=== PATIENT | male | born 1960 | race Caucasian/White ===

== ENCOUNTER 2016-06-28 21:56 | Observation (INO) | payer BC ==
[2016-06-28] MEDS ORDERED: NITROGLYCERIN OINT 1 INCH/GM PACKET TOPICAL STA (22:24)
[2016-06-28] MEDS ORDERED: ASPIRIN 81 MG CHEW PO STA (22:25)
--- NOTE | 2016-06-28 22:28 | ED ---
General Adult HPI - General Chief complaint: Chest Pain Stated complaint: shoulder, arm, facial tingling Time Seen by Provider: 06/28/16 22:15 Source: patient, family, RN notes reviewed Mode of arrival: ambulatory Limitations: no limitations - History of Present Illness Initial comments: Patient is a pleasant 46-year-old male presenting to the emergency Department with complaints of paresthesias. Onset was several days ago. Patient has been under increased stress with loss of his mother. Patient has complaints of paresthesias on both sides of his face. Patient feels like his skin is been burned and he needs to stretch it out. Patient does have an ache in his left shoulder. Patient also has 8 somewhat of his left arm and both of his legs. Patient has some sort of on sensation in his chest however this is difficult to describe. Patient states it is not pain. Patient states he does not discomfort. Patient does not feel stressed at this time. No history of similar symptoms previously. No weakness or confusion. - Related Data Home Medications Medication Instructions Recorded Confirmed Aspirin [Adult Low Dose Aspirin EC] 81 mg PO BID 06/28/16 06/28/16 Atenolol [Tenormin] 25 mg PO BID 06/28/16 06/28/16 Glucosam/Aman-Msm1/C/Steven/Bosw 1 tab PO HS 06/28/16 06/28/16 [Glucosamine-Chondroitin Tablet] Lisinopril-Hctz 10-12.5 mg 1 tab PO DAILY 06/28/16 06/28/16 [Zestoretic 10-12.5] Ranitidine HCl [Zantac] 150 mg PO HS 06/28/16 06/28/16 amLODIPine [Norvasc] 5 mg PO HS 06/28/16 06/28/16 Allergies Allergy/AdvReac Type Severity Reaction Status Date / Time No Known Allergies Allergy Verified 06/28/16 22:35 Review of Systems ROS Statement: Those systems with pertinent positive or pertinent negative responses have been documented in the HPI. ROS Other: All systems not noted in ROS Statement are negative. Constitutional: Denies: fever Eyes: Denies: eye pain ENT: Denies: ear pain Respiratory: Denies: cough, dyspnea Cardiovascular: Denies: palpitations Endocrine: Reports: fatigue Gastrointestinal: Denies: abdominal pain Genitourinary: Denies: urgency Musculoskeletal: Denies: arthralgia Skin: Denies: rash Neurological: Denies: weakness Past Medical History Past Medical History: Hyperlipidemia, Hypertension, Supraventricular Tachycardia (SVT) History of Any Multi-Drug Resistant Organisms: None Reported Past Surgical History: No Surgical Hx Reported Past Psychological History: No Psychological Hx Reported Smoking Status: Never smoker Past Alcohol Use History: None Reported Past Drug Use History: None Reported General Exam Limitations: no limitations General appearance: alert, in no apparent distress Head exam: Present: atraumatic Eye exam: Present: normal appearance, PERRL ENT exam: Present: normal oropharynx Neck exam: Present: normal inspection Respiratory exam: Present: normal lung sounds bilaterally. Absent: chest wall tenderness Cardiovascular Exam: Present: regular rate, normal rhythm Expanded Peripheral pulses: 2+: Radial (R), Radial (L), Posterior Tibialis (R), Posterior Tibialis (L) GI/Abdominal exam: Present: soft. Absent: tenderness Extremities exam: Present: normal inspection. Absent: pedal edema, calf tenderness Neurological exam: Present: alert, oriented X3, CN II-XII intact. Absent: motor sensory deficit Expanded Speech: Present: fluid speech Cranial nerves: EOM's Intact: Normal, Facial Sensation: Normal Sensory exam: Upper Extremity Light Touch: Normal, Lower Extremity Light Touch: Normal Motor strength exam: RUE: 5, LUE: 5, RLE: 5, LLE: 5 Eye Response: (4) open spontaneously Motor Response: (6) obeys commands Verbal Response: (5) oriented Psychiatric exam: Present: normal affect, normal mood Skin exam: Present: normal color Course Vital Signs 06/28/16 06/28/16 22:03 23:17 Temperature 99.6 F Pulse Rate 59 L 69 Respiratory 16 18 Rate Blood Pressure 146/72 116/57 O2 Sat by Pulse 95 95 Oximetry EKG Findings - EKG Comments: EKG Findings:: Normal sinus rhythm 64. For screening AV block with a W[place] of 206. QRS 112. QT 408. QTC 420. Normal axis. LVH criteria. Septal and inferior Q waves. No acute ST change. Medical Decision Making - Medical Decision Making Patient reevaluated and resting comfortably in bed. Patient and family updated on results and plan. Dr. vines notified for admission for Dr. Sullivan. - Lab Data Result diagrams: 06/28/16 22:53 06/28/16 22:53 Lab Results 06/28/16 06/28/16 06/28/16 Range/Units 22:53 22:53 22:53 WBC (3.8-10.6) k/uL RBC (4.30-5.90) m/uL Hgb (13.0-17.5) gm/dL Hct (39.0-53.0) % MCV (80.0-100.0) fL MCH (25.0-35.0) pg MCHC (31.0-37.0) g/dL RDW (11.5-15.5) % Plt Count (150-450) k/uL Neutrophils % % Lymphocytes % % Monocytes % % Eosinophils % % Basophils % % Neutrophils # (1.3-7.7) k/uL Lymphocytes # (1.0-4.8) k/uL Monocytes # (0-1.0) k/uL Eosinophils # (0-0.7) k/uL Basophils # (0-0.2) k/uL PT 10.4 (9.0-12.0) sec INR 1.0 (<1.1) APTT 23.0 (22.0-30.0) sec D-Dimer 0.42 (<0.60) mg/L FEU Sodium 139 (137-145) mmol/L Potassium 4.1 (3.5-5.1) mmol/L Chloride 103 (98-107) mmol/L Carbon Dioxide 24 (22-30) mmol/L Anion Gap 12 mmol/L BUN 18 (9-20) mg/dL Creatinine 0.99 (0.66-1.25) mg/dL Est GFR (MDRD) Af Amer >60 (>60 ml/min/1.73 sqM) Est GFR (MDRD) Non-Af >60 (>60 ml/min/1.73 sqM) Glucose 201 H (74-99) mg/dL Calcium 9.4 (8.4-10.2) mg/dL Magnesium 1.7 (1.6-2.3) mg/dL Total Bilirubin 0.6 (0.2-1.3) mg/dL AST 29 (17-59) U/L ALT 52 (21-72) U/L Alkaline Phosphatase 65 (38-126) U/L Total Creatine Kinase 134 (55-170) U/L CK-MB (CK-2) 1.0 (0.0-2.4) ng/mL CK-MB (CK-2) Rel Index 0.7 Troponin I <0.012 (0.000-0.034) ng/mL Total Protein 7.1 (6.3-8.2) g/dL Albumin 4.0 (3.5-5.0) g/dL 06/28/16 Range/Units 22:53 WBC 7.3 (3.8-10.6) k/uL RBC 4.84 (4.30-5.90) m/uL Hgb 15.6 (13.0-17.5) gm/dL Hct 44.3 (39.0-53.0) % MCV 91.4 (80.0-100.0) fL MCH 32.2 (25.0-35.0) pg MCHC 35.2 (31.0-37.0) g/dL RDW 13.3 (11.5-15.5) % Plt Count 190 (150-450) k/uL Neutrophils % 52 % Lymphocytes % 38 % Monocytes % 6 % Eosinophils % 1 % Basophils % 1 % Neutrophils # 3.8 (1.3-7.7) k/uL Lymphocytes # 2.8 (1.0-4.8) k/uL Monocytes # 0.5 (0-1.0) k/uL Eosinophils # 0.1 (0-0.7) k/uL Basophils # 0.1 (0-0.2) k/uL PT (9.0-12.0) sec INR (<1.1) APTT (22.0-30.0) sec D-Dimer (<0.60) mg/L FEU Sodium (137-145) mmol/L Potassium (3.5-5.1) mmol/L Chloride (98-107) mmol/L Carbon Dioxide (22-30) mmol/L Anion Gap mmol/L BUN (9-20) mg/dL Creatinine (0.66-1.25) mg/dL Est GFR (MDRD) Af Amer (>60 ml/min/1.73 sqM) Est GFR (MDRD) Non-Af (>60 ml/min/1.73 sqM) Glucose (74-99) mg/dL Calcium (8.4-10.2) mg/dL Magnesium (1.6-2.3) mg/dL Total Bilirubin (0.2-1.3) mg/dL AST (17-59) U/L ALT (21-72) U/L Alkaline Phosphatase (38-126) U/L Total Creatine Kinase (55-170) U/L CK-MB (CK-2) (0.0-2.4) ng/mL CK-MB (CK-2) Rel Index Troponin I (0.000-0.034) ng/mL Total Protein (6.3-8.2) g/dL Albumin (3.5-5.0) g/dL - Radiology Data Radiology results: image reviewed (Two-view chest x-ray shows no acute process) Disposition Clinical Impression: Chest pain, Hyperglycemia Disposition: ADMITTED IP TO THIS [facility] Referrals: Nba Sullivan DO [Primary Care Provider] - 1-2 days Decision Time: 00:09
[2016-06-28 23:03] LABS: Basophils # (A) 0.1 k/uL (0-0.2); Basophils % (A) 1 %; CH 32.2; CHCM 35.3; Eosinophils # (A) 0.1 k/uL (0-0.7); Eosinophils % (A) 1 %; HCT 44.3 % (39.0-53.0); HDW 2.84; HGB 15.6 gm/dL (13.0-17.5); Luc # (Auto) 0.11; Luc % (Auto) 2; Lymphocytes # (A) 2.8 k/uL (1.0-4.8); Lymphocytes % (A) 38 %; MCH 32.2 pg (25.0-35.0); MCHC 35.2 g/dL (31.0-37.0); MCV 91.4 fL (80.0-100.0); Mean Platelet Volume 7.3; Monocytes # (A) 0.5 k/uL (0-1.0); Monocytes % (A) 6 %; Neutrophils # (A) 3.8 k/uL (1.3-7.7); Neutrophils % (A) 52 %; RBC 4.84 m/uL (4.30-5.90); RDW 13.3 % (11.5-15.5); WBC 7.3 k/uL (3.8-10.6); WBC (Perox) 7.39
[2016-06-28 23:14] LABS: ALT 52 U/L (21-72); AST 29 U/L (17-59); Alkaline Phosphatase 65 U/L (38-126); Anion Gap 12 mmol/L; Blood Urea Nitrogen 18 mg/dL (9-20); Calcium 9.4 mg/dL (8.4-10.2); Carbon Dioxide 24 mmol/L (22-30); Chloride 103 mmol/L (98-107); Glucose 201 mg/dL (74-99); Magnesium 1.7 mg/dL (1.6-2.3); Non-African American GFR(MDRD) >60 (>60 ml/min/1.73 sqM); Potassium 4.1 mmol/L (3.5-5.1); Sodium 139 mmol/L (137-145); Total Bilirubin 0.6 mg/dL (0.2-1.3); Total Protein 7.1 g/dL (6.3-8.2)
[2016-06-28 23:21] LABS: Prothrombin Time 10.4 sec (9.0-12.0)
--- NOTE | 2016-06-28 23:31 | XR ---
EXAM: XR Chest, 2 Views CLINICAL HISTORY: Reason: Chest Pain TECHNIQUE: Frontal and lateral views of the chest. COMPARISON: No relevant prior studies available. FINDINGS: Lungs: Unremarkable. No consolidation. Pleural space: No pleural effusion. No pneumothorax. Heart: Unremarkable. No cardiomegaly. Mediastinum: Unremarkable. Bones/joints: Unremarkable. IMPRESSION: No acute cardiopulmonary disease.
[2016-06-28 23:41] LABS: Creatine Kinase 134 U/L (55-170)
[2016-06-28 23:55] LABS: Troponin I <0.012 ng/mL (0.000-0.034)
[2016-06-29] MEDS ORDERED: NITROGLYCERIN SL TABS 0.4 MG TAB SUBLINGUAL PRN (00:09)
[2016-06-29 01:06] VITALS: BMI 43.4
[2016-06-29] MEDS: NITROGLYCERIN OINT 1 INCH/GM PACKET TOPICAL SCH ×2 (06:44→12:57)
[2016-06-29 07:10] LABS: Creatine Kinase 92 U/L (55-170)
[2016-06-29 07:23] LABS: Creatine Kinase MB 0.6 ng/mL (0.0-2.4); Troponin I <0.012 ng/mL (0.000-0.034)
[2016-06-29] MEDS ORDERED: ASPIRIN 81 MG CHEW PO SCH (09:00)
[2016-06-29] MEDS ORDERED: LISINOPRIL-HCTZ 10-12.5 MG 1 EACH TAB PO SCH (09:00)
[2016-06-29] MEDS ORDERED: ATENOLOL 25 MG TAB PO SCH (09:00)
[2016-06-29] MEDS ORDERED: ENOXAPARIN 40 MG/0.4 ML SYRINGE SQ SCH (09:00)
[2016-06-29] MEDS ORDERED: FAMOTIDINE 20 MG TAB PO SCH (09:00)
--- NOTE | 2016-06-29 11:18 | CONS ---
DATE OF CONSULTATION: Nirmal Marks is a 56-year-old obese male who has been under a considerable amount of stress ( ) with his mother's . He has not been taking care of himself. His weight has gone up and he has been drinking pop regularly. His blood sugars are consistently in the 200s. He presented with numbness and tingling in the face, funny sensations behind his eyes, visual symptoms, paresthesias in the left arm, vague sensation in the left shoulder, and paresthesias and vague sensation in the leg on the left side. His 12-lead ECG shows sinus tachycardia and Q waves in the inferior leads and ( ) R waves in the precordial leads. His cardiac enzymes are normal. His blood sugar is 201. Liver functions are normal, but he has had a past history of abnormal LFTs and he is on statins. Statins were discontinued. Hemoglobin is normal. REVIEW OF SYSTEMS: No fever, chills or rigors. No cough or expectoration. No nausea, vomiting, or diarrhea. No hematuria or dysuria. No strokes. No recent seizures. Past medical history of hypertension, dyslipidemia, possibly nonsustained ventricular tachycardia. On examination, his blood pressure is in the normal range 111/56 mmHg, heart rate in the 60s, afebrile, 98.1 degrees Fahrenheit. Head and neck examination is normal. No JVD, thyromegaly or carotid bruit. Heart sounds, S1 and S2 are normal. Breath sounds are normal. Abdomen is soft, nontender. Extremities are warm, no edema. IMPRESSION: 1. Paresthesias in the face, right side of the face, left arm and left leg with no motor symptoms. 2. Elevated blood sugar levels and likely diabetes. 3. Dyslipidemia, but has intolerance to statins on account of liver function abnormalities. 4. Hypertension. Blood pressure is well controlled. 5. His cardiac testing last year showed nonsustained ventricular tachycardia. Currently, the stress test was normal. SUGGEST: From a cardiac standpoint, this gentleman has not had an acute myocardial infarction nor are his symptoms consistent with angina. He is having paresthesias on the right side of the face and the left side of the body and by neurologic workup may be appropriate I would look at metabolic factors such as diabetes. Also he will see Dr. Sullivan in the next 10 days. I would recommend that he sees Dr. Nancy Sheriff in the next 1 to 2 weeks and reassessment of LV function either with 2-D echo or with cardiac ( ) may be considered. This was discussed with the patient and his daughters.
[2016-06-29 11:52] LABS: Creatine Kinase MB 0.6 ng/mL (0.0-2.4); Troponin I 0.013 ng/mL (0.000-0.034)
[2016-06-29] MEDS ORDERED: RX INFO: IV CONTRAST WAS GIVEN 1 EACH MISC MISCELLANE PRN (12:59)
[2016-06-29] MEDS ORDERED: metFORMIN 500 MG TAB PO SCH (13:30)
--- NOTE | 2016-06-29 14:02 | HP ---
DATE OF ADMISSION: 06/29/2016 PRESENTING COMPLAINT: Multiple histories. HISTORY OF PRESENTING COMPLAINT: This is a very pleasant 56-year-old patient of Dr. Sullivan whose chronic stable medical conditions include hypertension, hyperlipidemia, kidney stones, and a fatty Patient just lost his mother about a week ago. Since then is rather grieving. At the same time, the patient has a multitude of symptoms. Patient has not been sleeping well. Maybe about 4 or 5 hours a night. Patient has some diffuse disease. Sometimes felt chest discomfort. All the time he feels some tingling in the left arm, and sometimes in the right arm. Sometimes feels like a floating sensation. Patient's sugars have been running high. Close to 160 in the morning. Patient was also trying to lose weight. Patient has had a cardiac work-up by Dr. Sheriff as an outpatient that was negative. Because of multitude of these symptoms, he presented. REVIEW OF SYSTEMS: CONSTITUTIONAL: Tired. HEENT: As above. RESPIRATORY: None. CARDIOVASCULAR: As above. GASTROINTESTINAL: None. GENITOURINARY: None. . MUSCULOSKELETAL: None. DERMATOLOGIC: None. HEMATOLOGIC: None. LYMPHATIC: None. PSYCHIATRY: Anxious. NEUROLOGICAL: Nonspecific. No focal. PAST MEDICAL HISTORY: History of hypertension, hyperlipidemia, renal stones, fatty liver. PAST SURGICAL HISTORY: None. SOCIAL HISTORY: Patient lives with is 4 children. Works at a [employer]. No smoking, alcohol. FAMILY HISTORY: Noncontributory to presentation. HOME MEDICATIONS: 1. Norvasc 5 mg p.o. q.h.s. 2. Zantac 150 mg p.o. q.h.s. 3. Zestoretic one tablet p.o. daily. 4. Glucosamine/chondroitin 1 tablet p.o. q.h.s. 5. Tenormin 25 mg p.o. b.i.d. 6. Aspirin 81 mg p.o. b.i.d. ALLERGIES: None. On examination, temperature 99.6, pulse 59, respiratory rate 16, blood pressure 146/92, pulse ox 95% on 2 L. GENERAL APPEARANCE: Well built, BMI of 43.4. Patient sitting up, anxious-appearing. EYES: Pupil equal, conjunctivae normal. HEENT: Oral cavity normal. NECK: JVD not raised. Mass not palpable. RESPIRATORY: Effort normal. LUNGS: Clear. CARDIOVASCULAR: First and second sounds normal. No edema. ABDOMEN: Soft, nontender, liver and spleen not palpable. LYMPHATIC: No lymph nodes palpable in neck or axillae. PSYCHIATRY: Alert and oriented x3. Mood and affect anxious-appearing. NEUROLOGICAL: Pupils equal. Cranial nerves grossly intact. Power and sensation grossly intact. INVESTIGATIONS: White count 7.3, hemoglobin 15.6, potassium 4.1, glucose 201. Troponin x3 negative. Chest x-ray negative. EKG normal sinus rhythm, poor R-wave progression. ASSESSMENT: 1. The patient present with multitude of symptoms, with no anatomical definition, has not been sleeping well. His symptoms are more psychosomatic. 2. Diabetes mellitus type 2, new diagnosis. 3. Essential hypertension. 4. Hyperlipidemia. 5. Fatty liver. 6. Morbid obesity, body mass index below 43.4. PLAN: Cardiology was consulted, but highly doubt this to be cardiac presentation. Negative cardiac work-up as outpatient. Patient will be started on metformin 500 mg twice a day. Will give patient melatonin so that he can sleep at night. Will do a CT scan of the brain with contrast, though highly doubt this to be a neuro presentation, mainly psychosomatic given the grieving from the loss of his mother.
--- NOTE | 2016-06-29 15:38 | CT ---
EXAMINATION TYPE: CT brain w con DATE OF EXAM: 06/29/2016 3:27 PM COMPARISON: NONE HISTORY: 56-year-old male with facial numbness and left arm numbness. CT DLP: 1071.00 mGycm Automated exposure control for dose reduction was used. Technique: Contiguous axial scanning of the brain is performed with IV Contrast, patient injected wit h 100 mL of Omnipaque 300. Coronal/sagittal reconstructions performed. FINDINGS: There is mild to moderate cerebral cortical volume loss. There is no abnormal enhancing mass or midl ine shift identified. No hydrocephalus. Large polyp or mucosal retention cyst within the left maxillary sinus. Additional lobulated mucosal t hickening within the right maxillary sinus. Mild mucosal thickening right ethmoid air cells. Trace opacification in inferior left mastoid air cells. There is rightward nasal septal deviation. Or bits and globes are intact. IMPRESSION: 1. Aside from mild to moderate cerebral cortical atrophy, negative contrast enhanced head CT exam. 2. Moderate chronic paranasal sinus disease. 3. Minimal trapped fluid in the inferior left mastoid air cells. Correlate for any mastoid pain to ex clude mastoiditis.
[2016-06-29 17:28] VITALS: BP 146/70; PULSE 61; RESP 18; TEMP 99.1
[2016-06-29] MEDS ORDERED: amLODIPine 5 MG TAB PO SCH (21:00)
--- NOTE | 2016-06-30 08:45 | DS ---
DATE OF ADMISSION: 06/29/2016 DATE OF DISCHARGE: 06/29/2016 FINAL DIAGNOSIS(ES): 1. Aches and pains, psychosomatic acute from bereavement in the family. 2. Diabetes mellitus type 2, on oral hypoglycemic. New diagnosis. 3. Essential hypertension. 4. Hyperlipidemia. 5. Fatty liver. 6. Morbid obesity; body mass index of 43.4. HOSPITAL COURSE: This patient who recently lost his mother presented with multiple symptoms no in an anatomical distribution. More compatible with bereavement, sleep deprivation. Sugars have been running high. Started on metformin. Seen by cardiology and did have a CT scan of the brain to make sure nothing really showed up. Did counselling over getting enough sleep, grief and grieving counselor [employer]. INVESTIGATIONS: The patient troponins are negative. CT scan of the brain with contrast was negative. CONSULTATIONS: Dr. Marv Arana from cardiology. DISCHARGE MEDICATIONS: 1. Aspirin 81 mg a day. 2. Tenormin 25 mg b.i.d. 3. Glucosamine/chondroitin 1 tablet p.o. q.h.s. 4. Zestoretic 11/18.5 1 tablet p.o. daily. 5. Zantac 150 mg p.o. q.h.s. 6. Norvasc 5 mg p.o. q.h.s. 7. Glucophage 500 mg p.o. b.i.d. Follow-up with Dr. Sullivan in 3 days. Follow up with Dr. Nancy Sheriff in 2 weeks.
[2016-06-30] MEDS ORDERED: ASPIRIN 325 MG TAB PO SCH (09:00)
== END 2016-06-29 18:30 | disposition home or self-care (01) ==
LOC: EC 21:56 → 3OBS 06-29 00:09
PROVIDERS: ADMIT Hospitalist; ATTEND Hospitalist
DX: R52 Pain, unspecified (principal); E11.65 Type 2 diabetes mellitus with hyperglycemia; R20.0 Anesthesia of skin; R20.2 Paresthesia of skin; R07.89 Other chest pain; Z72.820 Sleep deprivation; Z63.4 Disappearance and death of family member; E78.5 Hyperlipidemia, unspecified; I10 Essential (primary) hypertension; I47.1 Supraventricular tachycardia; E66.01 Morbid (severe) obesity due to excess calories; Z68.41 Body mass index [BMI] 40.0-44.9, adult; Z79.82 Long term (current) use of aspirin; Z79.899 Other long term (current) drug therapy; Z87.442 Personal history of urinary calculi; K76.0 Fatty (change of) liver, not elsewhere classified
CPT/HCPCS: 96372; 99285; 36415; 93005; 85379; 80053; 82550 ×2; 82553 ×2; 83735; 84484 ×2; 85025; 85610; 85730; 71020; 70460; G0378; J1650; Q9967

== ENCOUNTER 2018-05-25 09:56 | Day surgery (SDC) | payer BC ==
[2018-05-22 16:22] VITALS: BMI 43.4
[~2018-05-25 09:56] MED LIST: LACTATED RINGERS 1,000 ML IV SCH
[2018-05-25 10:17] VITALS: TEMP 98.2
[2018-05-25 10:41] LABS: Glucose,Whole Blood 158 mg/dL (75-99)
[2018-05-25] MEDS ORDERED: PROPOFOL 10 MG/ML 20 ML VIAL IV ONE (12:36)
[2018-05-25] MEDS ORDERED: LIDOCAINE 1% INJ 10MG/ML (20 ML MDV) ONE (12:36)
--- NOTE | 2018-05-25 13:14 | P.PCN ---
Date of Procedure: 05/25/18 Description of Procedure: BRIEF HISTORY: Patient is a 58-year-old pleasant male scheduled for an elective colonoscopy as a part of colorectal cancer screening. The patient denies any change in bowels, constipation, diarrhea, hematochezia or melena. No abdominal pain reported. The patient has never had a colonoscopy in the past. He denies any history of colon cancer. PROCEDURE PERFORMED: Colonoscopy. PREOPERATIVE DIAGNOSIS: Colon cancer screening, no previous colonoscopy. ESTIMATED BLOOD LOSS: Minimal. IV sedation per Anesthesia. PROCEDURE: After informed consent was obtained, the patient, was brought into the endoscopy unit. IV sedation was administered by Anesthesia under continuous monitoring. Digital rectal examination was normal. Initially the Olympus CF-190 flexible video colonoscope was then inserted in the rectum, gradually advanced into the cecum without any difficulty. Careful examination was performed as the scope was gradually being withdrawn. Ileocecal valve and the appendiceal orifice were visualized and appeared normal. Prep was excellent. Mucosa of the cecum, ascending colon, transverse colon, descending colon, sigmoid colon, and rectum appeared normal. A few small diverticula were noted throughout the colon. Retroflexion was performed in the rectum and no lesions were seen, mild internal hemorrhoids noted. The patient tolerated the procedure well. IMPRESSION: Normal-appearing colon from rectum to cecum. Mild internal hemorrhoids. Diverticulosis. RECOMMENDATIONS: Findings of this examination were discussed with the patient his daughter. Okay to resume diet. Recommend high-fiber diet in the future. Repeat colonoscopy in 10 years or sooner if signs or symptoms develop which warrant endoscopic evaluation.
[2018-05-25 13:16] VITALS: BP 122/80
[2018-05-25 13:37] VITALS: PULSE 63; RESP 16
== END 2018-05-25 13:40 | disposition home or self-care (01) ==
LOC: ORWHC2ENDO 09:56
PROVIDERS: ATTEND Internal Medicine
DX: Z12.11 Encounter for screening for malignant neoplasm of colon (principal); K64.8 Other hemorrhoids; K57.30 Diverticulosis of large intestine without perforation or abscess without bleeding; E78.5 Hyperlipidemia, unspecified; I10 Essential (primary) hypertension; M19.90 Unspecified osteoarthritis, unspecified site; Z79.82 Long term (current) use of aspirin; Z79.899 Other long term (current) drug therapy; I47.1 Supraventricular tachycardia; E11.9 Type 2 diabetes mellitus without complications; K21.9 Gastro-esophageal reflux disease without esophagitis; Z79.84 Long term (current) use of oral hypoglycemic drugs
CPT/HCPCS: J2001; J2704; G0121

== ENCOUNTER 2019-08-03 14:13 | Inpatient (IN) | payer BC ==
[2019-08-03] MEDS ORDERED: ASPIRIN 81 MG PO STA (14:41)
--- NOTE | 2019-08-03 14:44 | ED ---
General Adult HPI - General Chief complaint: Arrhythmia/Palpitations Stated complaint: New Onset A Fib Time Seen by Provider: 08/03/19 14:20 Source: patient, RN notes reviewed Mode of arrival: ambulatory Limitations: no limitations - History of Present Illness Initial comments: Patient is a pleasant 59-year-old male presenting to the emergency department with concern for new onset atrial fibrillation. Patient has been dealing with cough for several months and has had 4 rounds of antibiotics. Patient has green sputum at times. Patient has been on multiple antibiotics with improvement however not resolution of symptoms. Symptoms are mild at this time. Patient feels a little bit warm. No difficulty in breathing. No palpitations. Patient did go to pulmonary doctor today who found him to be in atrial fibrillation and recommended he come to the emergency Department. No history of atrial ablation. Patient was previously evaluated for irregular rhythm years ago and was found to have PVCs with Dr. Sheriff. - Related Data Home Medications Medication Instructions Recorded Confirmed Aspirin [Adult Low Dose Aspirin EC] 81 mg PO BID 06/28/16 08/03/19 Atenolol [Tenormin] 25 mg PO BID 06/28/16 08/03/19 Glucosam/Aman-Msm1/C/Steven/Bosw 1 tab PO BID 06/28/16 08/03/19 [Glucosamine-Chondroitin Tablet] Lisinopril-Hctz 10-12.5 mg 1 tab PO DAILY 06/28/16 08/03/19 [Zestoretic 10-12.5] amLODIPine [Norvasc] 5 mg PO HS 06/28/16 08/03/19 Albuterol Sulfate [Ventolin HFA] 2 puff INHALATION RT-Q4H PRN 08/03/19 08/03/19 Atorvastatin Calcium [Lipitor] 20 mg PO HS 08/03/19 08/03/19 metFORMIN HCL [Glucophage] 100 mg PO AC-BID 08/03/19 08/03/19 predniSONE See Taper PO DAILY 08/03/19 08/03/19 Allergies Allergy/AdvReac Type Severity Reaction Status Date / Time No Known Allergies Allergy Verified 08/03/19 14:19 Review of Systems ROS Statement: Those systems with pertinent positive or pertinent negative responses have been documented in the HPI. ROS Other: All systems not noted in ROS Statement are negative. Constitutional: Reports: fever, chills Eyes: Denies: eye pain ENT: Denies: ear pain Respiratory: Reports: cough. Denies: dyspnea Cardiovascular: Denies: chest pain, palpitations Endocrine: Denies: fatigue Gastrointestinal: Denies: abdominal pain Genitourinary: Denies: dysuria Musculoskeletal: Denies: back pain Skin: Denies: rash Neurological: Denies: weakness Past Medical History Past Medical History: Hyperlipidemia, Hypertension, Osteoarthritis (OA), Suprav entricular Tachycardia (SVT) Additional Past Medical History / Comment(s): KIDNEY STONES History of Any Multi-Drug Resistant Organisms: None Reported Past Surgical History: No Surgical Hx Reported Additional Past Surgical History / Comment(s): WISDOM TEETH EXTRACTIONS Past Anesthesia/Blood Transfusion Reactions: No Reported Reaction Past Psychological History: No Psychological Hx Reported Smoking Status: Never smoker Past Alcohol Use History: None Reported Past Drug Use History: None Reported - Past Family History Mother Family Medical History: No Reported History General Exam Limitations: no limitations General appearance: alert, in no apparent distress Head exam: Present: normocephalic Eye exam: Present: normal appearance, PERRL Neck exam: Present: normal inspection Respiratory exam: Present: normal lung sounds bilaterally Cardiovascular Exam: Present: irregular rhythm GI/Abdominal exam: Present: soft. Absent: tenderness Extremities exam: Present: pedal edema (+1 bilateral which patient states is chronic and unchanged). Absent: calf tenderness Neurological exam: Present: alert Psychiatric exam: Present: normal affect, normal mood Skin exam: Present: normal color Course Vital Signs 08/03/19 08/03/19 08/03/19 14:16 15:30 15:51 Temperature 100.1 F H Pulse Rate 105 H 99 92 Respiratory 16 20 Rate Blood Pressure 125/70 108/64 O2 Sat by Pulse 95 96 Oximetry 08/03/19 16:00 Temperature Pulse Rate 101 H Respiratory 20 Rate Blood Pressure 101/62 O2 Sat by Pulse 99 Oximetry EKG Findings - EKG Comments: EKG Findings:: A flutter with a rate of 107. QRS 102. QT 320. QTc 427. Normal axis. Inferior Q waves. No acute ST change. Medical Decision Making - Medical Decision Making Patient reevaluated and resting comfortably in bed. Heart rate at 104, H a flutter. Patient updated on results and plan. Case was discussed in detail with Dr. Broussard, covering for Dr. Mcdaniel, who admits for Dr. Sullivan. He is currently evaluating patient and will admit. - Lab Data Result diagrams: 08/03/19 14:40 08/03/19 14:40 Lab Results 08/03/19 08/03/19 08/03/19 Range/Units 14:40 14:40 14:40 WBC 18.7 H (3.8-10.6) k/uL RBC 5.07 (4.30-5.90) m/uL Hgb 15.6 (13.0-17.5) gm/dL Hct 46.5 (39.0-53.0) % MCV 91.8 (80.0-100.0) fL MCH 30.7 (25.0-35.0) pg MCHC 33.5 (31.0-37.0) g/dL RDW 13.9 (11.5-15.5) % Plt Count 189 (150-450) k/uL Neutrophils % 87 % Lymphocytes % 6 % Monocytes % 6 % Eosinophils % 1 % Basophils % 0 % Neutrophils # 16.3 H (1.3-7.7) k/uL Lymphocytes # 1.2 (1.0-4.8) k/uL Monocytes # 1.1 H (0-1.0) k/uL Eosinophils # 0.1 (0-0.7) k/uL Basophils # 0.1 (0-0.2) k/uL PT 9.8 (9.0-12.0) sec INR 0.9 (<1.2) APTT 22.6 (22.0-30.0) sec Sodium 136 L (137-145) mmol/L Potassium 4.1 (3.5-5.1) mmol/L Chloride 101 (98-107) mmol/L Carbon Dioxide 24 (22-30) mmol/L Anion Gap 11 mmol/L BUN 18 (9-20) mg/dL Creatinine 0.88 (0.66-1.25) mg/dL Est GFR (CKD-EPI)AfAm >90 (>60 ml/min/1.73 sqM) Est GFR (CKD-EPI)NonAf >90 (>60 ml/min/1.73 sqM) Glucose 204 H (74-99) mg/dL Calcium 9.5 (8.4-10.2) mg/dL Magnesium 1.6 (1.6-2.3) mg/dL Total Bilirubin 0.8 (0.2-1.3) mg/dL AST 21 (17-59) U/L ALT 32 (4-49) U/L Alkaline Phosphatase 53 (38-126) U/L Creatine Kinase 59 (55-170) U/L Troponin I (0.000-0.034) ng/mL Total Protein 7.0 (6.3-8.2) g/dL Albumin 4.2 (3.5-5.0) g/dL TSH 0.945 (0.465-4.680) mIU/L Urine Color Urine Appearance (Clear) Urine pH (5.0-8.0) Ur Specific Cadet (1.001-1.035) Urine Protein (Negative) Urine Glucose (UA) (Negative) Urine Ketones (Negative) Urine Blood (Negative) Urine Nitrite (Negative) Urine Bilirubin (Negative) Urine Urobilinogen (<2.0) mg/dL Ur Leukocyte Esterase (Negative) Urine RBC (0-5) /hpf Urine WBC (0-5) /hpf Amorphous Sediment (None) /hpf Urine Bacteria (None) /hpf Hyaline Casts (0-2) /lpf Urine Mucus (None) /hpf Urine Opiates Screen (NotDetected) Ur Oxycodone Screen (NotDetected) Urine Methadone Screen (NotDetected) Ur Propoxyphene Screen (NotDetected) Ur Barbiturates Screen (NotDetected) U Tricyclic Antidepress (NotDetected) Ur Phencyclidine Scrn (NotDetected) Ur Amphetamines Screen (NotDetected) U Methamphetamines Scrn (NotDetected) U Benzodiazepines Scrn (NotDetected) Urine Cocaine Screen (NotDetected) U Marijuana (THC) Screen (NotDetected) 08/03/19 08/03/19 Range/Units 14:40 15:14 WBC (3.8-10.6) k/uL RBC (4.30-5.90) m/uL Hgb (13.0-17.5) gm/dL Hct (39.0-53.0) % MCV (80.0-100.0) fL MCH (25.0-35.0) pg MCHC (31.0-37.0) g/dL RDW (11.5-15.5) % Plt Count (150-450) k/uL Neutrophils % % Lymphocytes % % Monocytes % % Eosinophils % % Basophils % % Neutrophils # (1.3-7.7) k/uL Lymphocytes # (1.0-4.8) k/uL Monocytes # (0-1.0) k/uL Eosinophils # (0-0.7) k/uL Basophils # (0-0.2) k/uL PT (9.0-12.0) sec INR (<1.2) APTT (22.0-30.0) sec Sodium (137-145) mmol/L Potassium (3.5-5.1) mmol/L Chloride (98-107) mmol/L Carbon Dioxide (22-30) mmol/L Anion Gap mmol/L BUN (9-20) mg/dL Creatinine (0.66-1.25) mg/dL Est GFR (CKD-EPI)AfAm (>60 ml/min/1.73 sqM) Est GFR (CKD-EPI)NonAf (>60 ml/min/1.73 sqM) Glucose (74-99) mg/dL Calcium (8.4-10.2) mg/dL Magnesium (1.6-2.3) mg/dL Total Bilirubin (0.2-1.3) mg/dL AST (17-59) U/L ALT (4-49) U/L Alkaline Phosphatase (38-126) U/L Creatine Kinase (55-170) U/L Troponin I <0.012 (0.000-0.034) ng/mL Total Protein (6.3-8.2) g/dL Albumin (3.5-5.0) g/dL TSH (0.465-4.680) mIU/L Urine Color Light Yellow Urine Appearance Clear (Clear) Urine pH 5.5 (5.0-8.0) Ur Specific Cadet 1.018 (1.001-1.035) Urine Protein Negative (Negative) Urine Glucose (UA) Negative (Negative) Urine Ketones Negative (Negative) Urine Blood Negative (Negative) Urine Nitrite Negative (Negative) Urine Bilirubin Negative (Negative) Urine Urobilinogen <2.0 (<2.0) mg/dL Ur Leukocyte Esterase Trace H (Negative) Urine RBC 1 (0-5) /hpf Urine WBC 15 H (0-5) /hpf Amorphous Sediment Rare H (None) /hpf Urine Bacteria Rare H (None) /hpf Hyaline Casts 1 (0-2) /lpf Urine Mucus Rare H (None) /hpf Urine Opiates Screen Not Detected (NotDetected) Ur Oxycodone Screen Not Detected (NotDetected) Urine Methadone Screen Not Detected (NotDetected) Ur Propoxyphene Screen Not Detected (NotDetected) Ur Barbiturates Screen Not Detected (NotDetected) U Tricyclic Antidepress Not Detected (NotDetected) Ur Phencyclidine Scrn Not Detected (NotDetected) Ur Amphetamines Screen Not Detected (NotDetected) U Methamphetamines Scrn Not Detected (NotDetected) U Benzodiazepines Scrn Not Detected (NotDetected) Urine Cocaine Screen Not Detected (NotDetected) U Marijuana (THC) Screen Not Detected (NotDetected) - Radiology Data Radiology results: image reviewed (Chest x-ray showed no acute process) Critical Care Time Critical Care Time: Yes Total Critical Care Time: 33 Disposition Clinical Impression: Atrial flutter with rapid ventricular response Disposition: ADMITTED IP TO THIS HOSP Is patient prescribed a controlled substance at d/c from ED?: No Referrals: Nba Sullivan DO [Primary Care Provider] - 1-2 days Decision Time: 16:15
[2019-08-03 15:00] LABS: Basophils # (A) 0.1 k/uL (0-0.2); Basophils % (A) 0 %; Eosinophils # (A) 0.1 k/uL (0-0.7); Eosinophils % (A) 1 %; HCT 46.5 % (39.0-53.0); HGB 15.6 gm/dL (13.0-17.5); Lymphocytes # (A) 1.2 k/uL (1.0-4.8); Lymphocytes % (A) 6 %; MCH 30.7 pg (25.0-35.0); MCHC 33.5 g/dL (31.0-37.0); MCV 91.8 fL (80.0-100.0); Mean Platelet Volume 7.8; Monocytes # (A) 1.1 k/uL (0-1.0); Monocytes % (A) 6 %; Neutrophils # (A) 16.3 k/uL (1.3-7.7); Neutrophils % (A) 87 %; Platelet Count 189 k/uL (150-450); RBC 5.07 m/uL (4.30-5.90); RDW 13.9 % (11.5-15.5); WBC 18.7 k/uL (3.8-10.6)
[2019-08-03] MEDS ORDERED: DILTIAZEM 125 MG in SODIUM CHLORIDE 0.9% 100 ML IV SCH (15:00)
[2019-08-03] MEDS ORDERED: IPRATROPIUM-ALBUTEROL 3 ML NEB INHALATION STA (15:11)
[2019-08-03 15:13] LABS: ALT 32 U/L (4-49); AST 21 U/L (17-59); African American GFR (CKD) >90 (>60 ml/min/1.73 sqM); Albumin 4.2 g/dL (3.5-5.0); Alkaline Phosphatase 53 U/L (38-126); Anion Gap 11 mmol/L; Blood Urea Nitrogen 18 mg/dL (9-20); Calcium 9.5 mg/dL (8.4-10.2); Carbon Dioxide 24 mmol/L (22-30); Chloride 101 mmol/L (98-107); Creatine Kinase 59 U/L (55-170); Glucose 204 mg/dL (74-99); Magnesium 1.6 mg/dL (1.6-2.3); Non-African American GFR(CKD) >90 (>60 ml/min/1.73 sqM); Potassium 4.1 mmol/L (3.5-5.1); Sodium 136 mmol/L (137-145); Total Bilirubin 0.8 mg/dL (0.2-1.3)
[2019-08-03 15:27] LABS: INR 0.9 (<1.2); Partial Thromboplastin Time 22.6 sec (22.0-30.0); Prothrombin Time 9.8 sec (9.0-12.0)
--- NOTE | 2019-08-03 15:27 | XR ---
EXAMINATION TYPE: XR chest 2V DATE OF EXAM: 08/03/2019 COMPARISON: 06/28/2016 TECHNIQUE: PA and lateral views submitted. HISTORY: Dysrhythmia FINDINGS: The lungs are clear and there is no pneumothorax, pleural effusion, or focal pneumonia. Heart is en larged. Biapical pleural thickening. No overt failure. Hypertrophic and degenerative change of the sp ine. IMPRESSION: 1. No acute process.
[2019-08-03 15:41] LABS: Amorphous Sediment,Urine Rare /hpf; Appearance,Urine Clear (Clear); Bacteria,Urine Rare /hpf; Bilirubin,Urine Negative (Negative); Blood,Urine Negative (Negative); Color,Urine Light Yellow; Glucose,Urine (UA) Negative (Negative); Hyaline Casts,Urine 1 /lpf (0-2); Ketones,Urine Negative (Negative); Leukocyte Esterase,Urine Trace (Negative); Mucus,Urine Rare /hpf; Nitrite,Urine Negative (Negative); PH, Urine 5.5 (5.0-8.0); Protein,Urine Negative (Negative); RBC,Urine 1 /hpf (0-5); Specific Gravity,Urine 1.018 (1.001-1.035); Urobilinogen,Urine <2.0 mg/dL (<2.0); WBC,Urine 15 /hpf (0-5)
[2019-08-03 15:48] LABS: Amphetamine Screen,Urine Not Detected (NotDetected); Barbiturate Screen,Urine Not Detected (NotDetected); Benzodiazepines Screen,Urine Not Detected (NotDetected); Cocaine Screen,Urine Not Detected (NotDetected); Methadone Screen, Urine Not Detected (NotDetected); Opiate Screen,Urine Not Detected (NotDetected); Oxycodone Screen, Urine Not Detected (NotDetected); Phencyclidine Screen,Urine Not Detected (NotDetected); Tricyclic Antidepressant,Urine Not Detected (NotDetected); Urn Cannabinoid Scrn Not Detected (NotDetected)
[2019-08-03] MEDS ORDERED: HEPARIN SODIUM,PORCINE 5,000 UNIT/ML 1 ML VIAL IV ONE (16:16)
[2019-08-03] MEDS ORDERED: NITROGLYCERIN SL TABS 0.4 MG TAB SUBLINGUAL PRN (16:16)
[2019-08-03] MEDS ORDERED: HEPARIN SODIUM,PORCINE 5,000 UNIT/ML 1 ML VIAL IV PRN (16:16)
[2019-08-03] MEDS ORDERED: HEPARIN SOD,PORK IN 0.45% NACL 25,000 UNIT in 0.45% NACL 1 250ML.BAG IV SCH (16:30)
[2019-08-03] MEDS ORDERED: AZITHROMYCIN 500 MG in SODIUM CHLORIDE 0.9% 250 ML IVPB STA (16:40)
[2019-08-03] MEDS: NITROGLYCERIN OINT 1 INCH/GM PACKET TOPICAL SCH ×2 (18:00→23:29)
--- NOTE | 2019-08-03 18:37 | ECHOF ---
Referral Reason:New-onset atrial flutter MEASUREMENTS -------- HEIGHT: 182.9 cm WEIGHT: 141.5 kg BP: 101/62 RVIDd: 2.9 cm (< 3.3) IVSd: 1.8 cm (0.6 - 1.1) LVIDd: 4.3 cm (3.9 - 5.3) LVPWd: 1.8 cm (0.6 - 1.1) IVSs: 2.5 cm LVIDs: 2.5 cm LVPWs: 2.2 cm LAESV Index (A-L): 30.66 ml/m Ao Diam: 4.8 cm (2.0 - 3.7) AV Cusp: 2.2 cm (1.5 - 2.6) RAP: 5.00 mmHg RVSP: 20.73 mmHg FINDINGS -------- Atrial fibrillation. This was a technically difficult study with suboptimal apical views. The left ventricular size is normal. There is severe concentric left ventricular hypertrophy. Ove rall left ventricular systolic function is normal with, an EF between 55 - 60 %. Left ventricular f illimg pressure cannot be estimated due to Atrial fibrillation. The right ventricle is normal in size. LA is midly dilated 29-33ml/m2. The right atrium was not well visualized. xx ml of Lumason was utilized for enhancement of images. There is mild aortic valve sclerosis. There is no evidence of aortic regurgitation. AOV is possib le Bicuspid. The mitral valve is normal. No mitral regurgitation. Mild tricuspid regurgitation present. There is no evidence of pulmonary hypertension. The right v entricular systolic pressure, as measured by Doppler, is 20.73mmHg. The pulmonic valve was not well visualized. There is no pulmonic regurgitation present. The aortic root size is normal. IVC Not well visulized. There is no pericardial effusion. CONCLUSIONS -------- 1. Atrial fibrillation. 2. There is severe concentric left ventricular hypertrophy. 3. Overall left ventricular systolic function is normal with, an EF between 55 - 60 %. 4. Left ventricular fillimg pressure cannot be estimated due to Atrial fibrillation. 5. LA is midly dilated 29-33ml/m2. 6. xx ml of Lumason was utilized for enhancement of images. 7. There is no evidence of aortic regurgitation. 8. AOV is possible Bicuspid. 9. No mitral regurgitation. 10. Mild tricuspid regurgitation present. 11. There is no evidence of pulmonary hypertension. 12. There is no pericardial effusion. [employer]: Josette Ceballos RDCS
--- NOTE | 2019-08-03 19:39 | P.HPIM ---
History of Present Illness This is a pleasant 59 years old male with past medical history of hypertension, hyperlipidemia, osteoarthritis, supraventricular tachycardia. He was sent by his audit associate Dr. Beckwith for atrial flutter, he follows up with Dr. Beckwith for chronic cough with plan for him to get bronchoscopy as per ED physician, however patient states that since March his been having cough with phlegm and his been following up with his PCP Dr. Mcgovern who tried him several antibiotics the last antibiotic which was fourth one was doxycycline given to the patient as long as prednisone taper with no much benefit, so Dr. Sullivan refer him to Dr. Beckwith, in the office is attended breathing treatment and EKG when they found arrhythmia they send him to emergency room. On admission he has low-grade temperature of 100.1, blood pressure 101/62, heart rate is 101, saturating 99% and 2 L oxygen. Labs show WBC of 18.7 K, INR and BMP is unremarkable. Liver enzymes not elevated and troponin less than 0.012. Urinalysis no suspicious of infection. Chest x-ray: No acute process. EKG showed atrial flutter with variable AV block at a rate of 107 and QTC 427. In the emergency room patient was given aspirin a started on Cardizem drip. He denies smoking, alcohol or illicit drug. He had seen Dr. Sheriff about 3 years ago when he had negative stress test 2 Review of Systems CONSTITUTIONAL: No fever, no malaise, no fatigue. HEENT: No recent visual problems or hearing problems. Denied any sore throat. CARDIOVASCULAR: No orthopnea, PND, no palpitations, no syncope. PULMONARY: No shortness of breath, no hemoptysis. GASTROINTESTINAL: No diarrhea, no nausea, no vomiting, no abdominal pain. Normoactive bowel sounds. NEUROLOGICAL: No headaches, no weakness, no numbness. HEMATOLOGICAL: Denies any bleeding or petechiae. GENITOURINARY: Denies any burning micturition, frequency, or urgency. MUSCULOSKELETAL/RHEUMATOLOGICAL: Denies any joint pain, swelling, or any muscle pain. ENDOCRINE: Denies any polyuria or polydipsia. Past Medical History Past Medical History: Hyperlipidemia, Hypertension, Osteoarthritis (OA), Supraventricular Tachycardia (SVT) Additional Past Medical History / Comment(s): KIDNEY STONES History of Any Multi-Drug Resistant Organisms: None Reported Past Surgical History: No Surgical Hx Reported Additional Past Surgical History / Comment(s): WISDOM TEETH EXTRACTIONS Past Anesthesia/Blood Transfusion Reactions: No Reported Reaction Past Psychological History: No Psychological Hx Reported Smoking Status: Never smoker Past Alcohol Use History: None Reported Past Drug Use History: None Reported - Past Family History Mother Family Medical History: No Reported History Medications and Allergies Home Medications Medication Instructions Recorded Confirmed Type Aspirin [Adult Low Dose Aspirin EC] 81 mg PO BID 06/28/16 08/03/19 History Atenolol [Tenormin] 25 mg PO BID 06/28/16 08/03/19 History Glucosam/Aman-Msm1/C/Steven/Bosw 1 tab PO BID 06/28/16 08/03/19 History [Glucosamine-Chondroitin Tablet] Lisinopril-Hctz 10-12.5 mg 1 tab PO DAILY 06/28/16 08/03/19 History [Zestoretic 10-12.5] amLODIPine [Norvasc] 5 mg PO HS 06/28/16 08/03/19 History Albuterol Sulfate [Ventolin HFA] 2 puff INHALATION RT-Q4H PRN 08/03/19 08/03/19 History Atorvastatin Calcium [Lipitor] 20 mg PO HS 08/03/19 08/03/19 History metFORMIN HCL [Glucophage] 100 mg PO AC-BID 08/03/19 08/03/19 History predniSONE See Taper PO DAILY 08/03/19 08/03/19 History Allergies Allergy/AdvReac Type Severity Reaction Status Date / Time No Known Allergies Allergy Verified 08/03/19 14:19 Physical Exam Vitals: Vital Signs Temp Pulse Resp BP Pulse Ox 08/03/19 16:00 101 H 20 101/62 99 08/03/19 15:51 92 08/03/19 15:30 99 20 108/64 96 08/03/19 14:16 100.1 F H 105 H 16 125/70 95 Intake and Output 08/03/19 08/03/19 08/03/19 06:59 14:59 22:59 Other: Weight 141.521 kg GENERAL: The patient is alert and oriented x3, not in any acute distress. Obese HEENT: Pupils are round and equally reacting to light. EOMI. No scleral icterus. No conjunctival pallor. Normocephalic, atraumatic. No pharyngeal erythema. No thyromegaly. CARDIOVASCULAR: S1 and S2 present. No murmurs, rubs, or gallops. PULMONARY: Chest is clear to auscultation, no wheezing or crackles. ABDOMEN: Soft, nontender, nondistended, normoactive bowel sounds. No palpable organomegaly. MUSCULOSKELETAL: No joint swelling or deformity. EXTREMITIES: No cyanosis, clubbing, or pedal edema. NEUROLOGICAL: Gross neurological examination did not reveal any focal deficits. SKIN: No rashes. No petechiae Results CBC & Chem 7: 08/03/19 14:40 08/03/19 14:40 Labs: Abnormal Lab Results - Last 24 Hours (Table) 08/03/19 08/03/19 08/03/19 Range/Units 14:40 14:40 15:14 WBC 18.7 H (3.8-10.6) k/uL Neutrophils # 16.3 H (1.3-7.7) k/uL Monocytes # 1.1 H (0-1.0) k/uL Sodium 136 L (137-145) mmol/L Glucose 204 H (74-99) mg/dL Ur Leukocyte Esterase Trace H (Negative) Urine WBC 15 H (0-5) /hpf Amorphous Sediment Rare H (None) /hpf Urine Bacteria Rare H (None) /hpf Urine Mucus Rare H (None) /hpf Assessment and Plan Assessment: Atrial flutter With variable black Possible acute tracheobronchitis Sepsis with systemic inflammatory response with fever, leukocytosis and tachycardia Hypertension Hyperlipidemia Osteoarthritis morbid obesity Plan: This is a pleasant 59 years old male who presents with sepsis, unknown source of infection. With atrial flutter. Also has ongoing ough. start antibiotics, send sputum culture Cardiology consult, continue with aspirin and Cardizem drip and switched to oral when appropriate. Continue with heparin drip and normal sounding Labs and medication were reviewed.. Continue same treatment. Continue with symptomatic treatment. Resume home medication. Monitor lytes and vitals. DVT and GI prophylaxis. Further recommendations of the clinical course of the patient DVT prophylaxis: heparin GI Prophylaxis: Pepcid
[2019-08-03] MEDS: SODIUM CHLORIDE 0.9% 1,000 ML IV SCH (19:45)
[2019-08-03 21:38] LABS: Glucose,Whole Blood 199 mg/dL (75-99)
[2019-08-03] MEDS: guaiFENesin-DM 100-10MG/5ML 10 ML CUP PO SCH (22:38)
[2019-08-04] MEDS: NITROGLYCERIN OINT 1 INCH/GM PACKET TOPICAL SCH (05:30)
[2019-08-04] MEDS: guaiFENesin-DM 100-10MG/5ML 10 ML CUP PO SCH ×3 (05:38→19:52)
[2019-08-04 06:20] LABS: Glucose,Whole Blood 180 mg/dL (75-99)
[2019-08-04] MEDS: INSULIN ASPART (NovoLOG) 100 UNIT/ML VIAL SQ SCH ×4 (06:25→19:53)
[2019-08-04 08:39] LABS: Basophils # (A) 0.1 k/uL (0-0.2); Basophils % (A) 0 %; Eosinophils # (A) 0.1 k/uL (0-0.7); Eosinophils % (A) 0 %; HCT 44.9 % (39.0-53.0); HGB 14.4 gm/dL (13.0-17.5); Lymphocytes # (A) 1.9 k/uL (1.0-4.8); Lymphocytes % (A) 16 %; MCH 30.1 pg (25.0-35.0); MCHC 32.2 g/dL (31.0-37.0); MCV 93.7 fL (80.0-100.0); Mean Platelet Volume 8.1; Monocytes # (A) 0.7 k/uL (0-1.0); Monocytes % (A) 5 %; Neutrophils # (A) 9.5 k/uL (1.3-7.7); Neutrophils % (A) 78 %; Platelet Count 148 k/uL (150-450); RBC 4.79 m/uL (4.30-5.90); WBC 12.3 k/uL (3.8-10.6)
[2019-08-04 08:51] LABS: African American GFR (CKD) >90 (>60 ml/min/1.73 sqM); Anion Gap 8 mmol/L; Blood Urea Nitrogen 14 mg/dL (9-20); Calcium 8.7 mg/dL (8.4-10.2); Carbon Dioxide 27 mmol/L (22-30); Chloride 99 mmol/L (98-107); Glucose 155 mg/dL (74-99); Non-African American GFR(CKD) >90 (>60 ml/min/1.73 sqM); Potassium 4.4 mmol/L (3.5-5.1); Sodium 134 mmol/L (137-145)
[2019-08-04 09:27] LABS: Cholesterol 151 mg/dL (<200); HDL Cholesterol 54 mg/dL (40-60); LDL Cholesterol,Calculated 73 mg/dL (0-99); Triglycerides 119 mg/dL (<150)
[2019-08-04] MEDS: APIXABAN 5 MG TAB PO SCH ×2 (10:46→19:53)
[2019-08-04] MEDS: DILTIAZEM ORAL 30 MG TAB PO SCH ×3 (10:46→22:52)
[2019-08-04] MEDS: ASPIRIN 325 MG TAB PO SCH (10:46)
[2019-08-04] MEDS: SODIUM CHLORIDE 0.9% 1,000 ML IV SCH ×2 (10:49→19:57)
[2019-08-04] MEDS: ATENOLOL 25 MG TAB PO SCH ×2 (10:55→19:53)
--- NOTE | 2019-08-04 11:35 | CONS ---
CHAO Kinney is a 59-year-old gentleman with history of hypertension, diabetes, dyslipidemia, who has had recent symptoms of persistent cough and productive sputum for the last several months. He was evaluated by Dr. Sullivan in the outpatient setting and had gone through multiple courses of antibiotics. As he was not getting better, he was referred to Dr. Beckwith who did PFTs an EKG on him and found that he was in atrial flutter for which he sent him to the emergency room from where he got admitted. At the time of my evaluation this morning, he remains in atypical atrial flutter with reasonably well controlled heart rate. He remained afebrile with a temperature of 101.7 and patient had been apparently being tested for coronavirus and was found to be negative. From cardiac standpoint, I am going to control his heart rate, anticoagulate him and once he is adequately anticoagulated over the next 3 weeks, I am going to do a WALLY and cardiovert him. He had an echocardiogram that shows normal LV systolic function. Patient has multiple risk factors for stroke including hypertension, diabetes. CURRENT MEDICATIONS: Include Lipitor 20 daily, Glucophage 1000 b.i.d., Zestoretic, Norvasc, Tenormin, aspirin and albuterol. ALLERGIES: There are no known drug allergies. FAMILY HISTORY: Negative for premature coronary artery disease. SOCIAL HISTORY: Negative for current smoking, EtOH abuse, or drug abuse. REVIEW OF SYSTEMS: HEENT is unremarkable. CARDIAC: As described above. RESPIRATORY: As described above. GI negative. Genitourinary negative. ALLERGY none. IMMUNOLOGY: Negative. Skin negative. Musculoskeletal significant for arthritis. Psychosocial negative. CONSTITUTIONAL negative. Oncological negative. [employer] negative. Rest of the system review is not relevant. PHYSICAL EXAMINATION: On exam, T-max is 101.7, heart rate is 100 beats per minute, blood pressure is 147/68, O2 saturation is 97% on 2 L. There is no jugular venous distention. Carotid upstroke is normal. There is no bruit. Chest exam reveals occasional rhonchi bilaterally. Heart exam reveals first and second heart sounds, irregular rhythm. No murmur. Abdomen soft. Exam of extremities did not reveal any edema. Peripheral pulses are felt. [employer] exam did not reveal focal neurological deficits. LAB: Show a hemoglobin of 14.4, platelet count is 148, potassium is 4.4, creatinine is 0.86. LDL cholesterol is 73. Troponin is normal. ASSESSMENT: 1. Atypical atrial flutter. 2. Tracheobronchitis. 3. Hypertension. 4. Diabetes. PLAN: We will control the heart rate with a beta heather, Tenormin 25 b.i.d., start him on Eliquis. Stop the aspirin and put him on oral Cardizem and stop the IV Cardizem. I reviewed echo findings. The patient will need a WALLY cardioversion after adequate anticoagulation, but I am going to wait until the bronchitis issues improve. BHARATL / IJN: [id number] /
--- NOTE | 2019-08-04 11:35 | CT ---
EXAMINATION TYPE: CT chest angio for PE DATE OF EXAM: 08/04/2019 COMPARISON: None. HISTORY: SOB CT DLP: 1084.8 mGycm Automated exposure control for dose reduction was used. CONTRAST: CT Chest for pulmonary embolism performed with with IV Contrast, patient injected with 100 mL of Isov ue 370. FINDINGS: The lungs are clear. There is no significant axillary, mediastinal or hilar adenopathy. The contrast bolus is suboptimal. There are no large, central pulmonary emboli. Aortic root is mildly prominent measuring 3.8 cm. The proximal arch is ectatic measuring 3 cm. The re mainder the aorta is normal in caliber without evidence of dissection. There is no pleural or pericardial fluid. The heart is mildly enlarged. There are 2 areas of increased density within the left kidney. This appears to dense to represent con trast and I suspect 2 nonobstructing left renal stones. The largest measures 5.5 mm in the anterior p ole calyx of the left kidney. There is degenerative disc disease and hypertrophic spondylosis within the spine. IMPRESSION: 1. SUBOPTIMAL EXAMINATION SHOWING NO DEFINITE EVIDENCE OF PULMONARY EMBOLUS. 2. MILD PROMINENCE OF THE AORTIC ROOT AND PROXIMAL ARCH. 3. MILD CARDIOMEGALY. 4. NONOBSTRUCTING LEFT-SIDED NEPHROLITHIASIS.
[2019-08-04 11:39] LABS: Glucose,Whole Blood 206 mg/dL (75-99)
--- NOTE | 2019-08-04 11:48 | P.PN ---
Subjective This is a pleasant 59 years old male with past medical history of hypertension, hyperlipidemia, osteoarthritis, supraventricular tachycardia. 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 Beckwith for atrial flutter, he follows up with Dr. Beckwith for chronic cough with plan for him to get bronchoscopy as per ED physician, however patient states that since March his been having cough with phlegm and his been following up with his PCP Dr. Mcgovern who tried him several antibiotics the last antibiotic which was fourth one was doxycycline given to the patient as long as prednisone taper with no much benefit, so Dr. Sullivan refer him to Dr. Beckwith, in the office is attended breathing treatment and EKG when they found arrhythmia they send him to emergency room. On admission he has low-grade temperature of 100.1, blood pressure 101/62, heart rate is 101, saturating 99% and 2 L oxygen. Labs show WBC of 18.7 K, INR and BMP is unremarkable. Liver enzymes not elevated and troponin less than 0.012. Urinalysis no suspicious of infection. Chest x-ray: No acute process. EKG showed atrial flutter with variable AV block at a rate of 107 and QTC 427. In the emergency room patient was given aspirin a started on Cardizem drip. He denies smoking, alcohol or illicit drug. He had seen Dr. Sheriff about 3 years ago when he had negative stress test 2 08/04/2019 Patient is alert awake and oriented. His only problem is coughing which is improving with medicine. However patient is developing fever of 101.7. His WBCs 12.3 K, rest of BMP is unremarkable. CTA of the chest: No PE, and lungs are clear. An obstructing left kidney stone echocardiogram ejection fraction 55-60% with severe LVH Heparin drip and Cardizem drip was stopped. Cereal Supervisor put the patient on [place] 25 mg twice daily, oral Cardizem and Eliquis for anticoagulation, while stopping the aspirin. With a recommendation for follow-up as an outpatient for a WALLY cardioversion WE Are going to consult infectious disease for fever of unknown origin , possible tracheobronchitis. Pulmonary input is appreciated Review of Systems CONSTITUTIONAL: No fever, no malaise, no fatigue. HEENT: No recent visual problems or hearing problems. Denied any sore throat. CARDIOVASCULAR: No orthopnea, PND, no palpitations, no syncope. PULMONARY: No shortness of breath, no hemoptysis. GASTROINTESTINAL: No diarrhea, no nausea, no vomiting, no abdominal pain. Normoactive bowel sounds. NEUROLOGICAL: No headaches, no weakness, no numbness. HEMATOLOGICAL: Denies any bleeding or petechiae. GENITOURINARY: Denies any burning micturition, frequency, or urgency. MUSCULOSKELETAL/RHEUMATOLOGICAL: Denies any joint pain, swelling, or any muscle pain. ENDOCRINE: Denies any polyuria or polydipsia. Active Medications Generic Name Dose Route Start Last Admin Trade Name Freq PRN Reason Stop Dose Admin Apixaban 5 mg 08/04/19 09:45 08/04/19 10:46 Eliquis PO 5 mg BID LILIANA Administration Aspirin 325 mg 08/04/19 09:00 08/04/19 10:46 Aspirin PO 325 mg DAILY LILIANA Administration Atenolol 25 mg 08/04/19 10:00 08/04/19 10:55 Tenormin PO 25 mg BID LILIANA Administration Diltiazem HCl 30 mg 08/04/19 10:00 08/04/19 10:46 Cardizem Oral PO 30 mg TID LILIANA Administration Guaifenesin/Dextromethorphan 10 ml 08/03/19 20:00 08/04/19 05:38 Robitussin Dm PO 10 ml Q8H LILIANA Administration Ceftriaxone Sodium 1 gm/ 50 mls @ 100 mls/hr 08/03/19 16:45 08/04/19 10:46 Sodium Chloride IVPB 100 mls/hr DAILY LILIANA Administration Azithromycin 500 mg/ Sodium 250 mls @ 250 mls/hr 08/04/19 16:00 Chloride IVPB DAILY@1600 LILIANA Sodium Chloride 1,000 mls @ 5 mls/hr 08/03/19 19:45 08/04/19 10:49 Saline 0.9% IV 5 mls/hr .Q24H LILIANA Administration Insulin Aspart 0 unit 08/04/19 07:30 08/04/19 06:25 Novolog SQ 3 unit ACHS LILIANA Administration Protocol Methylprednisolone Sodium Succinate 60 mg 08/04/19 12:00 Solu-Medrol IV Q6HR LILIANA Nitroglycerin 0.4 mg 08/03/19 16:16 Nitrostat SUBLINGUAL Q5M PRN Chest Pain Sodium Chloride 10 ml 08/03/19 21:00 06/27/20 10:47 Saline Flush IV 10 ml BID LILIANA Administration Objective - Vital Signs Vital signs: Vital Signs Temp 100.2 F H 08/04/19 04:00 Pulse 103 H 08/04/19 04:00 Resp 16 08/04/19 04:00 BP 147/68 08/04/19 04:00 Pulse Ox 97 08/04/19 04:00 Intake & Output 08/03/19 08/04/19 08/04/19 18:59 06:59 18:59 Intake Total 701.582 Output Total 700 Balance 1.582 Weight 141.521 kg 141.6 kg Intake: Intake, IV Titration 701.582 Amount Diltiazem 125 mg In 40 Sodium Chloride 0.9% 100 ml @ 5 MG/HR 5 mls/hr IV .Q24H L[facility]IANA Rx#:[id number] Heparin Sod,Pork in 0.45% 61.582 NaCl 25,000 unit In 0.45 % NaCl 1 250ml.bag @ 7 UNITS/KG/HR 9.906 mls/hr IV .Q24H [facility]NA Rx#: [id number] Sodium Chloride 0.9% 1, 600 000 ml @ 75 mls/hr IV . [id number] [facility] Rx#:[id number] Output: Urine 700 Other: Voiding Method Urinal # Voids 1 - Exam GENERAL: The patient is alert and oriented x3, not in any acute distress. obese HEENT: Pupils are round and equally reacting to light. EOMI. No scleral icterus. No conjunctival pallor. Normocephalic, atraumatic. No pharyngeal erythema. No thyromegaly. CARDIOVASCULAR: S1 and S2 present. No murmurs, rubs, or gallops. PULMONARY: Chest is clear to auscultation, no wheezing or crackles. ABDOMEN: Soft, nontender, nondistended, normoactive bowel sounds. No palpable organomegaly. MUSCULOSKELETAL: No joint swelling or deformity. EXTREMITIES: No cyanosis, clubbing, or pedal edema. NEUROLOGICAL: Gross neurological examination did not reveal any focal deficits. SKIN: No rashes. no petechiae. - Labs CBC & Chem 7: 08/04/19 07:24 08/04/19 07:24 Labs: Abnormal Lab Results - Last 24 Hours (Table) 08/03/19 08/03/19 08/03/19 Range/Units 14:40 14:40 15:14 WBC 18.7 H (3.8-10.6) k/uL Plt Count (150-450) k/uL Neutrophils # 16.3 H (1.3-7.7) k/uL Monocytes # 1.1 H (0-1.0) k/uL APTT (22.0-30.0) sec Sodium 136 L (137-145) mmol/L Glucose 204 H (74-99) mg/dL POC Glucose (mg/dL) (75-99) mg/dL Ur Leukocyte Esterase Trace H (Negative) Urine WBC 15 H (0-5) /hpf Amorphous Sediment Rare H (None) /hpf Urine Bacteria Rare H (None) /hpf Urine Mucus Rare H (None) /hpf 08/03/19 08/04/19 08/04/19 Range/Units 21:36 06:19 07:24 WBC 12.3 H (3.8-10.6) k/uL Plt Count 148 L (150-450) k/uL Neutrophils # 9.5 H (1.3-7.7) k/uL Monocytes # (0-1.0) k/uL APTT (22.0-30.0) sec Sodium (137-145) mmol/L Glucose (74-99) mg/dL POC Glucose (mg/dL) 199 H 180 H (75-99) mg/dL Ur Leukocyte Esterase (Negative) Urine WBC (0-5) /hpf Amorphous Sediment (None) /hpf Urine Bacteria (None) /hpf Urine Mucus (None) /hpf 08/04/19 08/04/19 Range/Units 07:24 07:24 WBC (3.8-10.6) k/uL Plt Count (150-450) k/uL Neutrophils # (1.3-7.7) k/uL Monocytes # (0-1.0) k/uL APTT 33.6 H (22.0-30.0) sec Sodium 134 L (137-145) mmol/L Glucose 155 H (74-99) mg/dL POC Glucose (mg/dL) (75-99) mg/dL Ur Leukocyte Esterase (Negative) Urine WBC (0-5) /hpf Amorphous Sediment (None) /hpf Urine Bacteria (None) /hpf Urine Mucus (None) /hpf Assessment and Plan Assessment: Atrial flutter With variable black Possible acute tracheobronchitis , versus other site infection Sepsis with systemic inflammatory response with fever, leukocytosis and tachycardia Hypertension Hyperlipidemia Osteoarthritis morbid obesity Plan: This is a pleasant 59 years old male who presents with sepsis, unknown source of infection. With atrial flutter. Continue with Tenormin, oral Cardizem Maru Eliq uis. Continue with antibiotics per ID team Patient is found closely by cardiology and pulmonary. Consult infectious disease Labs and medication were reviewed.. Continue same treatment. Continue with symptomatic treatment. Resume home medication. Monitor lytes and vitals. DVT and GI prophylaxis. Further recommendations of the clinical course of the patient DVT prophylaxis: heparin GI Prophylaxis: Pepcid
[2019-08-04] MEDS: methylPREDNISolone SOD SUCCI 125 MG/2 ML VIAL IV SCH ×3 (12:46→22:52)
--- NOTE | 2019-08-04 13:58 | P.CNPUL ---
History of Present Illness Consult date: 08/04/19 Requesting physician: Mauri Yoo Reason for consult: dyspnea Chief complaint: Shortness of breath, chronic cough History of present illness: This a very pleasant 59-year-old gentleman follows with Dr. Sullivan as his primary care provider. He has a history of hypertension, gastroesophageal r eflux disease, hyper lipidemia, morbid obesity, type 2 diabetes mellitus. He was seen yesterday in our office by Dr. Beckwith for complaints of chronic cough and shortness of breath. He was breathing a significant purulent sputum and bronchoscopy was being considered. His spirometry was essentially normal. EKG did reveal atrial fibrillation with a rapid ventricular response and he was subsequent sent to the emergency room for further evaluation. He was still in atrial fibrillation with a rapid ventricular response. He was initiated on a Cardizem drip and a heparin drip. Chest x-ray revealed no acute process. Echocardiogram received field severe left ventricular hypertrophy. Left ventri cular systolic function was preserved at 55-60%. CT angiogram revealed no definite pulmonary embolism. Mild prominence aortic root and proximal arch. Mild cardiomegaly. Nonobstructive left-sided nephrolithiasis. He is seen today in consultation on the selective care unit. Awake and alert in no acute distress. He is maintaining good O2 saturations in the 90s on 2 L/m per nasal cannula. He is febrile with a temperature 100.2. T-max of 101.7. Still tachycardic. Remains in atrial flutter. White count 12.3. Hemoglobin 14.4. Sodium 134. Potassium 4.4. Creatinine 0.86. Flowers virus not detected. He remains on ceftriaxone and azithromycin. Cardizem drip discontinued. On oral Cardizem and atenolol. Transitioned from IV heparin to Eliquis. Review of Systems REVIEW OF SYSTEMS: CONSTITUTIONAL: Denies any recent significant weight loss or weight gain. EYES: Denies change in vision. EARS, NOSE, MOUTH, THROAT: Denies headaches, denies sore throat. CARDIOVASCULAR: Denies chest pain, palpitations or syncopal episodes. RESPIRATORY: Positive for shortness of breath, cough, congestion no hemoptysis. GASTROINTESTINAL: Denies change in appetite, denies abdominal pain GENITOURINARY: Denies hematuria, denies infections. MUSKULOSKELETAL: Denies pain, denies swelling. INTEGUMENTARY: Denies rash, denies eczema. NEUROLOGICAL: Denies recent memory loss, no recent seizure activity. PSYCHIATRIC: Denies anxiety, denies depression. HEMATOLOGIC/LYMPHATIC: Denies anemia, denies enlarged lymph nodes. Past Medical History Past Medical History: Hyperlipidemia, Hypertension, Osteoarthritis (OA), Supraventricular Tachycardia (SVT) Additional Past Medical History / Comment(s): KIDNEY STONES History of Any Multi-Drug Resistant Organisms: None Reported Past Surgical History: No Surgical Hx Reported Additional Past Surgical History / Comment(s): WISDOM TEETH EXTRACTIONS Past Anesthesia/Blood Transfusion Reactions: No Reported Reaction Past Psychological History: No Psychological Hx Reported Smoking Status: Former smoker Past Alcohol Use History: None Reported Additional Past Alcohol Use History / Comment(s): STARTED SMOKING AGE 18 QUIT AT AGE 24 SMOKED 2-3 CIG PER DAY Past Drug Use History: None Reported - Past Family History Mother Family Medical History: Diabetes Mellitus Father Family Medical History: Coronary Artery Disease (CAD) Medications and Allergies Home Medications Medication Instructions Recorded Confirmed Type Aspirin [Adult Low Dose Aspirin EC] 81 mg PO BID 06/28/16 08/03/19 History Atenolol [Tenormin] 25 mg PO BID 06/28/16 08/03/19 History Glucosam/Aman-Msm1/C/Steven/Bosw 1 tab PO BID 06/28/16 08/03/19 History [Glucosamine-Chondroitin Tablet] Lisinopril-Hctz 10-12.5 mg 1 tab PO DAILY 06/28/16 08/03/19 History [Zestoretic 10-12.5] amLODIPine [Norvasc] 5 mg PO HS 06/28/16 08/03/19 History Albuterol Sulfate [Ventolin HFA] 2 puff INHALATION RT-Q4H PRN 08/03/19 08/03/19 History Atorvastatin Calcium [Lipitor] 20 mg PO HS 08/03/19 08/03/19 History metFORMIN HCL [Glucophage] 100 mg PO AC-BID 08/03/19 08/03/19 History predniSONE See Taper PO DAILY 08/03/19 08/03/19 History Allergies Allergy/AdvReac Type Severity Reaction Status Date / Time No Known Allergies Allergy Verified 08/03/19 14:19 Physical Exam Vitals: Vital Signs Temp Pulse Pulse Resp BP BP Pulse Ox 08/04/19 04:00 100.2 F H 103 H 16 147/68 97 08/04/19 03:49 90 18 08/03/19 23:31 84 18 08/03/19 23:29 101.7 F H 84 18 137/70 99 08/03/19 22:04 99.7 F H 77 18 119/92 100 08/03/19 20:42 99.2 F 77 20 109/59 99 08/03/19 20:00 74 20 107/64 98 08/03/19 19:00 85 20 113/65 99 08/03/19 18:00 82 20 113/67 99 08/03/19 17:30 89 20 100/56 98 08/03/19 16:58 99.2 F 99 20 105/56 97 08/03/19 16:00 101 H 20 101/62 99 08/03/19 15:51 92 08/03/19 15:30 99 20 108/64 96 08/03/19 14:16 100.1 F H 105 H 16 125/70 95 Intake and Output 08/03/19 08/04/19 08/04/19 22:59 06:59 14:59 Intake Total 701.582 Output Total 700 Balance 1.582 Intake: Intake, IV Titration 701.582 Amount Diltiazem 125 mg In 40 Sodium Chloride 0.9% 100 ml @ 5 MG/HR 5 mls/hr IV .Q24H [facility] Rx#:[id number] Heparin Sod,Pork in 0.45% 61.582 NaCl 25,000 unit In 0.45 % NaCl 1 250ml.bag @ 7 UNITS/KG/HR 9.906 mls/hr IV .Q24H LILIANA Rx#: [id number] Sodium Chloride 0.9% 1, 600 000 ml @ 75 mls/hr IV . [id number] LILIANA Rx#:[id number] Output: Urine 700 Other: Voiding Method Urinal # Voids 1 Weight 141.521 kg 141.6 kg GENERAL EXAM: Alert, very pleasant 59-year-old gentleman, on 2 L nasal cannula, comfortable in no apparent distress. HEAD: Normocephalic. EYES: Normal reaction of pupils, equal size. NOSE: Clear with pink turbinates. THROAT: No erythema or exudates. NECK: No masses, no JVD. CHEST: No chest wall deformity. LUNGS: Equal air entry with few scattered rhonchi. CVS: S1 and S2 normal with no audible murmur, irregular rhythm. ABDOMEN: No hepatosplenomegaly, normal bowel sounds, no guarding or rigidity. SPINE: No scoliosis or deformity SKIN: No rashes CENTRAL NERVOUS SYSTEM: No focal deficits, tone is normal in all 4 extremities. EXTREMITIES: There is no peripheral edema. No clubbing, no cyanosis. Peripheral pulses are intact. Results - Laboratory Findings CBC and BMP: 08/04/19 07:24 08/04/19 07:24 PT/INR, D-dimer PT 9.8 sec (9.0-12.0) 08/03/19 14:40 INR 0.9 (<1.2) 08/03/19 14:40 Abnormal lab findings: Abnormal Labs 08/03/19 08/03/19 08/03/19 14:40 14:40 15:14 WBC 18.7 H Plt Count Neutrophils # 16.3 H Monocytes # 1.1 H APTT Sodium 136 L Glucose 204 H POC Glucose (mg/dL) Ur Leukocyte Esterase Trace H Urine WBC 15 H Amorphous Sediment Rare H Urine Bacteria Rare H Urine Mucus Rare H 08/03/19 08/04/19 08/04/19 21:36 06:19 07:24 WBC 12.3 H Plt Count 148 L Neutrophils # 9.5 H Monocytes # APTT Sodium Glucose POC Glucose (mg/dL) 199 H 180 H Ur Leukocyte Esterase Urine WBC Amorphous Sediment Urine Bacteria Urine Mucus 08/04/19 08/04/19 08/04/19 07:24 07:24 11:37 WBC Plt Count Neutrophils # Monocytes # APTT 33.6 H Sodium 134 L Glucose 155 H POC Glucose (mg/dL) 206 H Ur Leukocyte Esterase Urine WBC Amorphous Sediment Urine Bacteria Urine Mucus - Diagnostic Findings Chest x-ray: image reviewed CT scan - chest: image reviewed Assessment and Plan Assessment: 1 Shortness of breath, cough congestion suspect secondary to acute purulent tracheobronchitis. Pulmonary emboli ruled out. 2 Febrile illness secondary to above 3 New onset atrial fibrillation with rapid ventricular response 4 Obesity 5 Diabetes mellitus 6 Hypertension. 7 Hyperlipidemia. Plan: The patient was seen and evaluated by Dr. Bergeron Chest x-ray, computed tomography scan, echocardiogram and labs reviewed Computed tomography scan of the chest ruled out PE Continue antibiotics for now Add IV Solu-Medrol Add Humalog sliding scale Transitioned to Eliquis Continued on Cardizem and beta blockers Plan is for WALLY and cardioversion after adequate anticoagulation We will continue to follow and make further recommendations based on his clinical status I, the cosigning physician, performed a history & physical examination of the patient. Lungs sounds with bilateral scattered rhonchi. Maintaining good O2 saturations in the 90s on 2 L/m per nasal cannula. I discussed the assessment and plan of care with my nurse practitioner, Kelsi Sharif. I attest to the above consultation as dictated by her. Time with Patient: Greater than 30
[2019-08-04 16:40] LABS: Glucose,Whole Blood 277 mg/dL (75-99)
[2019-08-04] MEDS: AZITHROMYCIN 500 MG in SODIUM CHLORIDE 0.9% 250 ML IVPB SCH (16:49)
[2019-08-04 19:47] LABS: Glucose,Whole Blood 352 mg/dL (75-99)
[2019-08-04] MEDS: HEPARIN SODIUM,PORCINE 5,000 UNIT/ML 1 ML VIAL SQ SCH (19:53)
--- NOTE | 2019-08-05 00:53 | P.CONS ---
History of Present Illness - Reason for Consult Consult date: 08/04/19 FUO and possible tracheal bronchitis Requesting physician: Mauri E Sheet - Chief Complaint Abnormal heart rate and cough few weeks - History of Present Illness Patient is a 59-year-old male who was sent to the ER after the patient was noticed to have atrial fibrillation on EKG taken by the primary care physician, patient also complaining of problem with cough and sputum production going on for months now and has been treated with 4 different courses of antib iotics including Zithromax doxycycline and steroids patient mentioned he did have some improvement with his cough. His antibiotic course but not complete resolution, patient complaining of cough which has been moderate in intensity and is living of sputum has been from yellow to green but no hemoptysis denies any pleuritic chest pain denies having headache or URI symptoms no nausea no vomiting no abdominal pain had no diarrhea patient on arrival to the area did have relief 100.1 and did have elevated white count 18,000 subsequently the patient did spike a fever of 101F patient did have a CT angiogram that was suboptimal however lungs and is working patient has been negative patient has been treated with Rocephin and Zithromax infectious disease was consulted for concern for fever of unknown source, patient currently do not have any rash no joint swelling and no other symptoms and decided to split his symptoms as mentioned above Review of Systems Positive point has been mentioned in the HPI rest of the systems are negative Past Medical History Past Medical History: Hyperlipidemia, Hypertension, Osteoarthritis (OA), Supraventricular Tachycardia (SVT) Additional Past Medical History / Comment(s): KIDNEY STONES History of Any Multi-Drug Resistant Organisms: None Reported Past Surgical History: No Surgical Hx Reported Additional Past Surgical History / Comment(s): WISDOM TEETH EXTRACTIONS Past Anesthesia/Blood Transfusion Reactions: No Reported Reaction Past Psychological History: No Psychological Hx Reported Smoking Status: Former smoker Past Alcohol Use History: None Reported Additional Past Alcohol Use History / Comment(s): STARTED SMOKING AGE 18 QUIT AT AGE 24 SMOKED 2-3 CIG PER DAY Past Drug Use History: None Reported - Past Family History Mother Family Medical History: Diabetes Mellitus Father Family Medical History: Coronary Artery Disease (CAD) Medications and Allergies Home Medications Medication Instructions Recorded Confirmed Type Aspirin [Adult Low Dose Aspirin EC] 81 mg PO BID 06/28/16 08/03/19 History Atenolol [Tenormin] 25 mg PO BID 06/28/16 08/03/19 History Glucosam/Aman-Msm1/C/Steven/Bosw 1 tab PO BID 06/28/16 08/03/19 History [Glucosamine-Chondroitin Tablet] Lisinopril-Hctz 10-12.5 mg 1 tab PO DAILY 06/28/16 08/03/19 History [Zestoretic 10-12.5] amLODIPine [Norvasc] 5 mg PO HS 06/28/16 08/03/19 History Albuterol Sulfate [Ventolin HFA] 2 puff INHALATION RT-Q4H PRN 08/03/19 08/03/19 History Atorvastatin Calcium [Lipitor] 20 mg PO HS 08/03/19 08/03/19 History metFORMIN HCL [Glucophage] 100 mg PO AC-BID 08/03/19 08/03/19 History predniSONE See Taper PO DAILY 08/03/19 08/03/19 History Allergies Allergy/AdvReac Type Severity Reaction Status Date / Time No Known Allergies Allergy Verified 08/03/19 14:19 Physical Exam Vitals: Vital Signs Temp Pulse Resp BP Pulse Ox 08/04/19 23:03 74 16 08/04/19 23:02 97.5 F L 74 16 119/79 94 L 08/04/19 19:49 65 18 08/04/19 19:48 98.1 F 65 18 118/70 94 L 08/04/19 16:00 98 F 70 19 99/72 93 L 08/04/19 12:30 73 18 138/70 93 L 08/04/19 04:00 100.2 F H 103 H 16 147/68 97 08/04/19 03:49 90 18 Intake and Output 08/04/19 08/04/19 08/05/19 14:59 22:59 06:59 Intake Total 50 580 10 Output Total 400 Balance 50 180 10 Intake: IV 10 Invasive Line 1 10 Intake, IV Titration 50 40 Amount Sodium Chloride 0.9% 1, 40 000 ml @ 5 mls/hr IV . Q24H LILIANA Rx#:[id number] cefTRIAXone 1 gm In 50 Sodium Chloride 0.9% 50 ml @ 100 mls/hr IVPB DAILY [facility] Rx#:[id number] Oral 540 Output: Urine 400 Other: Voiding Method Urinal Urinal Urinal # Voids 2 GENERAL DESCRIPTION: Middle-aged male lying in bed, no distress. No tachypnea or accessory muscle of respiration use. HEENT: Shows Pallor , no scleral icterus. Oral mucous membrane is dry. No pharyngeal erythema or thrush NECK: Trachea central, no thyromegaly. LUNGS: Unlabored breathing. Decreased intensity of breath sounds No wheeze or crackle. HEART: S1, S2, regular rate and rhythm. No loud murmur ABDOMEN: Soft, no tenderness , guarding or rigidity, no organomegaly EXTREMITIES: No edema of feet. SKIN: No rash, no masses palpable. NEUROLOGICAL: The patient is awake, alert, oriented x3, mood and affect normal. Results CBC & Chem 7: 08/04/19 07:24 08/04/19 07:24 Labs: Abnormal Lab Results - Last 24 Hours (Table) 08/04/19 08/04/19 08/04/19 Range/Units 06:19 07:24 07:24 WBC 12.3 H (3.8-10.6) k/uL Plt Count 148 L (150-450) k/uL Neutrophils # 9.5 H (1.3-7.7) k/uL APTT (22.0-30.0) sec Sodium 134 L (137-145) mmol/L Glucose 155 H (74-99) mg/dL POC Glucose (mg/dL) 180 H (75-99) mg/dL Procalcitonin (0.02-0.09) ng/mL 08/04/19 08/04/19 08/04/19 Range/Units 07:24 07:24 11:37 WBC (3.8-10.6) k/uL Plt Count (150-450) k/uL Neutrophils # (1.3-7.7) k/uL APTT 33.6 H (22.0-30.0) sec Sodium (137-145) mmol/L Glucose (74-99) mg/dL POC Glucose (mg/dL) 206 H (75-99) mg/dL Procalcitonin 0.10 H (0.02-0.09) ng/mL 08/04/19 08/04/19 Range/Units 16:39 19:43 WBC (3.8-10.6) k/uL Plt Count (150-450) k/uL Neutrophils # (1.3-7.7) k/uL APTT (22.0-30.0) sec Sodium (137-145) mmol/L Glucose (74-99) mg/dL POC Glucose (mg/dL) 277 H 352 H (75-99) mg/dL Procalcitonin (0.02-0.09) ng/mL Microbiology - Last 24 Hours (Table) 08/03/19 15:15 Blood Culture - Preliminary Blood No Growth after 24 hours Assessment and Plan Assessment: 1- patient admitted to hospital with new onset afibrillation in this patient also noticed to be febrile at predominantly did have respiratory symptoms of cough with purulent sputum though CT angiogram did not show any evidence of cons olidation concerning likely for a purulent tracheal bronchitis in this patient has failed outpatient oral antibiotic therapy and currently with no other obvious focus of infection patient UA is negative abdominal soft on clinical examination and no evidence of any cellulitis or joint swelling (1) Tracheobronchitis Current Visit: Yes Status: Acute Code(s): J40 - BRONCHITIS, NOT SPECIFIED ACUTE OR CHRONIC SNOMED Code(s): 77004087 (2) Fever Current Visit: Yes Status: Acute Code(s): R50.9 - FEVER, UNSPECIFIED SNOMED Code(s): 248952843 Plan: 1-obtain sputum for Gram stain and culture 2-Rocephin 1 g daily and Zithromax to continue We will follow on clinical condition and cultures to further adjust medication if needed Thank you for this consultation will follow this patient with you Time with Patient: Greater than 30
[2019-08-05 06:29] LABS: Glucose,Whole Blood 243 mg/dL (75-99)
[2019-08-05] MEDS: INSULIN ASPART (NovoLOG) 100 UNIT/ML VIAL SQ SCH ×4 (06:34→20:45)
[2019-08-05] MEDS: methylPREDNISolone SOD SUCCI 125 MG/2 ML VIAL IV SCH ×4 (06:34→23:17)
[2019-08-05] MEDS: guaiFENesin-DM 100-10MG/5ML 10 ML CUP PO SCH ×3 (06:34→20:45)
[2019-08-05 06:52] LABS: African American GFR (CKD) >90 (>60 ml/min/1.73 sqM); Anion Gap 8 mmol/L; Blood Urea Nitrogen 18 mg/dL (9-20); Carbon Dioxide 26 mmol/L (22-30); Chloride 102 mmol/L (98-107); Glucose 260 mg/dL (74-99); Non-African American GFR(CKD) >90 (>60 ml/min/1.73 sqM); Potassium 5.2 mmol/L (3.5-5.1); Sodium 136 mmol/L (137-145)
[2019-08-05 07:08] LABS: Basophils % (A) 0 %; Eosinophils % (A) 1 %; HCT 47.6 % (39.0-53.0); HGB 16.1 gm/dL (13.0-17.5); Lymphocytes # (A) 0.9 k/uL (1.0-4.8); Lymphocytes % (A) 9 %; MCH 31.8 pg (25.0-35.0); MCHC 33.8 g/dL (31.0-37.0); MCV 94.1 fL (80.0-100.0); Mean Platelet Volume 7.9; Monocytes # (A) 0.2 k/uL (0-1.0); Monocytes % (A) 2 %; Neutrophils # (A) 8.1 k/uL (1.3-7.7); Neutrophils % (A) 88 %; Platelet Count 134 k/uL (150-450); RBC 5.05 m/uL (4.30-5.90); RDW 13.7 % (11.5-15.5); WBC 9.2 k/uL (3.8-10.6)
[2019-08-05] MEDS: HEPARIN SODIUM,PORCINE 5,000 UNIT/ML 1 ML VIAL SQ SCH ×2 (08:37→20:46)
[2019-08-05] MEDS: ASPIRIN 325 MG TAB PO SCH (08:47)
[2019-08-05] MEDS: APIXABAN 5 MG TAB PO SCH ×2 (08:48→20:45)
[2019-08-05] MEDS: ATENOLOL 25 MG TAB PO SCH ×2 (08:48→20:45)
[2019-08-05] MEDS: DILTIAZEM ORAL 30 MG TAB PO SCH ×3 (08:48→20:45)
[2019-08-05 11:38] LABS: Glucose,Whole Blood 338 mg/dL (75-99)
--- NOTE | 2019-08-05 11:41 | P.PN ---
Subjective Progress Note Date: 08/05/19 This 59-year-old man patient was sitting consultation yesterday. He was told to have an acute bronchospastic reaction/acute bronchitis with secondary bronchospasm wheezing following a respiratory tract infection. The patient had a CAT scan of the chest that showed no acute abnormalities. He was started on IV Solu-Medrol and is improved significantly on today's evaluation. His cough has subsided. He remains in atrial fibrillation/flutter. The rates under control. The patient is on anticoagulants. He is on oral atenolol 25 mg twice a day and Cardizem 30 mg by mouth 3 times a day. He remains on a combination of IV Rocephin and Zithromax. He will likely need also long-term and to coagulation the patient was started on Eliquis 5 mg by mouth twice a day. No new complaints otherwise for now. I opted to give him another 24 hours of IV Solu-Medrol as the patient is improved significantly. Objective - Vital Signs Vital signs: Vital Signs Temp 98.7 F 08/05/19 08:30 Pulse 72 08/05/19 08:30 Resp 18 08/05/19 08:30 BP 128/83 08/05/19 08:30 Pulse Ox 94 L 08/05/19 08:30 Intake & Output 08/04/19 08/05/19 08/05/19 18:59 06:59 18:59 Intake Total 290 390 240 Output Total 1025 Balance 290 -635 240 Weight 138.3 kg Intake: IV 10 Invasive Line 1 10 Intake, IV Titration 50 80 Amount Sodium Chloride 0.9% 1, 80 000 ml @ 5 mls/hr IV . Q24H [facility] Rx#:[id number] cefTRIAXone 1 gm In 50 Sodium Chloride 0.9% 50 ml @ 100 mls/hr IVPB DAILY [facility] Rx#:[id number] Oral 240 300 240 Output: Urine 1025 Other: Voiding Method Urinal Urinal # Voids 1 - Exam GENERAL EXAM: Alert, very pleasant 59-year-old gentleman, on room air HEAD: Normocephalic. EYES: Normal reaction of pupils, equal size. NOSE: Clear with pink turbinates. THROAT: No erythema or exudates. NECK: No masses, no JVD. CHEST: No chest wall deformity. LUNGS: Equal air entry with few scattered rhonchi. CVS: S1 and S2 normal with no audible murmur, irregular rhythm. ABDOMEN: No hepatosplenomegaly, normal bowel sounds, no guarding or rigidity. SPINE: No scoliosis or deformity SKIN: No rashes CENTRAL NERVOUS SYSTEM: No focal deficits, tone is normal in all 4 extremities. EXTREMITIES: There is no peripheral edema. No clubbing, no cyanosis. Peripheral pulses are intact. - Labs CBC & Chem 7: 08/05/19 06:08/05/19 06:20 Labs: Abnormal Lab Results - Last 24 Hours (Table) 08/04/19 08/04/19 08/04/19 Range/Units 07:24 11:37 16:39 Plt Count (150-450) k/uL Neutrophils # (1.3-7.7) k/uL Lymphocytes # (1.0-4.8) k/uL Sodium (137-145) mmol/L Potassium (3.5-5.1) mmol/L Glucose (74-99) mg/dL POC Glucose (mg/dL) 206 H 277 H (75-99) mg/dL Procalcitonin 0.10 H (0.02-0.09) ng/mL 08/04/19 08/05/19 08/05/19 Range/Units 19:43 06:20 06:20 Plt Count 134 L (150-450) k/uL Neutrophils # 8.1 H (1.3-7.7) k/uL Lymphocytes # 0.9 L (1.0-4.8) k/uL Sodium 136 L (137-145) mmol/L Potassium 5.2 H (3.5-5.1) mmol/L Glucose 260 H (74-99) mg/dL POC Glucose (mg/dL) 352 H (75-99) mg/dL Procalcitonin (0.02-0.09) ng/mL 08/05/19 Range/Units 06:27 Plt Count (150-450) k/uL Neutrophils # (1.3-7.7) k/uL Lymphocytes # (1.0-4.8) k/uL Sodium (137-145) mmol/L Potassium (3.5-5.1) mmol/L Glucose (74-99) mg/dL POC Glucose (mg/dL) 243 H (75-99) mg/dL Procalcitonin (0.02-0.09) ng/mL Microbiology - Last 24 Hours (Table) 08/03/19 15:15 Blood Culture - Preliminary Blood No Growth after 24 hours Assessment and Plan Plan: 1 Shortness of breath, cough congestion suspect secondary to acute purulent tracheobronchitis. Pulmonary emboli ruled out. The patient has an asthmatic or an Azmacort febrile reaction post tracheal bronchitis. No pneumonia. Improving with systemic steroids. CAT scan of the chest was negative. 2 Febrile illness secondary to above, recovered 3 New onset atrial fibrillation with rapid ventricular response, stable 4 Obesity 5 Diabetes mellitus 6 Hypertension. 7 Hyperlipidemia. Plan Continue IV Solu Medrol for another 24 hours Start prednisone burst taper as of tomorrow Cardiology to manage the cardiac medication for rate control in regards to his atrial fibrillation/flutter Eliquis 5 mg by mouth twice a day CAT scan of the chest was noted Echo was noted We'll continue to follow
--- NOTE | 2019-08-05 12:22 | P.PN ---
Subjective This is a pleasant 59 years old male with past medical history of hypertension, hyperlipidemia, osteoarthritis, supraventricular tachycardia. He was sent by his sales associate fishing Dr. Beckwith for atrial flutter, he follows up with Dr. Beckwith for chronic cough with plan for him to get bronchoscopy as per ED physician, however patient states that since March his been having cough with phlegm and his been following up with his PCP Dr. Mcgovern who tried him several antibiotics the last antibiotic which was fourth one was doxycycline given to the patient as long as prednisone taper with no much benefit, so Dr. Sullivan refer him to Dr. Beckwith, in the office is attended breathing treatment and EKG when they found arrhythmia they send him to emergency room. On admission he has low-grade temperature of 100.1, blood pressure 101/62, heart rate is 101, saturating 99% and 2 L oxygen. Labs show WBC of 18.7 K, INR and BMP is unremarkable. Liver enzymes not elevated and troponin less than 0.012. Urinalysis no suspicious of infection. Chest x-ray: No acute process. EKG showed atrial flutter with variable AV block at a rate of 107 and QTC 427. In the emergency room patient was given aspirin a started on Cardizem drip. He denies smoking, alcohol or illicit drug. He had seen Dr. Sheriff about 3 years ago when he had negative stress test 2 08/04/2019 Patient is alert awake and oriented. His only problem is coughing which is improving with medicine. However patient is developing fever of 101.7. His WBCs 12.3 K, rest of BMP is unremarkable. CTA of the chest: No PE, and lungs are clear. An obstructing left kidney stone echocardiogram ejection fraction 55-60% with severe LVH Heparin drip and Cardizem drip was stopped. Document Reviewer put the patient on [place] 25 mg twice daily, oral Cardizem and Eliquis for anticoagulation, while stopping the aspirin. With a recommendation for follow-up as an outpatient for a WALLY cardioversion WE Are going to consult infectious disease for fever of unknown origin , possible tracheobronchitis. Pulmonary input is appreciated 08/05/2019 Patient feels better, is coughing and phlegm production is easing down and improving. No dyspnea or chest pain. No other issue or complaints. Vitals and labs look stable, potassium 5.2, sodium 136, creatinine is normal. Sugar still on the high side about 240-340 mostly due to the steroid effect CT of the chest was unremarkable, procalcitonin and slightly elevated at 0.10, WBC is normal today at 9.2. echo showed ejection fraction of 55-60% with severe LVH. Patient is switched to Cardizem pills and atenolol, also he is anticoagulated currently with Eliquis. Continue with antibiotics of this anastomosis Rocephin. Review of Systems CONSTITUTIONAL: No fever, no malaise, no fatigue. HEENT: No recent visual problems or hearing problems. Denied any sore throat. CARDIOVASCULAR: No orthopnea, PND, no palpitations, no syncope. PULMONARY: No shortness of breath, no hemoptysis. GASTROINTESTINAL: No diarrhea, no nausea, no vomiting, no abdominal pain. Normoactive bowel sounds. NEUROLOGICAL: No headaches, no weakness, no numbness. HEMATOLOGICAL: Denies any bleeding or petechiae. GENITOURINARY: Denies any burning micturition, frequency, or urgency. MUSCULOSKELETAL/RHEUMATOLOGICAL: Denies any joint pain, swelling, or any muscle pain. ENDOCRINE: Denies any polyuria or polydipsia. Active Medications Generic Name Dose Route Start Last Admin Trade Name Freq PRN Reason Stop Dose Admin Apixaban 5 mg 08/04/19 09:45 08/04/19 10:46 Eliquis PO 5 mg BID [facility] Administration Aspirin 325 mg 08/04/19 09:00 08/04/19 10:46 Aspirin PO 325 mg DAILY [facility] Administration Atenolol 25 mg 08/04/19 10:00 08/04/19 10:55 Tenormin PO 25 mg BID [facility] Administration Diltiazem HCl 30 mg 08/04/19 10:00 08/04/19 10:46 Cardizem Oral PO 30 mg TID [facility] Administration Guaifenesin/Dextromethorphan 10 ml 08/03/19 20:00 08/04/19 05:38 Robitussin Dm PO 10 ml Q8H [facility] Administration Ceftriaxone Sodium 1 gm/ 50 mls @ 100 mls/hr 08/03/19 16:45 08/04/19 10:46 Sodium Chloride IVPB 100 mls/hr DAILY [facility] Administration Azithromycin 500 mg/ Sodium 250 mls @ 250 mls/hr 08/04/19 16:00 Chloride IVPB DAILY@1600 [facility] Sodium Chloride 1,000 mls @ 5 mls/hr 08/03/19 19:45 08/04/19 10:49 Saline 0.9% IV 5 mls/hr .Q24H [facility] Administration Insulin Aspart 0 unit 08/04/19 07:30 08/04/19 06:25 Novolog SQ 3 unit ACHS [facility] Administration Protocol Methylprednisolone Sodium Succinate 60 mg 08/04/19 12:00 Solu-Medrol IV Q6HR [facility] Nitroglycerin 0.4 mg 08/03/19 16:16 Nitrostat SUBLINGUAL Q5M PRN Chest Pain Sodium Chloride 10 ml 08/03/19 21:00 08/04/19 10:47 Saline Flush IV 10 ml BID [facility] Administration Objective - Vital Signs Vital signs: Vital Signs Temp 98.7 F 08/05/19 08:30 Pulse 72 08/05/19 08:30 Resp 18 08/05/19 08:30 BP 128/83 08/05/19 08:30 Pulse Ox 94 L 08/05/19 08:30 Intake & Output 08/04/19 08/05/19 08/05/19 18:59 06:59 18:59 Intake Total 290 390 240 Output Total 1025 Balance 290 -635 240 Weight 138.3 kg Intake: IV 10 Invasive Line 1 10 Intake, IV Titration 50 80 Amount Sodium Chloride 0.9% 1, 80 000 ml @ 5 mls/hr IV . Q24H [facility] Rx#:[id number] cefTRIAXone 1 gm In 50 Sodium Chloride 0.9% 50 ml @ 100 mls/hr IVPB DAILY [facility] Rx#:[id number] Oral 240 300 240 Output: Urine 1025 Other: Voiding Method Urinal Urinal # Voids 1 - Exam GENERAL: The patient is alert and oriented x3, not in any acute distress. obese HEENT: Pupils are round and equally reacting to light. EOMI. No scleral icterus. No conjunctival pallor. Normocephalic, atraumatic. No pharyngeal erythema. No thyromegaly. CARDIOVASCULAR: S1 and S2 present. No murmurs, rubs, or gallops. PULMONARY: Chest is clear to auscultation, no wheezing or crackles. ABDOMEN: Soft, nontender, nondistended, normoactive bowel sounds. No palpable organomegaly. MUSCULOSKELETAL: No joint swelling or deformity. EXTREMITIES: No cyanosis, clubbing, or pedal edema. NEUROLOGICAL: Gross neurological examination did not reveal any focal deficits. SKIN: No rashes. no petechiae. - Labs CBC & Chem 7: 08/05/19 06:20 08/05/19 06:20 Labs: Abnormal Lab Results - Last 24 Hours (Table) 08/04/19 08/04/19 08/04/19 Range/Units 07:24 16:39 19:43 Plt Count (150-450) k/uL Neutrophils # (1.3-7.7) k/uL Lymphocytes # (1.0-4.8) k/uL Sodium (137-145) mmol/L Potassium (3.5-5.1) mmol/L Glucose (74-99) mg/dL POC Glucose (mg/dL) 277 H 352 H (75-99) mg/dL Procalcitonin 0.10 H (0.02-0.09) ng/mL 08/05/19 08/05/19 08/05/19 Range/Units 06:20 06:20 06:27 Plt Count 134 L (150-450) k/uL Neutrophils # 8.1 H (1.3-7.7) k/uL Lymphocytes # 0.9 L (1.0-4.8) k/uL Sodium 136 L (137-145) mmol/L Potassium 5.2 H (3.5-5.1) mmol/L Glucose 260 H (74-99) mg/dL POC Glucose (mg/dL) 243 H (75-99) mg/dL Procalcitonin (0.02-0.09) ng/mL 08/05/19 Range/Units 11:36 Plt Count (150-450) k/uL Neutrophils # (1.3-7.7) k/uL Lymphocytes # (1.0-4.8) k/uL Sodium (137-145) mmol/L Potassium (3.5-5.1) mmol/L Glucose (74-99) mg/dL POC Glucose (mg/dL) 338 H (75-99) mg/dL Procalcitonin (0.02-0.09) ng/mL Microbiology - Last 24 Hours (Table) 08/03/19 15:15 Blood Culture - Preliminary Blood No Growth after 24 hours Assessment and Plan Assessment: Atrial flutter With variable black Possible acute tracheobronchitis , versus other site infection Sepsis with systemic inflammatory response with fever, leukocytosis and tachycardia Hypertension Hyperlipidemia Osteoarthritis morbid obesity Plan: This is a pleasant 59 years old male who presents with sepsis, unknown source of infection. With atrial flutter. Continue with Tenormin, oral Cardizem Maru Eliquis. Continue with antibiotics per ID team Patient is found closely by cardiology and pulmonary. Consult infectious disease Labs and medication were reviewed.. Continue same treatment. Continue with symptomatic treatment. Resume home medication. Monitor lytes and vitals. DVT and GI prophylaxis. Further recommendations of the clinical course of the patient DVT prophylaxis: heparin GI Prophylaxis: Pepcid
[2019-08-05] MEDS: AZITHROMYCIN 500 MG in SODIUM CHLORIDE 0.9% 250 ML IVPB SCH (15:32)
[2019-08-05 16:49] LABS: Glucose,Whole Blood 361 mg/dL (75-99)
--- NOTE | 2019-08-05 17:13 | PN ---
PROGRESS NOTE 59-year-old gentleman who is admitted to hospital with new onset atrial flutter and bronchitis. Cardiology has been consulted for his flutter. This morning he remains in atrial flutter with controlled ventricular rate with a heart rate of 72 beats per minute. He is free of symptoms. PHYSICAL EXAM: Afebrile. Heart rate is 70 beats per minute. Blood pressure is 128/83, respiratory rate 18. There is no jugular venous distention. Chest exam reveals good air entry bilaterally. Heart exam reveals first and second heart sounds. Irregular rhythm. No murmur. ABDOMEN: Soft. Exam of extremities did not reveal any edema. Peripheral pulses are felt. He had an echocardiogram that showed normal LV systolic function without significant valvular heart disease. Medications the patient is currently on: Eliquis, Tenormin, oral Cardizem. I am going to stop the aspirin. Continue the Eliquis. Please continue the Tenormin. Please resume his lisinopril. Hopefully home tomorrow and patient will undergo WALLY cardioversion down the road. MMODL / IJN: [id number] /
[2019-08-05 20:35] LABS: Glucose,Whole Blood 348 mg/dL (75-99)
[2019-08-05] MEDS ORDERED: guaiFENesin-DM 100-10MG/5ML 10 ML CUP PO PRN (21:35)
[2019-08-05] MEDS: LISINOPRIL 5 MG TAB PO SCH (21:57)
[2019-08-05] MEDS: SODIUM CHLORIDE 0.9% 1,000 ML IV SCH (22:40)
[2019-08-06] MEDS: SODIUM CHLORIDE 0.9% 1,000 ML IV SCH (03:24)
[2019-08-06 06:11] LABS: Glucose,Whole Blood 272 mg/dL (75-99)
[2019-08-06] MEDS: INSULIN ASPART (NovoLOG) 100 UNIT/ML VIAL SQ SCH ×2 (06:23→12:18)
[2019-08-06] MEDS: methylPREDNISolone SOD SUCCI 125 MG/2 ML VIAL IV SCH ×2 (06:23→12:18)
[2019-08-06 07:00] LABS: African American GFR (CKD) >90 (>60 ml/min/1.73 sqM); Anion Gap 7 mmol/L; Blood Urea Nitrogen 19 mg/dL (9-20); Calcium 8.7 mg/dL (8.4-10.2); Carbon Dioxide 23 mmol/L (22-30); Chloride 105 mmol/L (98-107); Glucose 272 mg/dL (74-99); Non-African American GFR(CKD) >90 (>60 ml/min/1.73 sqM); Potassium 4.8 mmol/L (3.5-5.1); Sodium 135 mmol/L (137-145)
[2019-08-06 08:43] VITALS: TEMP 98.2
[2019-08-06] MEDS: HEPARIN SODIUM,PORCINE 5,000 UNIT/ML 1 ML VIAL SQ SCH (08:46)
[2019-08-06] MEDS: DILTIAZEM ORAL 60 MG TAB PO SCH ×2 (08:49→15:28)
[2019-08-06] MEDS: APIXABAN 5 MG TAB PO SCH (08:49)
[2019-08-06] MEDS: ATENOLOL 25 MG TAB PO SCH (08:49)
[2019-08-06] MEDS ORDERED: ASPIRIN 81 MG PO SCH (09:00)
[2019-08-06] MEDS: LISINOPRIL 5 MG TAB PO SCH (10:05)
[2019-08-06 11:11] VITALS: BP 118/77; PULSE 77; RESP 16
[2019-08-06 12:09] LABS: Glucose,Whole Blood 338 mg/dL (75-99)
--- NOTE | 2019-08-06 13:23 | P.PN ---
Subjective Progress Note Date: 08/06/19 This is a 59-year-old gentleman with history of hypertension, GERD, hyperlipidemia, obesity, diabetes, presented to the hospital with symptoms of chronic cough and shortness of breath. His EKG showed atrial fibrillation with a rapid ventricular response. The patient continues to be in atrial fibrillation this morning, his heart rate in the 110-120 range. We will increase the dose of Cardizem to 60 mg one tablet by mouth twice a day, continue current dose of atenolol. Objective - Vital Signs Vital signs: Vital Signs Temp 98.2 F 08/06/19 08:00 Pulse 77 08/06/19 11:11 Resp 16 08/06/19 11:11 BP 118/77 08/06/19 11:11 Pulse Ox 97 08/06/19 11:11 Intake & Output 08/05/19 08/06/19 08/06/19 18:59 06:59 18:59 Intake Total 1092 240 Output Total 1500 1575 Balance -408 -1575 240 Weight 139.3 kg Intake: Intake, IV Titration 135 Amount Sodium Chloride 0.9% 1, 35 000 ml @ 5 mls/hr IV . Q24H [facility] Rx#:[id number] cefTRIAXone 1 gm In 100 Sodium Chloride 0.9% 50 ml @ 100 mls/hr IVPB DAILY [facility] Rx#:[id number] Oral 957 240 Output: Urine 1500 1575 Other: Voiding Method Urinal # Voids 1 # Bowel Movements 1 - Exam GENERAL EXAM: Alert, very pleasant 59-year-old gentleman, on 2 L nasal cannula, comfortable in no apparent distress. HEAD: Normocephalic. EYES: Normal reaction of pupils, equal size. NOSE: Clear with pink turbinates. THROAT: No erythema or exudates. NECK: No masses, no JVD. CHEST: No chest wall deformity. LUNGS: Equal air entry with few scattered rhonchi. CVS: S1 and S2 normal with no audible murmur, irregular rhythm. ABDOMEN: No hepatosplenomegaly, normal bowel sounds, no guarding or rigidity. SPINE: No scoliosis or deformity SKIN: No rashes CENTRAL NERVOUS SYSTEM: No focal deficits, tone is normal in all 4 extremities. EXTREMITIES: There is no peripheral edema. No clubbing, no cyanosis. Peripheral pulses are intact. - Labs CBC & Chem 7: 08/05/19 06:20 08/06/19 05:25 Labs: Abnormal Lab Results - Last 24 Hours (Table) 08/05/19 08/05/19 08/05/19 Range/Units 06:20 16:47 20:29 Sodium (137-145) mmol/L Glucose (74-99) mg/dL POC Glucose (mg/dL) 361 H 348 H (75-99) mg/dL Hemoglobin A1c 8.0 H (4.0-6.0) % 08/06/19 08/06/19 08/06/19 Range/Units 05:25 06:09 12:07 Sodium 135 L (137-145) mmol/L Glucose 272 H (74-99) mg/dL POC Glucose (mg/dL) 272 H 338 H (75-99) mg/dL Hemoglobin A1c (4.0-6.0) % Microbiology - Last 24 Hours (Table) 08/03/19 15:15 Blood Culture - Preliminary Blood No Growth after 48 hours Assessment and Plan Plan: Assessment: #1 Shortness of breath, cough congestion suspect secondary to acute purulent tracheobronchitis. Pulmonary emboli ruled out. #2 Febrile illness secondary to above #3 New onset atrial fibrillation with rapid ventricular response, persistent #4 Obesity #5 Diabetes mellitus #6 Hypertension. #7 Hyperlipidemia. Plan We will increase the dose of Cardizem, continue current dose of beta heather. Patient may be able to be discharged home from our perspective. We will make him a follow-up appointment to see Dr. Faye in the office post discharge. DNP note has been reviewed, I agree with a documented findings and plan of care. Patient was seen and examined.
--- NOTE | 2019-08-06 14:04 | P.PN ---
Subjective Progress Note Date: 08/06/19 Principal diagnosis: Shortness of breath, cough and congestion This 59-year-old man patient was sitting consultation yesterday. He was told to have an acute bronchospastic reaction/acute bronchitis with secondary bronchospasm wheezing following a respiratory tract infection. The patient had a CAT scan of the chest that showed no acute abnormalities. He was started on IV Solu-Medrol and is improved significantly on today's evaluation. His cough has subsided. He remains in atrial fibrillation/flutter. The rates under control. The patient is on anticoagulants. He is on oral atenolol 25 mg twice a day and Cardizem 30 mg by mouth 3 times a day. He remains on a combination of IV Rocephin and Zithromax. He will likely need also long-term and to coagulation the patient was started on Eliquis 5 mg by mouth twice a day. No new complaints otherwise for now. I opted to give him another 24 hours of IV Solu-Medrol as the patient is improved significantly. On 08/06/2019 patient seen in follow-up on selective care unit, he is being treated for purulent tracheobronchitis, he is currently on accommodation Zithromax and Rocephin, IV steroids, he is responding to treatment, lung sounds are clear, he states he is feeling better, his cough is improving, he is not bringing up much phlegm. No fever or chills, room air pulse ox is 97%, respirations are nonlabored, he is COVID19 testing was negative. No acute events overnight, no hemoptysis no chest pain, patient can be considered for discharge home today Objective - Vital Signs Vital signs: Vital Signs Temp 98.2 F 08/06/19 08:00 Pulse 77 08/06/19 11:11 Resp 16 08/06/19 11:11 BP 118/77 08/06/19 11:11 Pulse Ox 97 08/06/19 11:11 Intake & Output 08/05/19 08/06/19 08/06/19 18:59 06:59 18:59 Intake Total 1092 240 Output Total 1500 1575 Balance -408 -1575 240 Weight 139.3 kg Intake: Intake, IV Titration 135 Amount Sodium Chloride 0.9% 1, 35 000 ml @ 5 mls/hr IV . Q24H [facility] Rx#:[id number] cefTRIAXone 1 gm In 100 Sodium Chloride 0.9% 50 ml @ 100 mls/hr IVPB DAILY [facility] Rx#:[id number] Oral 957 240 Output: Urine 1500 1575 Other: Voiding Method Urinal # Voids 1 # Bowel Movements 1 - Exam GENERAL EXAM: Alert, very pleasant, obese 59-year-old white male, on room air with a pulse ox of 97% comfortable in no apparent distress. HEAD: Normocephalic/atraumatic. EYES: Normal reaction of pupils, equal size. Conjunctiva pink, sclera white. NOSE: Clear with pink turbinates. THROAT: No erythema or exudates. NECK: No masses, no JVD, no thyroid enlargement, no adenopathy. CHEST: No chest wall deformity. Symmetrical expansion. LUNGS: Equal air entry with no crackles, wheeze, rhonchi or dullness. CVS: Regular rate and rhythm, normal S1 and S2, no gallops, no murmurs, no rubs ABDOMEN: Soft, nontender. No hepatosplenomegaly, normal bowel sounds, no guarding or rigidity. EXTREMITIES: No clubbing, no edema, no cyanosis, 2+ pulses and upper and lower extremities. MUSCULOSKELETAL: Muscle strength and tone normal. SPINE: No scoliosis or deformity SKIN: No rashes CENTRAL NERVOUS SYSTEM: Alert and oriented -3. No focal deficits, tone is normal in all 4 extremities. PSYCHIATRIC: Alert and oriented -3. Appropriate affect. Intact judgment and insight. - Labs CBC & Chem 7: 08/05/19 06:20 08/06/19 05:25 Labs: Abnormal Lab Results - Last 24 Hours (Table) 08/05/19 08/05/19 08/05/19 Range/Units 06:20 16:47 20:29 Sodium (137-145) mmol/L Glucose (74-99) mg/dL POC Glucose (mg/dL) 361 H 348 H (75-99) mg/dL Hemoglobin A1c 8.0 H (4.0-6.0) % 08/06/19 08/06/19 08/06/19 Range/Units 05:25 06:09 12:07 Sodium 135 L (137-145) mmol/L Glucose 272 H (74-99) mg/dL POC Glucose (mg/dL) 272 H 338 H (75-99) mg/dL Hemoglobin A1c (4.0-6.0) % Microbiology - Last 24 Hours (Table) 08/03/19 15:15 Blood Culture - Preliminary Blood No Growth after 48 hours Assessment and Plan Plan: Assessment: 1 Shortness of breath, cough congestion suspect secondary to acute purulent tracheobronchitis. Pulmonary emboli ruled out. The patient has an asthmatic or an Azmacort febrile reaction post tracheal bronchitis. No pneumonia. Improving with systemic steroids. CAT scan of the chest was negative. 2 Febrile illness secondary to above, recovered 3 New onset atrial fibrillation with rapid ventricular response, stable 4 Obesity 5 Diabetes mellitus 6 Hypertension. 7 Hyperlipidemia. Plan: Patient continues to improve, vital signs are stable, no fever or chills, office improving, no phlegm production, no hemoptysis, no chest pain, maintained in a trial fibrillation, he has been started on oral anticoagulation form of Eliquis. A pulmonary perspective patient is stable for discharge home today on steroid taper, and azithromycin. He will need outpatient follow-up with Dr. Beckwith in the office. And follow-up with cardiology for possibility of outpatient WALLY and cardioversion I performed a history & physical examination of the patient and discussed their management with my nurse practitioner, Migdalia Mann. I reviewed the nurse practitioner's note and agree with the documented findings and plan of care. Lung sounds are positive for diminished breath sounds. The findings and the impression was discussed with the patient. I attest to the documentation by the nurse practitioner. Time with Patient: Less than 30
[2019-08-06] MEDS ORDERED: AZITHROMYCIN 500 MG TAB PO SCH (16:00)
--- NOTE | 2019-08-08 01:45 | DS ---
DISCHARGE SUMMARY DATE OF ADMISSION: 08/03/2019 DATE OF DISCHARGE: 08/06/2019 FINAL DIAGNOSES: 1. Persistent atrial flutter with rapid ventricular rate. 2. Hyperlipidemia. 3. Essential hypertension. 4. Primary osteoarthritis. 5. Kidney stones. 6. Morbid obesity, body mass index 41.7. 7. Acute purulent tracheobronchitis with bronchospasms. 8. Hypertensive heart disease. 9. Possible bicuspid aortic valve. HOSPITAL COURSE: The patient presented to the ER with new onset of atrial flutter fibrillation. In the last few weeks, the patient has had several course of antibiotics up to 4. Sometimes with different colored sputum. Has been following with Dr. Beckwith. He was found to have atrial fibrillation. Admitted for the same. Medications adjusted. Cardiac symptoms much improved by the time of discharge. Heart rate about 110. The patient also was given a burst of steroids. Respiratory symptoms greatly improved. Minimal cough if any. No chest tightness. Care was discussed with the patient on day of discharge. Questions were answered. CONSULTATION: Dr. Eleuterio Faye from Cardiology, Dr. Bergeron from Pulmonary. INVESTIGATIONS: Two-D echocardiogram shows atrial flutter fibrillation, severe concentric LVH, EF 55% to 60%. Aortic valve possibly bicuspid. Chest CTA no evidence of PE. PHYSICAL EXAMINATION: Temperature 98.2, pulse 91, respiratory 18, blood pressure 131/85, pulse ox 96% on room air. LUNGS: Fair entry. CARDIOVASCULAR: Heart is irregular. DISCHARGE MEDICATIONS: 1. Aspirin 81 mg b.i.d. 2. Tenormin 25 mg b.i.d. 3. Glucosamine chondroitin 1 tablet b.i.d. 4. Zestoretic 11/18.5 one tablet p.o. daily. 5. Ventolin HFA 2 puffs q.4 p.r.n. 6. Lipitor 20 mg at bedtime. 7. Metformin 1000 mg b.i.d. 8. Eliquis 5 mg b.i.d. 9. Cardizem 60 mg t.i.d. 10.Prednisone taper. Follow up with Dr. Sullivan on August 06, Dr. Beckwith on August 28, Dr. Eleuterio Faye on August 21. MMODL / IJN: [id number] /
== END 2019-08-06 16:20 | disposition home or self-care (01) | DRG 872 ==
LOC: EC 14:13 → 3SCARD 16:36 → OBSVTOIN 08-05 10:28
PROVIDERS: ADMIT Hospitalist; ATTEND Hospitalist
DX: A41.9 Sepsis, unspecified organism (principal); I48.4 Atypical atrial flutter; I48.19 Other persistent atrial fibrillation; Z68.41 Body mass index [BMI] 40.0-44.9, adult; I11.9 Hypertensive heart disease without heart failure; E66.01 Morbid (severe) obesity due to excess calories; E11.9 Type 2 diabetes mellitus without complications; Z20.828 Contact with and (suspected) exposure to other viral communicable diseases; J20.9 Acute bronchitis, unspecified; J45.909 Unspecified asthma, uncomplicated; I44.30 Unspecified atrioventricular block; E78.5 Hyperlipidemia, unspecified; N20.0 Calculus of kidney; K21.9 Gastro-esophageal reflux disease without esophagitis; M19.91 Primary osteoarthritis, unspecified site; Z79.82 Long term (current) use of aspirin; Z79.84 Long term (current) use of oral hypoglycemic drugs; Z79.899 Other long term (current) drug therapy; Z71.3 Dietary counseling and surveillance; Z87.442 Personal history of urinary calculi; Z86.79 Personal history of other diseases of the circulatory system; Z98.818 Other dental procedure status; Z87.891 Personal history of nicotine dependence; Z83.3 Family history of diabetes mellitus; Z82.49 Family history of ischemic heart disease and other diseases of the circulatory system
CPT/HCPCS: 36415; 71046; 71275; 80048; 80053; 80061; 80306; 81001; 82550; 83036; 83735; 84145; 84443; 84484; 85025; 85610; 85730; 87040; 93005; 93306; 94640; 96365; 96366; 96368; 96376; 99291

== ENCOUNTER 2019-08-31 06:23 | Day surgery (SDC) | payer BC ==
[2019-08-30 08:53] VITALS: BMI 41.3
[~2019-08-31 06:23] MED LIST changes: -LACTATED RINGERS 1,000 ML IV SCH; +SODIUM CHLORIDE 0.9% 1,000 ML IV SCH
[2019-08-31 07:14] LABS: Glucose,Whole Blood 174 mg/dL (75-99)
[2019-08-31] MEDS ORDERED: PROPOFOL 10 MG/ML 20 ML VIAL IV ONE (07:24)
[2019-08-31] MEDS ORDERED: BENZOCAINE SPRAY 1 CAN TOPICAL ONE (07:31)
[2019-08-31 07:54] VITALS: TEMP 98
[2019-08-31 08:03] VITALS: RESP 16
[2019-08-31] MEDS ORDERED: SODIUM CHLORIDE 0.9% 1,000 ML IV SCH (08:30)
--- NOTE | 2019-08-31 08:49 | ECHOT ---
TRANSESOPHAGEAL ECHOCARDIOGRAM PROCEDURE: Transesophageal echocardiogram was performed. A 2D color and Doppler was done. INDICATION: Persistent atrial fibrillation, rule out intracardiac thrombus. PROCEDURE NOTE: After obtaining informed consent, transesophageal echocardiogram is performed in left lateral position using an Omniplane probe. Local and IV sedation were obtained by the lidder. FINDINGS: 1. There is a small echodense lesion within the left atrial appendage consistent with left atrial appendage thrombus. 2. Left ventricle has normal size, shows concentric left ventricular hypertrophy with normal LV function. 3. Left atrium appears mildly enlarged. 4. Right atrium, right ventricle seen within normal limits. 5. Mitral valve shows mild mitral regurgitation. 6. Aortic valve is free of stenosis or regurgitation. 7. There is mild tricuspid regurgitation. 8. Interatrial septum, there is no evidence of cxww-ab-vycwe shunt by color-flow Doppler or abdha-qn-csik shunt by agitated saline contrast study. CONCLUSION: Left atrial appendage thrombus noted. PLAN: Patient will continue with the anticoagulation. Will bring him back 6 weeks later. We can take another look and cardioversion at that time. In the meantime, we will continue the Eliquis and I will add an aspirin. MMODL / IJN: [id number] / ALLEN
[2019-08-31 09:16] VITALS: BP 125/80; PULSE 68
--- NOTE | 2019-09-04 07:35 | CDI ---
Date: 09.04.2019 CDS/Scientific Programmer Analyst Name: Loli Carlson Phone: If any questions, call Ursula Valles Manager Manufacturing at [phone] Patient Name: Nirmal Marks Admit Date: 08.31.19 Discharge Date: 08.31.19 ATTENTION: The [facility] Coding Staff appreciate your assistance in clarifying documentation. Please respond to the clarification below the line at the bottom and electronically sign. The [facility] Coding staff will review the response and follow-up if needed. Please note: Queries are made part of the Legal Health Record. If you have any questions, please contact the Manager Manufacturing. Dear Dr. Faye The description of the WALLY is missing from the documentation. Please document the description. Thank you for your kind consideration. ALLEN
== END 2019-08-31 09:14 | disposition home or self-care (01) ==
LOC: CATHCVL 06:23
PROVIDERS: ATTEND Internal Medicine Cardiovascular Disease
DX: I51.3 Intracardiac thrombosis, not elsewhere classified (principal); I08.1 Rheumatic disorders of both mitral and tricuspid valves; I48.19 Other persistent atrial fibrillation; I10 Essential (primary) hypertension; E78.2 Mixed hyperlipidemia; E11.9 Type 2 diabetes mellitus without complications; I49.1 Atrial premature depolarization; K08.89 Other specified disorders of teeth and supporting structures; Z72.0 Tobacco use; Z79.01 Long term (current) use of anticoagulants; Z79.899 Other long term (current) drug therapy; Z79.82 Long term (current) use of aspirin; Z79.4 Long term (current) use of insulin; Z82.49 Family history of ischemic heart disease and other diseases of the circulatory system
CPT/HCPCS: 93312; 93320; 93325; J2704; 92960

== ENCOUNTER → 2019-11-08 | Day surgery (SDC) | payer BC ==
[2019-11-05 10:21] VITALS: BMI 42.3
[~2019-11-08] MED LIST changes: +LACTATED RINGERS 1,000 ML IV SCH; +PROPOFOL 10 MG/ML 20 ML VIAL IV ONE; +SODIUM CHLORIDE 0.9% 500 ML 500 ML IV ONE; +amLODIPine 10 MG TAB PO SCH
[2019-11-08 09:58] VITALS: TEMP 98.2
[2019-11-08 09:59] LABS: Glucose,Whole Blood 132 mg/dL (75-99)
[2019-11-08 11:11] VITALS: RESP 16
[2019-11-08 12:59] VITALS: BP 127/79; PULSE 56
--- NOTE | 2019-11-08 13:50 | ECHOT ---
TRANSESOPHAGEAL ECHOCARDIOGRAM TRANSESOPHAGEAL ECHO: INDICATION: Persistent atrial fibrillation. After obtaining informed consent, transesophageal echocardiogram is performed in left lateral position using an Omni plane probe. Local and IV sedation were obtained by the road freight conductor. The patient had color Doppler 2D evaluation. FINDINGS: 1. There is no intracardiac thrombus within the left atrial appendage, left atrium, right atrium, right ventricle or left ventricle. 2. Left ventricle has normal systolic function. 3. Left atrium appears enlarged. 4. Mitral valve shows mild mitral regurgitation. 5. Aortic valve is a bicuspid valve. There is no evidence of aortic stenosis or regurgitation. 6. Tricuspid valve shows mild tricuspid regurgitation. 7. There is no evidence of wmue-zv-balud shunt by color-flow Doppler or eavit-bb-xlvf shunt by agitated saline contrast study. 8. Ascending aorta appears dilated, measures 3.7 cm. There is ectasia of the aortic sinuses noted. CONCLUSION: 1. Normal LV systolic function. 2. No intracardiac thrombus. 3. Mild mitral regurgitation. PLAN: Patient will undergo cardioversion. CARDIOVERSION NOTE: INDICATION: Persistent atrial fibrillation. After obtaining informed consent, the patient underwent electrical cardioversion with 300 joules of synchronized DC current and converted to sinus rhythm after a single shock. He was anesthetized by the road freight conductor. The patient is on Eliquis which is going to continue. I will stop the Cardizem and decrease the dose of Tenormin. MMODL / IJN: [id number] /
--- NOTE | 2019-11-12 09:51 | CDI ---
Outpatient Documentation Clarification Form Date: 11/12/19 CDS/Organic Chemistry Teacher Name: Nikkie Canales Phone: If any questions, call Ursula Valles Client Services Account Manager at [phone] Patient Name: Nirmal Marks Admit Date: 11/08/19 Discharge Date: 11/08/19 ATTENTION: The [facility] Coding Staff appreciate your assistance in clarifying documentation. Please respond to the clarification below the line at the bottom and electronically sign. The [facility] Coding staff will review the response and follow-up if needed. Please note: Queries are made part of the Legal Health Record. If you have any questions, please contact the Client Services Account Manager. Dear Dr. Faye, Please provide clarification for the procedure performed. Please clarify how many aspects of the WALLY were performed. Charges indicate: Echocardiography, , transesophageal, real time with image documentation (2D) (with or without M-mode recording) including probe placement, image acquisition, interpretation and report, Doppler echo pulse wave w/spectral display Doppler echocardiography color flow velocity mapping. The procedure note does not document all the above. Please clarify. Thank you for your kind consideration 2d color dopplerwithout m mode MTDD
== END ==
LOC: CATHCVL 09:25
PROVIDERS: ATTEND Internal Medicine Cardiovascular Disease
DX: I08.1 Rheumatic disorders of both mitral and tricuspid valves (principal); Q23.1 Congenital insufficiency of aortic valve; I48.19 Other persistent atrial fibrillation; I48.92 Unspecified atrial flutter; I77.819 Aortic ectasia, unspecified site; I51.7 Cardiomegaly; I10 Essential (primary) hypertension; E11.9 Type 2 diabetes mellitus without complications; E78.5 Hyperlipidemia, unspecified; Z87.891 Personal history of nicotine dependence; Z82.49 Family history of ischemic heart disease and other diseases of the circulatory system; I47.1 Supraventricular tachycardia; M19.90 Unspecified osteoarthritis, unspecified site; E66.01 Morbid (severe) obesity due to excess calories; Z68.41 Body mass index [BMI] 40.0-44.9, adult; Z79.82 Long term (current) use of aspirin; Z79.4 Long term (current) use of insulin; Z79.899 Other long term (current) drug therapy; Z79.01 Long term (current) use of anticoagulants
CPT/HCPCS: 93312; 93320; 93325; 92960; J2704

== ENCOUNTER → 2019-12-11 | Outpatient (CLI) | payer BC | END | disposition home or self-care (01) | LOC: LABWHC1 15:02 | PROVIDERS: ATTEND Internal Medicine Cardiovascular Disease | DX: I48.11 Longstanding persistent atrial fibrillation (principal) | CPT/HCPCS: 36415; 84443; 84450; 84460 ==

== ENCOUNTER 2021-07-17 06:16 | Day surgery (SDC) | payer BC ==
[2021-07-15 15:31] VITALS: BMI 41.8
[~2021-07-17 06:16] MED LIST changes: -LACTATED RINGERS 1,000 ML IV SCH; -PROPOFOL 10 MG/ML 20 ML VIAL IV ONE; -SODIUM CHLORIDE 0.9% 500 ML 500 ML IV ONE; -amLODIPine 10 MG TAB PO SCH
[2021-07-17 06:58] LABS: Glucose,Whole Blood 131 mg/dL (75-99)
[2021-07-17] MEDS ORDERED: SODIUM CHLORIDE 0.9% 1,000 ML IV ONE (07:22)
[2021-07-17] MEDS ORDERED: LIDOCAINE 2% INJ 20 MG/ML (2 ML VIAL) ONE (07:55)
[2021-07-17] MEDS ORDERED: PROPOFOL 10 MG/ML 20 ML VIAL IV ONE (07:55)
[2021-07-17 08:24] VITALS: RESP 16; TEMP 98
--- NOTE | 2021-07-17 08:55 | ECHOT ---
TRANSESOPHAGEAL ECHOCARDIOGRAM INDICATION: Persistent atrial fibrillation. To rule out intracardiac thrombus. PROCEDURE NOTE: After obtaining informed consent, transesophageal echocardiogram was performed in left lateral position using an Omniplane probe. Local and IV sedation were obtained by the senior quality assurance engineer. The patient tolerated the procedure well without any obvious immediate complications. Two-D, color Doppler and spectral analysis were performed. FINDINGS: 1. There is no intracardiac thrombus within the left atrial appendage, left atrium, right atrium, right ventricle or left ventricle. 2. Left ventricle has normal size and systolic function. 3. Left atrium appears mildly enlarged. 4. Right atrium and right ventricle seem within normal limits. 5. Interatrial septum: There is no evidence of fpyh-bo-agtfs shunt by color-flow Doppler or fnbto-co-phuu shunt by agitated saline contrast study. 6. There is no intracardiac thrombus within the left atrial appendage. 7. Aortic root appears mildly dilated, measuring 4.1 cm. 8. There is mild tricuspid regurgitation noted. CONCLUSIONS: 1. No intracardiac thrombus. 2. Normal LV function. 3. Mildly dilated aortic root. PLAN: Patient will proceed with cardioversion. MMODL / IJN: [id number] /
--- NOTE | 2021-07-17 08:59 | PCN ---
PROCEDURE NOTE CARDIOVERSION NOTE: INDICATION: Persistent atrial fibrillation. PROCEDURE NOTE: After obtaining informed consent, electrical cardioversion was performed with a single synchronized shock of 120 joules. The patient was anesthetized by the rim technician. Intracardiac thrombus was ruled out per a WALLY and patient was adequately anticoagulated with Eliquis. He will be discharged home on Eliquis. RUSSELL / MICHAELLE: [id number] /
[2021-07-17 09:54] VITALS: BP 108/60; PULSE 70
== END 2021-07-17 10:01 | disposition home or self-care (01) ==
LOC: CATHCVL 06:16
PROVIDERS: ATTEND Internal Medicine Cardiovascular Disease
DX: I48.0 Paroxysmal atrial fibrillation (principal)
CPT/HCPCS: 92960; 93312; 93320; 93325; J2704; J2001

== ENCOUNTER → 2022-07-16 | Day surgery (SDC) | payer BC ==
[2022-07-14 13:50] VITALS: BMI 39.4
[2022-07-16 07:10] VITALS: BP 128/68; PULSE 70; RESP 16; TEMP 97.2
== END ==
LOC: OR 06:35
PROVIDERS: ATTEND Internal Medicine Cardiovascular Disease
DX: I48.0 Paroxysmal atrial fibrillation (principal)

== ENCOUNTER 2022-09-24 08:02 | Day surgery (SDC) | payer BC ==
[2022-09-24] MEDS ORDERED: LIDOCAINE 1% (10MG/ML) FOR IV START INTRADERMA PRN (08:26)
[2022-09-24] MEDS ORDERED: LACTATED RINGERS 1,000 ML IV SCH (08:26)
[2022-09-24 08:41] VITALS: TEMP 97.8
[2022-09-24 08:58] LABS: Glucose,Whole Blood 140 mg/dL (70-110)
[2022-09-24] MEDS ORDERED: LIDOCAINE 2% INJ 20 MG/ML (2 ML VIAL) ONE (09:35)
[2022-09-24] MEDS ORDERED: PROPOFOL 10 MG/ML 20 ML VIAL IV ONE (09:35)
--- NOTE | 2022-09-24 09:49 | P.PCN ---
Date of Procedure: 09/24/22 Procedure(s) Performed: BRIEF HISTORY: Patient is a 62-year-old, pleasant, white male with long-standing history of GERD scheduled for an upper endoscopy with a possible dilation as a part of evaluation of progressive dysphagia to solids for the last several months duration.. PROCEDURE PERFORMED: Esophagogastroduodenoscopy with biopsy. PREOPERATIVE DIAGNOSIS: Progressive dysphagia to solids of several months duration. IV sedation per anesthesia. PROCEDURE: After informed consent was obtained, the patient was brought into the endoscopy unit. IV sedation was administered by Anesthesia under continuous monitoring. Initially the Olympus GIF-140 video endoscope was inserted into the mouth. Esophagus intubated without any difficulty. It was gradually advanced into the stomach and duodenum and carefully examined. The bulb and the second part of the duodenum appeared normal. The scope at this time was withdrawn to the stomach, adequately insufflated with air, and upon careful examination, mucosa of the antrum, and mild gastritis. Mucosa of the body, and the fundus appeared normal. The scope was then withdrawn into the esophagus. The GE junction was located at 41 cm from the incisors. There was a distal esophageal ulcerated mass extending from 38 cm from the incisors all the way into the cardia of the stomach and up to 46 cm from the incisors and multiple biopsies were done from this mass from the cardia as well as in the distal esophagus. The rest of the esophagus appeared normal. The the patient tolerated the procedure well. IMPRESSION: 1. Distal esophageal ulcerated mass extending from 38-46 cm from the incisors involving the cardia of the stomach with some luminal narrowing status post multiple biopsies. 2. Mild gastritis. RECOMMENDATIONS: The findings of this examination were discussed with the patient as well as his family. He was advised to follow with the biopsies and he will be seen in office early next week..
[2022-09-24 10:16] VITALS: BP 131/89; PULSE 55; RESP 18
[2022-09-24 10:16] LABS: Glucose,Whole Blood 138 mg/dL (70-110)
== END 2022-09-24 10:47 | disposition home or self-care (01) ==
LOC: ORWHC2ENDO 08:02
PROVIDERS: ATTEND Internal Medicine Gastroenterology
DX: C15.5 Malignant neoplasm of lower third of esophagus (principal); K29.70 Gastritis, unspecified, without bleeding; K21.9 Gastro-esophageal reflux disease without esophagitis; I10 Essential (primary) hypertension; E78.5 Hyperlipidemia, unspecified; I48.91 Unspecified atrial fibrillation; E11.9 Type 2 diabetes mellitus without complications; M19.90 Unspecified osteoarthritis, unspecified site; Z79.810 Long term (current) use of selective estrogen receptor modulators (SERMs); Z79.01 Long term (current) use of anticoagulants; Z79.899 Other long term (current) drug therapy; Z79.84 Long term (current) use of oral hypoglycemic drugs; Z79.811 Long term (current) use of aromatase inhibitors
CPT/HCPCS: 88305; 88342; 88341; 43239; J2704; J2001

== ENCOUNTER → 2022-10-14 | Outpatient (CLI) | payer BC | END | disposition home or self-care (01) | LOC: LABWHC1 16:26 | PROVIDERS: ATTEND Internal Medicine Cardiovascular Disease | DX: I48.0 Paroxysmal atrial fibrillation (principal) | CPT/HCPCS: 36415; 84443; 84450; 84460 ==

== ENCOUNTER → 2022-11-17 | Outpatient (CLI) | payer BC ==
--- NOTE | 2022-11-17 15:52 | US ---
EXAMINATION TYPE: US bladder DATE OF EXAM: 11/17/2022 COMPARISON: NONE CLINICAL INDICATION: Male, 62 years old with history of R35.0 FREQUENCY OF MICTURITION; Pt states juliocesar quency of micturition TECHNIQUE: Multiple sonographic images of the bladder are obtained. FINDINGS: EXAM MEASUREMENTS: Post Void Residual Volume: 22 mL OIL HEAT TECHNICIAN NOTES: Color Doppler performed to assess ureteral jets. Bilateral Jets seen: No Normal Post Void Residual (less than 50ml): Yes Possible thickened wall= 1.2 cm IMPRESSION: Mild wall thickening suggested.
== END | disposition home or self-care (01) ==
LOC: RADUSWWP 15:24
PROVIDERS: ATTEND Family Medicine
DX: R35.0 Frequency of micturition (principal)
CPT/HCPCS: 76857

== ENCOUNTER 2022-12-19 15:02 | Inpatient (IN) | payer BC ==
[2022-12-19] MEDS ORDERED: SODIUM CHLORIDE 0.9% 500 ML 500 ML IV STA (15:19)
[2022-12-19] MEDS ORDERED: SODIUM CHLORIDE 0.9% 1,000 ML IV STA (15:19)
--- NOTE | 2022-12-19 15:26 | ED ---
General Adult HPI <Ricky Gomez - Last Filed: 12/19/22 18:12> - General Source: patient, family, EMS, RN notes reviewed Mode of arrival: EMS Limitations: no limitations <Kike Modi - Last Filed: 12/20/22 06:16> - General Chief complaint: Syncope Stated complaint: SYNCOPE Time Seen by Provider: 12/19/22 15:03 - History of Present Illness Initial comments: 62-year-old male presents emergency department via EMS she went of syncopal episode. Patient was at a benefit today for himself and which she is under treatment for esophageal cancer receiving chemo and radiation. He schedule have his next dose tomorrow. Patient states that he started feeling very thirsty, dry mouth he states that he felt slightly lightheaded states that down states he sat back in the chair next he knew he passed out. He reportedly was only out for a few seconds. Patient has no complaints currently other than feeling slightly tired there is no significant head injury. Patient does admit that he did not eat or drink much today and was noted to have mild hypertension. Patient denies chest pain or palpitations (Kike Modi) - Related Data Home Medications Medication Instructions Recorded Confirmed Lisinopril-Hctz 10-12.5 mg 1 tab PO DAILY 06/28/16 12/19/22 [Zestoretic 10-12.5] Atorvastatin Calcium [Lipitor] 20 mg PO HS 08/03/19 12/19/22 Mv-Min/Folic/K1/Lycopen/Lutein 1 tab PO HS 11/05/19 12/19/22 [Centrum Silver Men Tablet] amLODIPine [Norvasc] 10 mg PO HS 07/15/21 12/19/22 Dulaglutide [Trulicity] 1.5 mg SQ WE 07/14/22 12/19/22 Pantoprazole [Protonix] 40 mg PO HS 07/14/22 12/19/22 atenoloL [Tenormin] 25 mg PO DAILY 07/14/22 12/19/22 Fluticasone/Umeclidin/Vilanter 1 puff INHALATION RT-DAILY 09/21/22 12/19/22 [Trelegy Ellipta 200-62.5-25] Montelukast [Singulair] 10 mg PO HS 09/21/22 12/19/22 Amiodarone [Cordarone] 200 mg PO HS 12/19/22 12/19/22 Glucosamine Sulfate 500 mg PO BID 12/19/22 12/19/22 Previous Rx's Medication Instructions Recorded Apixaban [Eliquis] 5 mg PO BID #60 tab 08/06/19 Allergies Allergy/AdvReac Type Severity Reaction Status Date / Time No Known Allergies Allergy Verified 12/19/22 15:10 Review of Systems ROS Other: All systems not noted in ROS Statement are negative. <Ricky Gomez - Last Filed: 12/19/22 18:12> ROS Other: All systems not noted in ROS Statement are negative. <Kike Modi - Last Filed: 12/20/22 06:16> ROS Statement: Those systems with pertinent positive or pertinent negative responses have been documented in the HPI. Past Medical History Past Medical History: Atrial Fibrillation, Atrial Flutter, Cancer, Diabetes Me llitus, Hyperlipidemia, Hypertension, Osteoarthritis (OA), Respiratory Disorder, Supraventricular Tachycardia (SVT) Additional Past Medical History / Comment(s): HX KIDNEY STONES. HX TRACHEOBRONCHITIS (HOSPITALIZED JULY 2019). Varicose veins. being tx for resp illness at this time- inhalers and trelegy, singulair. still r/o. blood clot in heart 2019- eliquis. currently has the feeling that food gets stuck at the bottom. steroid shot in knee and thumb. neuropathy in feet History of Any Multi-Drug Resistant Organisms: None Reported Past Surgical History: No Surgical Hx Reported Additional Past Surgical History / Comment(s): WISDOM TEETH EXTRACTIONS, cardioversion with WALLY. colonoscopy, Past Anesthesia/Blood Transfusion Reactions: No Reported Reaction Past Psychological History: Anxiety Smoking Status: Former smoker Past Alcohol Use History: None Reported Past Drug Use History: None Reported - Past Family History Mother Family Medical History: Diabetes Mellitus Father Family Medical History: Coronary Artery Disease (CAD) <Kike Modi - Last Filed: 12/20/22 06:16> General Exam Limitations: no limitations General appearance: alert, in no apparent distress Head exam: Present: atraumatic, normocephalic, normal inspection Eye exam: Present: normal appearance, PERRL, EOMI. Absent: scleral icterus, conjunctival injection, periorbital swelling ENT exam: Present: normal exam, mucous membranes moist Neck exam: Present: normal inspection, full ROM. Absent: tenderness, meningismu s, lymphadenopathy Respiratory exam: Present: normal lung sounds bilaterally. Absent: respiratory distress, wheezes, rales, rhonchi, stridor Cardiovascular Exam: Present: regular rate, normal rhythm, normal heart sounds. Absent: systolic murmur, diastolic murmur, rubs, gallop, clicks GI/Abdominal exam: Present: soft, normal bowel sounds. Absent: distended, tenderness, guarding, rebound, rigid Neurological exam: Present: alert, oriented X3, CN II-XII intact, reflexes normal. Absent: motor sensory deficit Skin exam: Present: warm, dry, intact, normal color. Absent: rash <Kike Modi M - Last Filed: 12/20/22 06:16> Course Vital Signs 12/19/22 12/19/22 12/19/22 15:04 15:07 15:30 Temperature 98.4 F Pulse Rate 72 Pulse Rate [ Relay Assembler ] Respiratory 18 Rate Blood Pressure 99/60 99/60 99/60 Blood Pressure [Right Arm Sitting] Blood Pressure [Right Arm Standing] Blood Pressure [Right Arm Supine] O2 Sat by Pulse 98 99 Oximetry 12/19/22 12/19/22 12/19/22 16:00 16:29 16:30 Temperature Pulse Rate 70 68 70 Pulse Rate [ Relay Assembler ] Respiratory 18 18 18 Rate Blood Pressure 99/60 92/58 92/58 Blood Pressure [Right Arm Sitting] Blood Pressure [Right Arm Standing] Blood Pressure [Right Arm Supine] O2 Sat by Pulse 97 97 98 Oximetry 12/19/22 12/19/22 12/19/22 17:00 17:17 17:30 Temperature 98.2 F Pulse Rate 69 68 Pulse Rate [ 70 Relay Assembler ] Respiratory 16 18 16 Rate Blood Pressure 92/58 86/47 Blood Pressure 96/59 [Right Arm Sitting] Blood Pressure 86/47 [Right Arm Standing] Blood Pressure 94/54 [Right Arm Supine] O2 Sat by Pulse 96 96 96 Oximetry 12/19/22 12/19/22 12/19/22 17:31 18:00 18:30 Temperature Pulse Rate 67 70 66 Pulse Rate [ Relay Assembler ] Respiratory 18 17 16 Rate Blood Pressure 89/55 88/50 87/55 Blood Pressure [Right Arm Sitting] Blood Pressure [Right Arm Standing] Blood Pressure [Right Arm Supine] O2 Sat by Pulse 97 96 Oximetry 12/19/22 12/19/22 12/19/22 19:00 19:30 20:00 Temperature Pulse Rate 67 67 69 Pulse Rate [ Relay Assembler ] Respiratory 19 12 21 Rate Blood Pressure 101/62 102/67 92/59 Blood Pressure [Right Arm Sitting] Blood Pressure [Right Arm Standing] Blood Pressure [Right Arm Supine] O2 Sat by Pulse 99 98 97 Oximetry EKG Findings - EKG Comments: EKG Findings:: EKG performed at 15:08 sinus rhythm with first-degree block rate of 78 MD 232 QRS 114 QT/QTC 411/432 - EKG Results: EKG: interpreted by ERMD <Kike Modi - Last Filed: 12/20/22 06:16> Medical Decision Making - Lab Data Result diagrams: 12/19/22 15:22 12/19/22 15:22 <Ricky Gomez - Last Filed: 12/19/22 18:12> - Lab Data Result diagrams: 12/19/22 15:22 12/19/22 15:22 <Kike Modi - Last Filed: 12/20/22 06:16> - Medical Decision Making Case discussed with Dr. Beckwith regarding possible ICU admission. Dr. Beckwith states that patient can be admitted to 3 S. and should patient decompensate and he can be moved to the intensive care unit. (Ricky Gomez) Was pt. sent in by a medical professional or institution (, PA, LABOR RELATIONS DIRECTOR, urgent care, hospital, or snf...) When possible be specific @ -No Did you speak to anyone other than the patient for history (EMS, parent, family, police, friend...)? What history was obtained from this source @ -EMS provided prehospital treatment, vitals and complaint Did you review nursing and triage notes (agree or disagree)? Why? @ -I reviewed and agree with nursing and triage notes Were old charts reviewed (outside hosp., previous admission, EMS record, old EKG, old radiological studies, urgent care reports/EKG's, snf records)? Report findings @ -No old charts were reviewed Differential Diagnosis (chest pain, altered mental status, abdominal pain women, abdominal pain men, vaginal bleeding, weakness, fever, dyspnea, syncope, headache, dizziness, GI bleed, back pain, seizure, CVA, palpatations, mental health, musculoskeletal)? @ -nDifferential Weakness: Hypoglycemia, shock, sepsis, hyponatremia, anemia, infection, MS, ETOH, adverse medicine reaction, overdose, stroke, this is not meant to be an all-inclusive list.le EKG interpreted by me (3pts min.). @ -As above X-rays interpreted by me (1pt min.). @ -Chest x-ray shows no acute cardio pulmonary process CT interpreted by me (1pt min.). @ -None done U/S interpreted by me (1pt. min.). @ -None done What testing was considered but not performed or refused? (CT, X-rays, U/S, labs)? Why? @ -None What meds were considered but not given or refused? Why? @ -None Did you discuss the management of the patient with other professionals (professionals i.e. , PA, LABOR RELATIONS DIRECTOR, lab, RT, psych nurse, adoption social worker, payroll accountant, teacher, probation and parole officer, vocational case manager)? Give summary @ -Dr. Mcdaniel for admission secondary to persistent hypotension are likely from dehydration Was smoking cessation discussed for >3mins.? @ -No Was critical care preformed (if so, how long)? @ -No Were there social determinants of health that impacted care today? How? (Homelessness, low income, unemployed, alcoholism, drug addiction, transportation, low edu. Level, literacy, decrease access to med. care, [facility], rehab)? @ -No Was there de-escalation of care discussed even if they declined (Discuss DNR or withdrawal of care, Hospice)? DNR status @ -No What co-morbidities impacted this encounter? (DM, HTN, Smoking, COPD, CAD, Cancer, CVA, ARF, Chemo, Hep., AIDS, mental health diagnosis, sleep apnea, morbid obesity)? @ -Esophageal cancer, hypertension Was patient admitted / discharged? Hospital course, mention meds given and route, prescriptions, significant lab abnormalities, going to OR and other pertinent info. @ -Admitted patient had full workup showing mild HPI, evidence of dehydration. Patient was given 2 L bolus had minimal improvement of blood pressure patient remains to be mildly hypotensive there is no clear evidence of acute infection. Patient will be monitored overnight for fluid hydration and blood pressure monitoring. Undiagnosed new problem with uncertain prognosis? @ -No Drug Therapy requiring intensive monitoring for toxicity (Heparin, Nitro, Insulin, Cardizem)? @ -No Were any procedures done? @ -No Diagnosis/symptom? @ -Esophageal cancer, dehydration, syncope, hypotension Acute, or Chronic, or Acute on Chronic? @ -Acute Uncomplicated (without systemic symptoms) or Complicated (systemic symptoms)? @ -Complicated Side effects of treatment? @ -No Exacerbation, Progression, or Severe Exacerbation? @ -No Poses a threat to life or bodily function? How? (Chest pain, USA, MS, pneumonia, PE, COPD, DKA, ARF, appy, cholecystitis, CVA, Diverticulitis, Homicidal, Suicidal, threat to staff... and all critical care pts) @ -yes patient has underlying cancer (Kike Modi) - Lab Data Lab Results 12/19/22 12/19/22 12/19/22 Range/Units 15:22 15:22 15:22 WBC 2.2 L (3.8-10.6) k/uL RBC 3.70 L (4.30-5.90) m/uL Hgb 11.9 L (13.0-17.5) gm/dL Hct 33.5 L (39.0-53.0) % MCV 90.4 (80.0-100.0) fL MCH 32.2 (25.0-35.0) pg MCHC 35.7 (31.0-37.0) g/dL RDW 15.8 H (11.5-15.5) % Plt Count 122 L (150-450) k/uL MPV 7.8 Neutrophils % 81 % Lymphocytes % 9 % Monocytes % 6 % Eosinophils % 0 % Basophils % 0 % Neutrophils # 1.8 (1.3-7.7) k/uL Lymphocytes # 0.2 L (1.0-4.8) k/uL Monocytes # 0.1 (0-1.0) k/uL Eosinophils # 0.0 (0-0.7) k/uL Basophils # 0.0 (0-0.2) k/uL PT 10.9 (10.0-12.5) sec INR 1.0 (<1.2) APTT 21.5 L (22.0-30.0) sec Sodium 132 L (137-145) mmol/L Potassium 4.6 (3.5-5.1) mmol/L Chloride 99 (98-107) mmol/L Carbon Dioxide 21 L (22-30) mmol/L Anion Gap 12 mmol/L BUN 23 H (9-20) mg/dL Creatinine 1.27 H (0.66-1.25) mg/dL Est GFR (CKD-EPI)AfAm 71 (>60 ml/min/1.73 sqM) Est GFR (CKD-EPI)NonAf 61 (>60 ml/min/1.73 sqM) Glucose 237 H (74-99) mg/dL Calcium 8.8 (8.4-10.2) mg/dL Magnesium 1.4 L (1.6-2.3) mg/dL Total Bilirubin 0.9 (0.2-1.3) mg/dL AST 27 (17-59) U/L ALT 57 H (4-49) U/L Alkaline Phosphatase 78 (38-126) U/L Troponin I (0.000-0.034) ng/mL Total Protein 6.2 L (6.3-8.2) g/dL Albumin 3.6 (3.5-5.0) g/dL 12/19/22 Range/Units 15:22 WBC (3.8-10.6) k/uL RBC (4.30-5.90) m/uL Hgb (13.0-17.5) gm/dL Hct (39.0-53.0) % MCV (80.0-100.0) fL MCH (25.0-35.0) pg MCHC (31.0-37.0) g/dL RDW (11.5-15.5) % Plt Count (150-450) k/uL MPV Neutrophils % % Lymphocytes % % Monocytes % % Eosinophils % % Basophils % % Neutrophils # (1.3-7.7) k/uL Lymphocytes # (1.0-4.8) k/uL Monocytes # (0-1.0) k/uL Eosinophils # (0-0.7) k/uL Basophils # (0-0.2) k/uL PT (10.0-12.5) sec INR (<1.2) APTT (22.0-30.0) sec Sodium (137-145) mmol/L Potassium (3.5-5.1) mmol/L Chloride (98-107) mmol/L Carbon Dioxide (22-30) mmol/L Anion Gap mmol/L BUN (9-20) mg/dL Creatinine (0.66-1.25) mg/dL Est GFR (CKD-EPI)AfAm (>60 ml/min/1.73 sqM) Est GFR (CKD-EPI)NonAf (>60 ml/min/1.73 sqM) Glucose (74-99) mg/dL Calcium (8.4-10.2) mg/dL Magnesium (1.6-2.3) mg/dL Total Bilirubin (0.2-1.3) mg/dL AST (17-59) U/L ALT (4-49) U/L Alkaline Phosphatase (38-126) U/L Troponin I <0.012 (0.000-0.034) ng/mL Total Protein (6.3-8.2) g/dL Albumin (3.5-5.0) g/dL Disposition <Ricky Gomez - Last Filed: 12/19/22 18:12> Time of Disposition: 18:14 <Kike Modi - Last Filed: 12/20/22 06:16> Clinical Impression: Syncope, Dehydration, Hypotension Disposition: ADMITTED IP TO THIS HOSP Condition: Fair
[2022-12-19 15:37] LABS: HCT 33.5 % (39.0-53.0); HGB 11.9 gm/dL (13.0-17.5); MCV 90.4 fL (80.0-100.0); WBC 2.2 k/uL (3.8-10.6)
[2022-12-19 15:38] LABS: Basophils % (A) 0 %; Eosinophils % (A) 0 %; Lymphocytes # (A) 0.2 k/uL (1.0-4.8); Lymphocytes % (A) 9 %; MCH 32.2 pg (25.0-35.0); MCHC 35.7 g/dL (31.0-37.0); Mean Platelet Volume 7.8; Monocytes # (A) 0.1 k/uL (0-1.0); Monocytes % (A) 6 %; Neutrophils # (A) 1.8 k/uL (1.3-7.7); Neutrophils % (A) 81 %; Platelet Count 122 k/uL (150-450); RDW 15.8 % (11.5-15.5)
[2022-12-19 15:45] LABS: ALT 57 U/L (4-49); AST 27 U/L (17-59); African American GFR (CKD) 71 (>60 ml/min/1.73 sqM); Albumin 3.6 g/dL (3.5-5.0); Alkaline Phosphatase 78 U/L (38-126); Anion Gap 12 mmol/L; Blood Urea Nitrogen 23 mg/dL (9-20); Calcium 8.8 mg/dL (8.4-10.2); Carbon Dioxide 21 mmol/L (22-30); Chloride 99 mmol/L (98-107); Glucose 237 mg/dL (74-99); Magnesium 1.4 mg/dL (1.6-2.3); Non-African American GFR(CKD) 61 (>60 ml/min/1.73 sqM); Potassium 4.6 mmol/L (3.5-5.1); Sodium 132 mmol/L (137-145); Total Bilirubin 0.9 mg/dL (0.2-1.3); Total Protein 6.2 g/dL (6.3-8.2)
[2022-12-19 15:57] LABS: Prothrombin Time 10.9 sec (10.0-12.5)
[2022-12-19 16:52] LABS: Partial Thromboplastin Time 21.5 sec (22.0-30.0)
--- NOTE | 2022-12-19 16:52 | XR ---
EXAMINATION TYPE: XR chest 2V DATE OF EXAM: 12/19/2022 3:35 PM CLINICAL INDICATION:Male, 62 years old with history of syncope; [facility] COMPARISON: 09/08/2022 TECHNIQUE: XR chest 2V Frontal and lateral views of the chest. FINDINGS: Lines/Tubes: EKG leads overlie the chest. No indwelling lines are seen. Lungs/Pleura: There is no evidence of pleural effusion, focal consolidation, or pneumothorax. Pulmonary vascularity: Unremarkable. Heart/mediastinum: Cardiomediastinal silhouette is unremarkable. Musculoskeletal: No acute osseous pathology. Multilevel endplate spurring in the spine. Other findings: None IMPRESSION: No acute cardiopulmonary disease/process.
[2022-12-19] MEDS ORDERED: SODIUM CHLORIDE 0.9% 500 ML 500 ML IV ONE ×2 (16:54→17:35)
[2022-12-19] MEDS ORDERED: ONDANSETRON 4 MG/2 ML VIAL IVP PRN (18:11)
[2022-12-19] MEDS ORDERED: NALOXONE 0.4 MG/ML 1 ML VIAL IV PRN (18:11)
[2022-12-19] MEDS ORDERED: ACETAMINOPHEN TAB 325 MG TAB PO PRN (18:11)
[2022-12-19] MEDS: SODIUM CHLORIDE 0.9% 1,000 ML IV SCH (18:39)
[2022-12-19 20:55] LABS: Appearance,Urine Clear (Clear); Bilirubin,Urine Negative (Negative); Blood,Urine Negative (Negative); Color,Urine Colorless; Glucose,Urine (UA) Negative (Negative); Ketones,Urine Negative (Negative); Leukocyte Esterase,Urine Negative (Negative); Nitrite,Urine Negative (Negative); Protein,Urine Negative (Negative); Urobilinogen,Urine <2.0 mg/dL (<2.0)
[2022-12-19] MEDS ORDERED: amLODIPine 10 MG TAB PO SCH (22:00)
[2022-12-19] MEDS: ATORVASTATIN 20 MG TAB PO SCH (22:20)
[2022-12-19] MEDS: AMIODARONE 200 MG TAB PO SCH (22:20)
[2022-12-19] MEDS: APIXABAN 5 MG TAB PO SCH (22:20)
[2022-12-19] MEDS: MONTELUKAST 10 MG TAB PO SCH (22:20)
[2022-12-20 06:23] LABS: Glucose,Whole Blood 172 mg/dL (70-110)
[2022-12-20] MEDS: IPRATROPIUM 0.5 MG/2.5 ML NEBU INHALATION SCH ×4 (08:46→21:19)
[2022-12-20] MEDS: SYMBICORT 80-4.5 MCG INHALER INHALATION SCH ×2 (08:46→21:19)
[2022-12-20] MEDS ORDERED: LISINOPRIL-HCTZ 10-12.5 MG 1 EACH TAB PO SCH (09:00)
[2022-12-20] MEDS ORDERED: NON FORMULARY DRUG (Glucosamine Sulfate 500 MG Cap) PO SCH (09:00)
[2022-12-20] MEDS: APIXABAN 5 MG TAB PO SCH ×2 (09:44→20:38)
[2022-12-20] MEDS: SODIUM CHLORIDE 0.9% 1,000 ML IV SCH (09:44)
[2022-12-20] MEDS: atenoloL 25 MG TAB PO SCH (09:45)
[2022-12-20 11:19] LABS: Glucose,Whole Blood 166 mg/dL (70-110)
[2022-12-20] MEDS ORDERED: CALCIUM CARBONATE 500 MG CHEWABLE PO PRN (11:26)
[2022-12-20] MEDS ORDERED: ALPRAZolam 0.25 MG TAB PO PRN (11:26)
[2022-12-20] MEDS ORDERED: LACTULOSE 20 GM/30 ML CUP PO PRN (11:26)
[2022-12-20] MEDS: ENOXAPARIN 40 MG/0.4 ML SYRINGE SQ SCH ×2 (13:14→17:37)
--- NOTE | 2022-12-20 14:12 | P.HPIM ---
History of Present Illness H&P Date: 12/20/22 Chief Complaint: Past out This is a very pleasant 62-year-old patient, follows with Dr. Sullivan. Chronic stable medical conditions include atrial flutter fibrillation, diabetes, hypertension, hyperlipidemia, osteoarthritis, kidney stones, varicose veins, atrial flutter fibrillation for which she is on eliquis, Patient was diagnosed with esophageal cancer in September of this year., Following EGD by Dr. Anoop Faye. Invasive poorly differentiated adenocarcinoma. Being followed by Dr. Cope oncologist and Dr. Alcaraz radiation oncologist. Started on chemotherapy. Patient does take full liquid diet and able to chew food. Yesterday patient had a home paraprofessional for his treatment. Like shake in the morning and went to the event. Did not eat any breakfast otherwise. Normally has a lunch at noon. Around 1:30 started getting dizzy lightheaded. Also some water. Then sat down. Then patient passed out after getting lightheaded and dizzy. He was looking at the people he was sitting with. No chest pain or palpitation. Patient blood pressure was found to be low at 91/55 by the EMS. And a pulse of 75. Was given IV fluids in the ER. Patient has been eating less in the last few weeks. Has some decrease in weight. This morning feels better. Sitting up in a chair. Daughter the bedside. Patient's creatinine noted to be elevated at 1.27. Review of systems: GEN.: Tired EYES: None HEENT: None NECK: None RESPIRATORY: None CARDIOVASCULAR: None GASTROINTESTINAL: None GENITOURINARY: None MUSCULOSKELETAL: None LYMPHATICS: None HEMATOLOGICAL: None PSYCHIATRY: None NEUROLOGICAL: None. 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 Triple seasickness a day. No alcohol. Physical examination: VITAL SIGNS: 98.4, 72, 18, 99/60, 98% room air upon presentation GENERAL: BMI 37.8, sitting on chair awake comfortable. EYES: Pupils equal. Conjunctiva normal. HEENT: External appearance of nose and ears normal, oral cavity grossly normal. NECK: JVD not raised; masses not palpable. HEART: First and second heart sounds are normal; no edema. LUNGS: Respiratory rate normal; clear to auscultation. ABDOMEN: Soft, nontender, liver spleen not palpable, no masses palpable. PSYCH: Alert and oriented x3; mood and affect normal. MUSCULOSKELETAL:No Clubbing/cyanosis;muscles-grossly intact NEUROLOGICAL: Cranial nerves grossly intact; no facial asymmetry, power and sensation grossly intact. LYMPHATICS: No lymph nodes palpable in the axilla and neck INVESTIGATIONS, reviewed in the clinical context: White count 2.2 hemoglobin 11.9 platelets 122 sodium 132 potassium 4.6 BUN 23 creatinine 1.27 magnesia 1.4 UA: Negative EKG tracing personally reviewed by me-normal sinus rhythm Chest x-ray film personally reviewed by me-borderline cardiomegaly Assessment and plan: -Syncope secondary to hypotension, from decreased oral intake. Patient has not had his breakfast and at also missed his lunch. Cutback dose of amlodipine to 2.5 mg at night. IV fluids. -Acute kidney injury, from decreased oral intake. Note patient is also on chemotherapy IV fluids. Stop lisinopril hydrochlorothiazide. 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 Diagnosed in September 2022. Being followed by Dr. Cope from oncology and Dr. Rey Alcaraz from radiation oncology. Getting chemotherapy and radiation treatment. -Hypotension in a patient with known essential hypertension Cutback amlodipine to 2.5 mg at night. Tenormin 25 mg a day. Stop lisinopril hydrochlorothiazide -Paroxysmal atrial flutter fibrillation currently in sinus rhythm Tenormin 25 mg a day. Eliquis 5 mg twice a day Amiodarone -GERD Protonix 40 mg daily at bedtime -COPD in a prior smoker Continue home inhaler -Hyperlipidemia Lipitor 20 mg daily at bedtime Stop lisinopril HCl. Cutback amlodipine. IV fluids. Repeat labs. Spoke to the patient and daughter the bedside. Spoke to Dr. Rey Alcaraz from radiation oncology. Hold after his radiation treatment. Plan for another treatment t omorrow. Telemetry to rule out any arrhythmia. Past Medical History Past Medical History: Atrial Fibrillation, Atrial Flutter, Cancer, Diabetes Mellitus, Hyperlipidemia, Hypertension, Osteoarthritis (OA), Respiratory Disorder, Supraventricular Tachycardia (SVT) Additional Past Medical History / Comment(s): HX KIDNEY STONES. HX TRACH EOBRONCHITIS (HOSPITALIZED JULY 2019). Varicose veins. being tx for resp illness at this time- inhalers and trelegy, singulair. still r/o. blood clot in heart 2020- eliquis. currently has the feeling that food gets stuck at the bottom. steroid shot in knee and thumb. neuropathy in feet History of Any Multi-Drug Resistant Organisms: None Reported Past Surgical History: No Surgical Hx Reported Additional Past Surgical History / Comment(s): WISDOM TEETH EXTRACTIONS, cardioversion with WALLY. colonoscopy, Past Anesthesia/Blood Transfusion Reactions: No Reported Reaction Past Psychological History: Anxiety Smoking Status: Former smoker Past Alcohol Use History: None Reported Past Drug Use History: None Reported - Past Family History Mother Family Medical History: Diabetes Mellitus Father Family Medical History: Coronary Artery Disease (CAD) Medications and Allergies Home Medications Medication Instructions Recorded Confirmed Type Lisinopril-Hctz 10-12.5 mg 1 tab PO DAILY 06/28/16 12/19/22 History [Zestoretic 10-12.5] Atorvastatin Calcium [Lipitor] 20 mg PO HS 08/03/19 12/19/22 History Apixaban [Eliquis] 5 mg PO BID #60 tab 08/06/19 12/19/22 Rx Mv-Min/Folic/K1/Lycopen/Lutein 1 tab PO HS 11/05/19 12/19/22 History [Centrum Silver Men Tablet] amLODIPine [Norvasc] 10 mg PO HS 07/15/21 12/19/22 History Dulaglutide [Trulicity] 1.5 mg SQ WE 07/14/22 12/19/22 History Pantoprazole [Protonix] 40 mg PO HS 07/14/22 12/19/22 History atenoloL [Tenormin] 25 mg PO DAILY 07/14/22 12/19/22 History Fluticasone/Umeclidin/Vilanter 1 puff INHALATION RT-DAILY 09/21/22 12/19/22 History [Trelegy Ellipta 200-62.5-25] Montelukast [Singulair] 10 mg PO HS 09/21/22 12/19/22 History Amiodarone [Cordarone] 200 mg PO HS 12/19/22 12/19/22 History Glucosamine Sulfate 500 mg PO BID 12/19/22 12/19/22 History Allergies Allergy/AdvReac Type Severity Reaction Status Date / Time No Known Allergies Allergy Verified 12/19/22 15:10 Physical Exam Vitals: Vital Signs Temp Pulse Pulse Resp BP BP BP 12/20/22 08:57 72 12/20/22 08:47 70 12/20/22 04:00 65 16 106/68 12/20/22 00:00 98.4 F 62 17 105/60 12/19/22 21:07 99.2 F 68 18 115/65 12/19/22 20:00 69 21 92/59 12/19/22 19:30 67 12 102/67 12/19/22 19:00 67 19 101/62 12/19/22 18:30 66 16 87/55 12/19/22 18:00 70 17 88/50 12/19/22 17:31 67 18 89/55 12/19/22 17:30 68 16 86/47 12/19/22 17:17 98.2 F 70 18 96/59 86/47 12/19/22 17:00 69 16 92/58 12/19/22 16:30 70 18 92/58 12/19/22 16:29 68 18 92/58 12/19/22 16:00 70 18 99/60 12/19/22 15:30 99/60 12/19/22 15:07 99/60 12/19/22 15:04 98.4 F 72 18 99/60 BP Pulse Ox 12/20/22 08:57 12/20/22 08:47 12/20/22 04:00 95 12/20/22 00:00 99 12/19/22 21:07 97 12/19/22 20:00 97 12/19/22 19:30 98 12/19/22 19:00 99 12/19/22 18:30 12/19/22 18:00 96 12/19/22 17:31 97 12/19/22 17:30 96 12/19/22 17:17 94/54 96 12/19/22 17:00 96 12/19/22 16:30 98 12/19/22 16:29 97 12/19/22 16:00 97 12/19/22 15:30 12/19/22 15:07 99 12/19/22 15:04 98 Intake and Output 12/19/22 12/20/22 12/20/22 22:59 06:59 14:59 Intake Total 0 Balance 0 Intake: Oral 0 Other: # Voids 1 1 Weight 126.552 kg Results CBC & Chem 7: 12/19/22 15:22 12/19/22 15:22 Labs: Abnormal Lab Results - Last 24 Hours (Table) 12/19/22 12/19/22 12/19/22 Range/Units 15:22 15:22 15:22 WBC 2.2 L (3.8-10.6) k/uL RBC 3.70 L (4.30-5.90) m/uL Hgb 11.9 L (13.0-17.5) gm/dL Hct 33.5 L (39.0-53.0) % RDW 15.8 H (11.5-15.5) % Plt Count 122 L (150-450) k/uL Lymphocytes # 0.2 L (1.0-4.8) k/uL APTT 21.5 L (22.0-30.0) sec Sodium 132 L (137-145) mmol/L Carbon Dioxide 21 L (22-30) mmol/L BUN 23 H (9-20) mg/dL Creatinine 1.27 H (0.66-1.25) mg/dL Glucose 237 H (74-99) mg/dL POC Glucose (mg/dL) (70-110) mg/dL Magnesium 1.4 L (1.6-2.3) mg/dL ALT 57 H (4-49) U/L Total Protein 6.2 L (6.3-8.2) g/dL 12/20/22 Range/Units 06:21 WBC (3.8-10.6) k/uL RBC (4.30-5.90) m/uL Hgb (13.0-17.5) gm/dL Hct (39.0-53.0) % RDW (11.5-15.5) % Plt Count (150-450) k/uL Lymphocytes # (1.0-4.8) k/uL APTT (22.0-30.0) sec Sodium (137-145) mmol/L Carbon Dioxide (22-30) mmol/L BUN (9-20) mg/dL Creatinine (0.66-1.25) mg/dL Glucose (74-99) mg/dL POC Glucose (mg/dL) 172 H (70-110) mg/dL Magnesium (1.6-2.3) mg/dL ALT (4-49) U/L Total Protein (6.3-8.2) g/dL Thrombosis Risk Factor Assmnt - Choose All That Apply Each Factor Represents 1 point: Obesity (BMI >25), Varicose veins Other Risk Factors: No Thrombosis Risk Factor Assessment Total Risk Factor Score: 2 Thrombosis Risk Factor Assessment Level: Low Risk
[2022-12-20 16:26] LABS: Glucose,Whole Blood 238 mg/dL (70-110)
[2022-12-20 20:16] LABS: Glucose,Whole Blood 209 mg/dL (70-110)
--- NOTE | 2022-12-20 20:32 | P.CONS ---
History of Present Illness - Reason for Consult Consult date: 12/20/22 eso adenocarcinoma Requesting physician: Kike Modi - Chief Complaint syncopy - History of Present Illness Mr Marks this is a pleasant male pt of Dr. Cope with controlled medical problems at baseline. He initially presented to his PCP with c/o dysphagia, specifically for boluses appearing to stick in the middle of the chest before going down. Started around 03/01 and had been slowly progressive. He was referred to GI, had EGD 09/24/22. This showed an ulcerated mass in the distal esophagus, biopsies from the distal esophagus and gastric cardia showed invasive poorly differentiated adenocarcinoma. He had lost about 60lbs in about 8 mo, no Hx of malignancy. He was tolerant of oral intake as long as he chewed very well. Staging PET showed uptake at the primary site, and also in 1 lymph node at the gastro- pancreatic ligament. It was felt that the patient was a candidate for curative treatment. He was recommended concurrent chemoradiation. He started chemotherapy with weekly carboplatin and Taxol on 11/15/22 along with RT. He has 3 radiation to complete and 1 more chemo. Pt has done excellent with treatment. He was at a benefit for himself, reports that he had not ate or drank well the previous 24 hours because of nerves/worry. He was talking with friends and he woke up on the ground with everyone looking at him. He states he was only out for a few seconds, denied hitting his head, no pain to report. He feels much better after hydration, he has ambulated multiple times in the halls independently, denies any feelings of dizziness or feeling faint. No prior F, chills, N, V, D, swelling or pain. He reports having some of his BP meds ad justed. Review of Systems 10 point ROS is neg Past Medical History Past Medical History: Atrial Fibrillation, Atrial Flutter, Cancer, Diabetes Mellitus, Hyperlipidemia, Hypertension, Osteoarthritis (OA), Respiratory Disorder, Supraventricular Tachycardia (SVT) Additional Past Medical History / Comment(s): HX KIDNEY STONES. HX TRACHEOBRONCHITIS (HOSPITALIZED JULY 2019). Varicose veins. being tx for resp illness at this time- inhalers and trelegy, singulair. still r/o. blood clot in heart 2019- eliquis. currently has the feeling that food gets stuck at the bottom. steroid shot in knee and thumb. neuropathy in feet History of Any Multi-Drug Resistant Organisms: None Reported Past Surgical History: No Surgical Hx Reported Additional Past Surgical History / Comment(s): WISDOM TEETH EXTRACTIONS, cardioversion with WALLY. colonoscopy, Past Anesthesia/Blood Transfusion Reactions: No Reported Reaction Past Psychological History: Anxiety Smoking Status: Former smoker Past Alcohol Use History: None Reported Past Drug Use History: None Reported - Past Family History Mother Family Medical History: Diabetes Mellitus Father Family Medical History: Coronary Artery Disease (CAD) Medications and Allergies Home Medications Medication Instructions Recorded Confirmed Type Lisinopril-Hctz 10-12.5 mg 1 tab PO DAILY 06/28/16 12/19/22 History [Zestoretic 10-12.5] Atorvastatin Calcium [Lipitor] 20 mg PO HS 08/03/19 12/19/22 History Apixaban [Eliquis] 5 mg PO BID #60 tab 08/06/19 12/19/22 Rx Mv-Min/Folic/K1/Lycopen/Lutein 1 tab PO HS 11/05/19 12/19/22 History [Centrum Silver Men Tablet] amLODIPine [Norvasc] 10 mg PO HS 07/15/21 12/19/22 History Dulaglutide [Trulicity] 1.5 mg SQ WE 07/14/22 12/19/22 History Pantoprazole [Protonix] 40 mg PO HS 07/14/22 12/19/22 History atenoloL [Tenormin] 25 mg PO DAILY 07/14/22 12/19/22 History Fluticasone/Umeclidin/Vilanter 1 puff INHALATION RT-DAILY 09/21/22 12/19/22 History [Trelegy Ellipta 200-62.5-25] Montelukast [Singulair] 10 mg PO HS 09/21/22 12/19/22 History Amiodarone [Cordarone] 200 mg PO HS 12/19/22 12/19/22 History Glucosamine Sulfate 500 mg PO BID 12/19/22 12/19/22 History Allergies Allergy/AdvReac Type Severity Reaction Status Date / Time No Known Allergies Allergy Verified 12/19/22 15:10 Physical Exam Vitals: Vital Signs Temp Pulse Pulse Resp BP BP BP 12/20/22 08:57 72 12/20/22 08:47 70 12/20/22 08:00 98.6 F 68 16 111/65 12/20/22 04:00 65 16 106/68 12/20/22 00:00 98.4 F 62 17 105/60 12/19/22 21:07 99.2 F 68 18 115/65 12/19/22 20:00 69 21 92/59 12/19/22 19:30 67 12 102/67 12/19/22 19:00 67 19 101/62 12/19/22 18:30 66 16 87/55 12/19/22 18:00 70 17 88/50 12/19/22 17:31 67 18 89/55 12/19/22 17:30 68 16 86/47 12/19/22 17:17 98.2 F 70 18 96/59 86/47 12/19/22 17:00 69 16 92/58 12/19/22 16:30 70 18 92/58 12/19/22 16:29 68 18 92/58 12/19/22 16:00 70 18 99/60 12/19/22 15:30 99/60 12/19/22 15:07 99/60 12/19/22 15:04 98.4 F 72 18 99/60 BP Pulse Ox 12/20/22 08:57 12/20/22 08:47 12/20/22 08:00 94 L 12/20/22 04:00 95 12/20/22 00:00 99 12/19/22 21:07 97 12/19/22 20:00 97 12/19/22 19:30 98 12/19/22 19:00 99 12/19/22 18:30 12/19/22 18:00 96 12/19/22 17:31 97 12/19/22 17:30 96 12/19/22 17:17 94/54 96 12/19/22 17:00 96 12/19/22 16:30 98 12/19/22 16:29 97 12/19/22 16:00 97 12/19/22 15:30 12/19/22 15:07 99 12/19/22 15:04 98 Intake and Output 12/19/22 12/20/22 12/20/22 22:59 06:59 14:59 Intake Total 0 Balance 0 Intake: Oral 0 Other: # Voids 1 1 Weight 126.552 kg - Constitutional General appearance: cooperative, no acute distress, obese - EENT Eyes: anicteric sclerae, EOMI ENT: hearing grossly normal, normal oropharynx - Neck Neck: no lymphadenopathy - Respiratory Respiratory: bilateral: CTA - Cardiovascular Rhythm: regular Heart sounds: normal: S1, S2 Abnormal Heart Sounds: no systolic murmur, no diastolic murmur, no rub, no S3 Gallop, no S4 Gallop, no click, no other leg Peripheral Edema: bilateral: None - Gastrointestinal General gastrointestinal: no absent bowel sounds, no decreased bowel sounds, no distended, no hepatomegaly, no hyperactive bowel sounds, normal bowel sounds, no organomegaly, no rigid, no scaphoid, soft, no splenomegaly, no tenderness, no umbilical hernia, no ventral hernia - Integumentary Integumentary: normal - Neurologic Neurologic: CNII-XII intact - Musculoskeletal Musculoskeletal: strength equal bilaterally - Psychiatric Psychiatric: A&O x's 3, appropriate affect, intact judgment & insight Results CBC & Chem 7: 12/19/22 15:22 12/19/22 15:22 Labs: Abnormal Lab Results - Last 24 Hours (Table) 12/19/22 12/19/22 12/19/22 Range/Units 15:22 15:22 15:22 WBC 2.2 L (3.8-10.6) k/uL RBC 3.70 L (4.30-5.90) m/uL Hgb 11.9 L (13.0-17.5) gm/dL Hct 33.5 L (39.0-53.0) % RDW 15.8 H (11.5-15.5) % Plt Count 122 L (150-450) k/uL Lymphocytes # 0.2 L (1.0-4.8) k/uL APTT 21.5 L (22.0-30.0) sec Sodium 132 L (137-145) mmol/L Carbon Dioxide 21 L (22-30) mmol/L BUN 23 H (9-20) mg/dL Creatinine 1.27 H (0.66-1.25) mg/dL Glucose 237 H (74-99) mg/dL POC Glucose (mg/dL) (70-110) mg/dL Magnesium 1.4 L (1.6-2.3) mg/dL ALT 57 H (4-49) U/L Total Protein 6.2 L (6.3-8.2) g/dL 12/20/22 12/20/22 Range/Units 06:21 11:17 WBC (3.8-10.6) k/uL RBC (4.30-5.90) m/uL Hgb (13.0-17.5) gm/dL Hct (39.0-53.0) % RDW (11.5-15.5) % Plt Count (150-450) k/uL Lymphocytes # (1.0-4.8) k/uL APTT (22.0-30.0) sec Sodium (137-145) mmol/L Carbon Dioxide (22-30) mmol/L BUN (9-20) mg/dL Creatinine (0.66-1.25) mg/dL Glucose (74-99) mg/dL POC Glucose (mg/dL) 172 H 166 H (70-110) mg/dL Magnesium (1.6-2.3) mg/dL ALT (4-49) U/L Total Protein (6.3-8.2) g/dL Chest x-ray: report reviewed Assessment and Plan (1) Dehydration Current Visit: Yes Status: Acute Priority: High Code(s): E86.0 - DEHYDRATION SNOMED Code(s): 70401821 (2) Hypotension Current Visit: Yes Status: Acute Priority: High Code(s): I95.9 - HYPOTENSION, UNSPECIFIED SNOMED Code(s): 40910482 (3) Syncope Current Visit: Yes Status: Acute Priority: High Code(s): R55 - SYNCOPE AND COLLAPSE SNOMED Code(s): 905164226 (4) Esophageal adenocarcinoma Current Visit: Yes Status: Acute Code(s): C15.9 - MALIGNANT NEOPLASM OF ESOPHAGUS, UNSPECIFIED SNOMED Code(s): 469327050 (5) Antineoplastic chemotherapy induced pancytopenia Current Visit: Yes Status: Acute Code(s): D61.810 - ANTINEOPLASTIC CHEMOTHERAPY INDUCED PANCYTOPENIA; T45.1X5A - ADVERSE EFFECT OF ANTINEOPLASTIC AND IMMUNOSUP DRUGS, INIT SNOMED Code(s): 346082786529904 Plan: Hypotension, syncopy, dehydration -Pt reports poor oral intake, fluid intake prior to episode. BUN/Cr were elevated on admit, hypotensive. Pt doing much better after hydration. He is eating and drinking more normal now -Cardiology following, making med adjustments Esophageal adenocarcinoma -Pt has done excellent with treatment so far -Pt treatment is with curative intent -Plan is complete last chemo and 3 radiation treatments, he will then be sent on to Surgery Chemo induced pancytopenia -Mild decrease in counts, no transfusions needed -WBC 2.2, ANC nomal 1.8., no GCSF Pt is ok from Hem/Onc standpoint for discharge once cleared by Attending and Consulting Physicians
[2022-12-20] MEDS: MONTELUKAST 10 MG TAB PO SCH (20:38)
[2022-12-20] MEDS: ATORVASTATIN 20 MG TAB PO SCH (20:38)
[2022-12-20] MEDS: AMIODARONE 200 MG TAB PO SCH (20:38)
[2022-12-20] MEDS ORDERED: VIT A,C & E-LUTEIN-MINERALS 1 EACH TAB PO SCH (21:00)
[2022-12-20] MEDS ORDERED: PANTOPRAZOLE 40 MG TABLET PO SCH (21:00)
[2022-12-20] MEDS ORDERED: amLODIPine 2.5 MG TAB PO SCH (21:00)
[2022-12-20 23:44] VITALS: RESP 16
[2022-12-21] MEDS: SODIUM CHLORIDE 0.9% 1,000 ML IV SCH ×2 (06:04→06:26)
[2022-12-21 06:23] LABS: Glucose,Whole Blood 150 mg/dL (70-110)
[2022-12-21] MEDS: SYMBICORT 80-4.5 MCG INHALER INHALATION SCH (08:22)
[2022-12-21] MEDS: IPRATROPIUM 0.5 MG/2.5 ML NEBU INHALATION SCH ×2 (08:22→11:54)
[2022-12-21] MEDS: APIXABAN 5 MG TAB PO SCH (08:47)
[2022-12-21] MEDS: atenoloL 25 MG TAB PO SCH (08:47)
[2022-12-21 08:51] LABS: African American GFR (CKD) >90 (>60 ml/min/1.73 sqM); Anion Gap 10 mmol/L; Blood Urea Nitrogen 10 mg/dL (9-20); Calcium 8.5 mg/dL (8.4-10.2); Carbon Dioxide 22 mmol/L (22-30); Chloride 103 mmol/L (98-107); Glucose 148 mg/dL (74-99); Non-African American GFR(CKD) >90 (>60 ml/min/1.73 sqM); Potassium 4.1 mmol/L (3.5-5.1); Sodium 135 mmol/L (137-145)
[2022-12-21 11:29] VITALS: TEMP 98.3
[2022-12-21 11:53] LABS: Glucose,Whole Blood 156 mg/dL (70-110)
[2022-12-21 14:55] VITALS: BP 112/71; PULSE 68
--- NOTE | 2022-12-21 20:05 | P.DS ---
Providers Date of admission: 12/19/22 18:23 Expected date of discharge: 12/21/22 Attending physician: Nirmal Mcdaniel Consults: 12/19/22 18:13 Consult Physician Urgent Consulting Provider: Williams Cope Consult Reason/Comments: Esophageal cancer Do you want consulting provider notified?: Yes Primary care physician: Major Hospital Course: Chief Complaint: Past out This is a very pleasant 62-year-old patient, follows with Dr. Sullivan. Chronic stable medical conditions include atrial flutter fibrillation, diabetes, hypertension, hyperlipidemia, osteoarthritis, kidney stones, varicose veins, atrial flutter fibrillation for which she is on eliquis, Patient was diagnosed with esophageal cancer in September of this year., Following EGD by Dr. Anoop Faye. Invasive poorly differentiated adenocarcinoma. Being followed by Dr. Cope oncologist and Dr. Alcaraz radiation oncologist. Started on chemotherapy. Patient does take full liquid diet and able to chew food. Yesterday patient had a personal health coach for his treatment. Like shake in the morning and went to the event. Did not eat any breakfast otherwise. Normally has a lunch at noon. Around 1:30 started getting dizzy lightheaded. Also some water. Then sat down. Then patient passed out after getting lightheaded and dizzy. He was looking at the people he was sitting with. No chest pain or palpitation. Patient blood pressure was found to be low at 91/55 by the EMS. And a pulse of 75. Was given IV fluids in the ER. Patient has been eating less in the last few weeks. Has some decrease in weight. This morning feels better. Sitting up in a chair. Daughter the bedside. Patient's creatinine noted to be elevated at 1.27. December 21: Patient doing much better. No dizziness no lightheadedness. Creatinine is come down 0.67. Lisinopril hydrochlorothiazide been discontinued. Dose of amlodipine cutback to 2.5. Patient did get radiation treatment today. Questions answered will follow-up with his treatment as scheduled. 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 Triple seasickness a day. No alcohol. Physical examination: VITAL SIGNS: 98.3, 71, 16, 1 28 x 71, 98% room air GENERAL: Sitting up, comfortable EYES: Pupils equal. Conjunctiva normal. HEENT: External appearance of nose and ears normal, oral cavity grossly normal. NECK: JVD not raised; masses not palpable. HEART: First and second heart sounds are normal; no edema. LUNGS: Respiratory rate normal; clear to auscultation. ABDOMEN: Soft, nontender, liver spleen not palpable, no masses palpable. PSYCH: Alert and oriented x3; mood and affect normal. MUSCULOSKELETAL:No Clubbing/cyanosis;muscles-grossly intact INVESTIGATIONS, reviewed in the clinical context: December 21: Potassium 4.1 creatinine 0.67 White count 2.2 hemoglobin 11.9 platelets 122 sodium 132 potassium 4.6 BUN 23 creatinine 1.27 magnesia 1.4 UA: Negative EKG tracing personally reviewed by me-normal sinus rhythm Chest x-ray film personally reviewed by me-borderline cardiomegaly Assessment and plan: -Syncope secondary to hypotension, from decreased oral intake. Patient has not had his breakfast and at also missed his lunch. Cutback dose of amlodipine to 2.5 mg at night. IV fluids. Stop lisinopril hydrochlorothiazide -Acute kidney injury, from decreased oral intake. Note patient is also on chemotherapy: Improved IV fluids. Stop lisinopril hydrochlorothiazide. 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 Diagnosed in September 2022. Being followed by Dr. Cope from oncology and Dr. Rey Alcaraz from radiation oncology. Getting chemotherapy and radiation treatment. -Hypotension in a patient with known essential hypertension Cutback amlodipine to 2.5 mg at night. Tenormin 25 mg a day. Stop lisinopril hydrochlorothiazide -Paroxysmal atrial flutter fibrillation currently in sinus rhythm Tenormin 25 mg a day. Eliquis 5 mg twice a day Amiodarone -GERD Protonix 40 mg daily at bedtime -COPD in a prior smoker Continue home inhaler -Hyperlipidemia Lipitor 20 mg daily at bedtime Disposition: Home Plan - Discharge Summary Discharge Rx Participant: No New Discharge Prescriptions: New amLODIPine [Norvasc] 2.5 mg PO HS #30 tab Continue Atorvastatin Calcium [Lipitor] 20 mg PO HS Apixaban [Eliquis] 5 mg PO BID #60 tab Mv-Min/Folic/K1/Lycopen/Lutein [Centrum Silver Men Tablet] 1 tab PO HS Pantoprazole [Protonix] 40 mg PO HS Dulaglutide [Trulicity] 1.5 mg SQ WE Fluticasone/Umeclidin/Vilanter [Trelegy Ellipta 200-62.5-25] 1 puff IN HALATION RT-DAILY atenoloL [Tenormin] 25 mg PO DAILY Montelukast [Singulair] 10 mg PO HS Glucosamine Sulfate 500 mg PO BID Amiodarone [Cordarone] 200 mg PO HS Discontinued Lisinopril-Hctz 10-12.5 mg [Zestoretic 10-12.5] 1 tab PO DAILY amLODIPine [Norvasc] 10 mg PO HS Discharge Medication List Atorvastatin Calcium [Lipitor] 20 mg PO HS 08/03/19 [History] Apixaban [Eliquis] 5 mg PO BID #60 tab 08/06/19 [Rx] Mv-Min/Folic/K1/Lycopen/Lutein [Centrum Silver Men Tablet] 1 tab PO HS 11/05/19 [History] Dulaglutide [Trulicity] 1.5 mg SQ WE 07/14/22 [History] Pantoprazole [Protonix] 40 mg PO HS 07/14/22 [History] atenoloL [Tenormin] 25 mg PO DAILY 07/14/22 [History] Fluticasone/Umeclidin/Vilanter [Trelegy Ellipta 200-62.5-25] 1 puff INHALATION RT-DAILY 09/21/22 [History] Montelukast [Singulair] 10 mg PO HS 09/21/22 [History] Amiodarone [Cordarone] 200 mg PO HS 12/19/22 [History] Glucosamine Sulfate 500 mg PO BID 12/19/22 [History] amLODIPine [Norvasc] 2.5 mg PO HS #30 tab 12/21/22 [Rx] Follow up Appointment(s)/Referral(s): Nba Sullivan DO [Primary Care Provider] - 1-2 days Patient Instructions/Handouts: Dehydration (DC), Syncope (DC) Discharge Disposition: HOME SELF-CARE
[2022-12-22] MEDS ORDERED: NON FORMULARY DRUG (Dulaglutide [Trulicity] 1.5 MG/0.5 ML Each) SQ SCH (09:00)
== END 2022-12-21 15:40 | disposition home or self-care (01) | DRG 640 ==
LOC: EC 15:02 → 3SCARD 18:23
PROVIDERS: ADMIT Hospitalist; ATTEND Hospitalist
PROC: DD001ZZ Beam Radiation of Esophagus using Photons 1 - 10 MeV (ICD-10-PCS; principal; 2022-12-21)
DX: E86.0 Dehydration (principal); D61.810 Antineoplastic chemotherapy induced pancytopenia; N17.9 Acute kidney failure, unspecified; C15.9 Malignant neoplasm of esophagus, unspecified; M19.90 Unspecified osteoarthritis, unspecified site; E11.42 Type 2 diabetes mellitus with diabetic polyneuropathy; E78.5 Hyperlipidemia, unspecified; F41.9 Anxiety disorder, unspecified; I10 Essential (primary) hypertension; I83.90 Asymptomatic varicose veins of unspecified lower extremity; J44.9 Chronic obstructive pulmonary disease, unspecified; K21.9 Gastro-esophageal reflux disease without esophagitis; I48.0 Paroxysmal atrial fibrillation; T45.1X5A Adverse effect of antineoplastic and immunosuppressive drugs, initial encounter; Z79.01 Long term (current) use of anticoagulants; Z79.899 Other long term (current) drug therapy; Z82.49 Family history of ischemic heart disease and other diseases of the circulatory system; Z83.3 Family history of diabetes mellitus; Z85.01 Personal history of malignant neoplasm of esophagus; Z87.442 Personal history of urinary calculi; Z92.3 Personal history of irradiation; Z87.891 Personal history of nicotine dependence
CPT/HCPCS: 36415; 71046; 77386; 80048; 80053; 81003; 83735; 84484; 85025; 85610; 85730; 93005; 94640; 96360; 96361; 99285

== ENCOUNTER → 2023-01-19 | Outpatient (CLI) | payer BC ==
[2023-01-19 10:53] LABS: African American GFR (CKD) >90 (>60 ml/min/1.73 sqM); Blood Urea Nitrogen 15 mg/dL (9-20); Non-African American GFR(CKD) >90 (>60 ml/min/1.73 sqM)
--- NOTE | 2023-01-19 12:25 | CT ---
EXAMINATION TYPE: CT ChestAbdPelvis w con DATE OF EXAM: 01/19/2023 COMPARISON: 08/04/2019 HISTORY: MALIGNANT NEOPLASM OF LOWER THIRD OF ESOPHAGUS CT DLP: 2575 mGycm CONTRAST: CT scan of the chest, abdomen and pelvis is performed with Oral Contrast and with IV Contrast, patien t injected with 100 mL of Isovue 300. CT Chest: LUNGS: The lungs are clear and free of infiltrate or atelectasis. No pulmonary nodule or mass is det ected. No pleural effusion or CT evidence of interstitial lung disease. MEDIASTINUM: Thoracic aorta is of normal caliber. The heart is not enlarged. No evidence for media stinal mass or adenopathy. HILAR STRUCTURES: No evidence for mass. No hilar adenopathy is appreciated. OTHER: No significant abnormality. CONTRAST CT ABDOMEN AND PELVIS FINDINGS: LIVER/GB: No calcified gallstones. No space occupying hepatic lesion. Biliary tree is of normal ca liber. PANCREAS: No inflammation. No distinct mass. SPLEEN: No splenic enlargement. No lesion seen. ADRENALS: No nodule. No thickening. KIDNEYS/BLADDER: No hydronephrosis. Nonobstructing left-sided nephrolithiasis measuring 5 mm and 3 m m. No disctinct renal mass. BOWEL: Normal appendix. Normal bowel caliber. No inflammation. GENITAL ORGANS: No gross abnormality. LYMPH NODES: No greater than 1cm abdominal or pelvic lymph nodes are appreciated. AORTA: No significant abnormality. OSSEOUS STRUCTURES: No significant abnormality is seen. OTHER: No significant additional abnormality is seen. IMPRESSION: 1. No evidence of tumor recurrence. No evidence of metastatic disease.
== END | disposition home or self-care (01) ==
LOC: RADCTMAIN 09:45
PROVIDERS: ATTEND Surgery
DX: C15.5 Malignant neoplasm of lower third of esophagus (principal)
CPT/HCPCS: 82565; 84520; 71260; 74177; 36415; Q9967

== ENCOUNTER → 2023-01-27 | Outpatient (CLI) | payer BC ==
--- NOTE | 2023-01-29 09:52 | PE ---
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 Images are reviewed on the computer in the coronal, a xial, and sagittal planes. Reconstructed rotating images are created on independent workstation and reviewed on the computer. A non-contrast CT is performed in conjunction with the PET scan. Glucose level 114 mg/dL CT DLP: 1143 mGycm, Automated exposure control for dose reduction was used. COMPARISON: CT 01/19/2023, PET/CT None, FINDINGS: Mediastinal SUV mean is 2.3. Hepatic parenchyma SUV mean is 3.6. SKULL BASE AND NECK: No suspicious radiotracer activity. CHEST, MEDIASTINUM, AND HILAR REGION: No suspicious radiotracer activity. ABDOMEN AND PELVIS: Mild uptake at the distal esophagus max SUV 7.2. MUSCULOSKELETAL STRUCTURES: No suspicious radiotracer activity. OTHER CT: Nonobstructing left renal calculi measuring up to 7 mm. No right renal calculi. Scattered c olonic diverticula. Right fat-containing inguinal hernia. The appendix demonstrates high density calc ifications compatible with appendicoliths. IMPRESSION: Mild uptake of the distal esophagus and a linear-like fashion. No obvious CT correlate. Findings coul d be physiologic. No additional sites of abnormal FDG activity visualized.
== END | disposition home or self-care (01) ==
LOC: RADPETMAIN 09:24
PROVIDERS: ATTEND Radiology Radiation Oncology
DX: C15.5 Malignant neoplasm of lower third of esophagus (principal)
CPT/HCPCS: 78815; A9552

== ENCOUNTER → 2023-08-01 | Outpatient (CLI) | payer BC ==
[2023-08-01 14:53] LABS: HCT 44.7 % (39.6-50.0); HGB 14.7 g/dL (13.0-17.0); MCH 30.6 pg (27.0-32.0); MCHC 32.9 g/dL (32.0-37.0); MCV 93.1 FL (80.0-97.0); Mean Platelet Volume 10.8 FL (9.5-12.2); NRBC Per 100 WBC 0 X 10*3/uL (0.00-0.01); Platelet Count 162 X 10*3/uL (140-440); RDW 16.2 % (11.5-14.5); WBC 5.65 X 10*3/uL (4.50-10.00)
[2023-08-01 15:28] LABS: ALT 87 U/L (10-49); AST 73 U/L (14-35); Albumin 4.2 g/dL (3.8-4.9); Albumin/Globulin Ratio 1.62 Ratio (1.60-3.17); Alkaline Phosphatase 342 U/L (41-126); Blood Urea Nitrogen 12.2 mg/dL (9.0-27.0); Calcium 9.6 mg/dL (8.7-10.3); Carbon Dioxide 28.1 mmol/L (21.6-31.8); Chloride 104 mmol/L (96-109); Chol/HDL Ratio 2.45 Ratio; Globulin 2.6 g/dL (1.6-3.3); Glucose 117 mg/dL (70-110); Potassium 4.9 mmol/L (3.5-5.5); Sodium 141 mmol/L (135-145); Total Bilirubin 0.9 mg/dL (0.3-1.2); Total Protein 6.8 g/dL (6.2-8.2); VLDL Calculation 17.06 mg/dL (5.00-40.00)
[2023-08-01 15:29] LABS: T4, Free (Free Thyroxine) 0.83 ng/dL (0.80-1.80)
== END | disposition home or self-care (01) ==
LOC: LABWHC1 10:15
PROVIDERS: ATTEND Internal Medicine
DX: E05.90 Thyrotoxicosis, unspecified without thyrotoxic crisis or storm (principal); E11.65 Type 2 diabetes mellitus with hyperglycemia
CPT/HCPCS: 36415; 80053; 80061; 82043; 82570; 83036; 84439; 84443; 84481; 85027

== ENCOUNTER → 2023-08-24 | Outpatient (CLI) | payer BC ==
[2023-08-24 11:19] LABS: African American GFR (CKD) >90 (>60 ml/min/1.73 sqM); Blood Urea Nitrogen 17 mg/dL (9-20); Non-African American GFR(CKD) >90 (>60 ml/min/1.73 sqM)
--- NOTE | 2023-08-24 14:38 | CT ---
EXAMINATION TYPE: CT ChestAbdPelvis w con DATE OF EXAM: 08/24/2023 COMPARISON: 05/26/2023 HISTORY: Esophageal ca CT DLP: 1879 mGycm CONTRAST: CT scan of the chest, abdomen and pelvis is performed with Oral Contrast and with IV Contrast, patien t injected with 100 mL of Isovue 300. CT Chest: LUNGS: The lungs are clear and free of infiltrate or atelectasis. No pulmonary nodule or mass is det ected. No pleural effusion or CT evidence of interstitial lung disease. MEDIASTINUM: Changes of esophagectomy and gastric pull-through procedure without evidence of recurre nt or residual disease. Thoracic aorta is of normal caliber. The heart is enlarged. No evidence for mediastinal mass or adenopathy. HILAR STRUCTURES: No evidence for mass. No hilar adenopathy is appreciated. OTHER: Right-sided rib abnormalities likely related to prior postoperative procedure. There is improv ed pleural thickening and pleural effusion since prior study. Small amount of residual intercostal fl uid noted. CONTRAST CT ABDOMEN AND PELVIS FINDINGS: LIVER/GB: No calcified gallstones. No space occupying hepatic lesion. Biliary tree is of normal ca liber. PANCREAS: No inflammation. No distinct mass. SPLEEN: No splenic enlargement. No lesion seen. ADRENALS: No nodule. No thickening. KIDNEYS/BLADDER: No hydronephrosis. Nonobstructing left-sided nephrolithiasis measuring up to 9.1 mm . No disctinct renal mass. Poor distention of the urinary bladder limiting evaluation. BOWEL: Normal appendix. Normal bowel caliber. No inflammation. GENITAL ORGANS: No gross abnormality. LYMPH NODES: No greater than 1cm abdominal or pelvic lymph nodes are appreciated. AORTA: No significant abnormality. OSSEOUS STRUCTURES: No significant abnormality is seen. OTHER: No significant additional abnormality is seen. IMPRESSION: 1. Changes of esophagectomy and gastric pull-through procedure without evidence of recurrent or resid ual disease.
== END | disposition home or self-care (01) ==
LOC: RADCTMAIN 10:23
PROVIDERS: ATTEND Internal Medicine Hematology & Oncology
DX: C15.5 Malignant neoplasm of lower third of esophagus (principal); I48.91 Unspecified atrial fibrillation; M12.9 Arthropathy, unspecified; I10 Essential (primary) hypertension; Z98.890 Other specified postprocedural states
CPT/HCPCS: 82565; 84520; 71260; 74177; 36415; Q9967

== ENCOUNTER → 2023-11-28 | Outpatient (CLI) | payer BC ==
[2023-11-28 11:00] LABS: African American GFR (CKD) >90 (>60 ml/min/1.73 sqM); Blood Urea Nitrogen 14 mg/dL (9-20); Non-African American GFR(CKD) >90 (>60 ml/min/1.73 sqM)
--- NOTE | 2023-11-28 13:07 | CT ---
EXAMINATION TYPE: CT ChestAbdPelvis w con CT DLP: 1561 mGycm, Automated exposure control for dose reduction was used. DATE OF EXAM: 11/28/2023 12:56 PM COMPARISON: CT chest abdomen and pelvis 08/24/2023, 01/19/2023, PET CT 01/27/2023. CLINICAL INDICATION:Male, 63 years old with history of C15.5 ESOPHAGEAL CANCER; [facility], f/u esophageal c a Technique: Multiple axial images of the chest, abdomen, and pelvis were obtained following the intrav enous administration of 100 mL Isovue-300. Oral contrast was administered. Two-dimensional coronal an d sagittal reconstructions were obtained. Findings: CHEST: LUNGS/ PLEURA: No pleural effusion, pneumothorax, or focal consolidation. Similar right lower lobe p osterior lateral pleural thickening with calcification. AIRWAY: Patent and unremarkable.. HEART: Mildly prominent in size. No pericardial effusion. Small coronary artery calcifications. MEDIASTINUM: No evidence of adenopathy. Postsurgical changes from esophagectomy with gastric pull-thr ough. No suspicious wall thickening identified. VASCULATURE: No aortic aneurysm. MUSCULOSKELETAL: No acute osseous abnormalities. No aggressive osseous lesion. [facility] of the thoracic s pine. SOFT TISSUES/LYMPH NODES: Unremarkable. LOWER NECK: No significant findings. ABDOMEN: ABDOMEN LIVER: Unremarkable GALLBLADDER AND BILE DUCTS: Unremarkable. PANCREAS: Unremarkable. SPLEEN: Unremarkable. ADRENAL GLANDS: Unremarkable. KIDNEYS AND URETERS: No evidence of hydronephrosis. Nonobstructive left renal calculi with the larges t measuring up to 9 mm. No right renal calculi. The kidneys enhance symmetrically. Contrast is demons trated within both collecting systems on the delayed phase. PELVIS BLADDER: Underdistended with circumferential wall thickening and some trace anterior fat stranding ag ain. REPRODUCTIVE: Coarse calcifications of the prostate gland are identified. ABDOMEN & PELVIS STOMACH AND BOWEL: Postsurgical changes from esophagectomy and gastric pull-through. No suspicious fo cheri wall thickening. Enteric contrast reaches the rectum. No evidence of bowel obstruction. PERITONEUM: No evidence of pneumoperitoneum or free fluid. VASCULATURE: No evidence of aortic aneurysm. MUSCULOSKELETAL: No acute osseous abnormalities. No aggressive osseous lesion. LYMPH NODES: No evidence for lymphadenopathy. SOFT TISSUE/ABDOMINAL WALL: Postsurgical changes of the midline anterior abdominal wall. IMPRESSION: 1. Post surgical changes of esophagectomy with gastric pull-through without evidence for recurrent r esidual disease. 2. Circumferential wall thickening of the urinary bladder with mild similar surrounding fat strandin g. May relate to under distention versus cystitis. Correlate with urinalysis. 3. Nonobstructive left renal calculi. [facility], , 11/28/2023 1:04 PM
== END | disposition home or self-care (01) ==
LOC: RADCTMAIN 10:24
PROVIDERS: ATTEND Internal Medicine Hematology & Oncology
CPT/HCPCS: 36415; 71260; 74177; 82565; 84520

== ENCOUNTER → 2024-02-29 | Outpatient (CLI) | payer BC ==
[2024-02-29 11:33] LABS: African American GFR (CKD) >90 (>60 ml/min/1.73 sqM); Blood Urea Nitrogen 14 mg/dL (9-20); Non-African American GFR(CKD) >90 (>60 ml/min/1.73 sqM)
--- NOTE | 2024-02-29 16:09 | CT ---
EXAMINATION TYPE: CT ChestAbdPelvis w con DATE OF EXAM: 02/29/2024 3:48 PM COMPARISON: 11/28/2023 CLINICAL INDICATION: Male, 63 years old with history of C15.5 ESOPHAGIAL CANCER; , Esophageal CA. Technique: CT ChestAbdPelvis w con; Multiple axial images were obtained. Two-dimensional coronal and sagittal reconstructions were obtained. Contrast used:100 ml mL of Isovue 300 with IV Contrast, (None if empty) Oral contrast used: with Oral Contrast CT DLP: 1504.7 mGycm, Automated exposure control for dose reduction was used. Findings: CHEST: LUNGS/ PLEURA: No pleural effusion, pneumothorax, or focal consolidation. Stable right lower lobe pos terior lateral pleural thickening with calcification. AIRWAY: Patent and unremarkable.. HEART: Mildly prominent in size. No pericardial effusion. Small coronary artery calcifications. MEDIASTINUM: No evidence of adenopathy. Postsurgical changes from esophagectomy with gastric pull-thr ough. No suspicious wall thickening identified. VASCULATURE: No aortic aneurysm. MUSCULOSKELETAL: No acute osseous abnormalities. No aggressive osseous lesion. [facility] of the thoracic s pine. SOFT TISSUES/LYMPH NODES: Unremarkable. LOWER NECK: No significant findings. ABDOMEN: ABDOMEN LIVER: Unremarkable GALLBLADDER AND BILE DUCTS: Unremarkable. PANCREAS: Unremarkable. SPLEEN: Unremarkable. ADRENAL GLANDS: Unremarkable. KIDNEYS AND URETERS: No evidence of hydronephrosis. Similar nonobstructing left axilla measuring up t o 9 mm no right renal calculi. The kidneys enhance symmetrically. Contrast is demonstrated within bot h collecting systems on the delayed phase. PELVIS BLADDER: Underdistended with circumferential wall thickening and some trace anterior fat stranding ag ain. REPRODUCTIVE: Coarse calcifications of the prostate gland are identified. Small right hydrocele. ABDOMEN & PELVIS STOMACH AND BOWEL: Postsurgical changes from esophagectomy and gastric pull-through. No suspicious fo cheri wall thickening. Enteric contrast reaches the rectum. No evidence of bowel obstruction. Few scatt ered colonic diverticula. PERITONEUM: No evidence of pneumoperitoneum or free fluid. VASCULATURE: No evidence of aortic aneurysm. MUSCULOSKELETAL: No acute osseous abnormalities. No aggressive osseous lesion. LYMPH NODES: No evidence for lymphadenopathy. SOFT TISSUE/ABDOMINAL WALL: Postsurgical changes of the midline anterior abdominal wall. Right fat containing/fatty changes to the inguinal canal. IMPRESSION: 1. Stable Post surgical changes of esophagectomy with gastric pull-through without evidence for recu rrent residual disease. No new or enlarging lymph nodes identified. 2. Circumferential wall thickening of the urinary bladder with mild similar surrounding fat strandin g. May relate to under distention versus cystitis. Correlate with urinalysis. 3. Nonobstructive left renal calculi. [facility], , 02/29/2024 4:07 PM
== END | disposition home or self-care (01) ==
LOC: RADCTMAIN 10:50
PROVIDERS: ATTEND Internal Medicine Hematology & Oncology
DX: C15.5 Malignant neoplasm of lower third of esophagus (principal); M12.9 Arthropathy, unspecified; I10 Essential (primary) hypertension; I48.91 Unspecified atrial fibrillation; N20.0 Calculus of kidney; Z98.890 Other specified postprocedural states
CPT/HCPCS: 82565; 84520; 71260; 74177; 36415; Q9967

== ENCOUNTER → 2024-05-23 | Outpatient (CLI) | payer BC ==
[2024-05-23 13:00] LABS: African American GFR (CKD) >90 (>60 ml/min/1.73 sqM); Blood Urea Nitrogen 18 mg/dL (9-20); Non-African American GFR(CKD) >90 (>60 ml/min/1.73 sqM)
--- NOTE | 2024-05-23 14:52 | CT ---
EXAMINATION TYPE: CT ChestAbdPelvis w con DATE OF EXAM: 05/23/2024 COMPARISON: CLINICAL INDICATION: Male, 64 years old with history of C15.[address] DLP: 1276 mGycm Automated exposure control for dose reduction was used. CONTRAST: CT scan of the chest, abdomen and pelvis is performed with Oral Contrast and with IV Contrast, patien t injected with 100 mL of Isovue 300. FINDINGS: CT chest: There are postsurgical changes of esophagectomy and gastric pull-through procedure. There is no new or suspicious lung mass or nodule. Mild stable pleural thickening and subpleural pare nchymal changes in the right lower lobe. There is no abnormal airspace/consolidative density or abnormal interstitial density. There is no pleural effusion, pleural thickening or pneumothorax. 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 There is no mediastinal, hilar or axillary adenopathy. No focal osseous lesions are seen. CT abdomen and pelvis: Gallbladder is normal without distention, pericholecystic fluid, wall thickening or gallstone. There is no biliary ductal dilatation. There is no focal mass or organomegaly involving the liver, pancreas, spleen or adrenal glands.. There is no solid renal mass or hydronephrosis. There are multiple stable nonobstructing left renal c alcifications largest which is approximately 10 mm. There is no retroperitoneal adenopathy or hemorrhage in the caliber of the abdominal aorta is normal. The bowel loops are normal in caliber and there is no dilatation or obstruction. No inflammatory bey ges identified in the bowel wall and mesentery. There is no free intracranial air or fluid. There is no pelvic mass or adenopathy. There is no free fluid within the pelvis. There is a stable ri ght hydrocele. No focal osseous lesions are seen. Soft tissues of the abdominal and pelvis are intact. IMPRESSION: No evidence of recurrent or metastatic disease within the chest, abdomen or pelvis. [facility], , 05/23/2024 2:50 PM
== END | disposition home or self-care (01) ==
LOC: RADCTMAIN 12:13
PROVIDERS: ATTEND Internal Medicine Hematology & Oncology
DX: C15.5 Malignant neoplasm of lower third of esophagus (principal); I48.91 Unspecified atrial fibrillation; M12.9 Arthropathy, unspecified; I10 Essential (primary) hypertension
CPT/HCPCS: 82565; 84520; 71260; 74177; 36415; Q9967